=== PATIENT | male | born 1965 | race Caucasian/White ===

== ENCOUNTER 2020-06-30 12:16 | Inpatient (IN) | payer OTHER ==
[~2020-06-30] VITALS: Ht 175.3 cm; Wt 194.8 kg
[~2020-06-30 12:16] MED LIST: ALBU2.5V8 NEB; ALPR0.25 PO; ASPI-886 PO; ATOR10TA60 PO; BUSP10TA PO; CIPR200V4 IV; DICL100G54 TP; FLUC100T7 PO; FURO-68 PO; GABA-585 PO; GLIM4TAB8 PO; HYDR10TA2 PO; INSU100V31 SQ; INSU200I4 SQ; LISI10TA2 PO; LORA0.5T PO; LORA0.5T96 PO; MECL12.574 PO; METF500T16 PO; METO50TA29 PO; METO50TA4 PO; OXYC10TA46 PO; OXYC1TAB22 PO; PARO10TA57 PO; PHEN37.599 PO; PIOG30TA41 PO; PROC25SU21 RC; SENN8.6T4 PO; SIMV5TAB PO; TOPI25TA52 PO; WARF1TAB69 PO; ZOLP5TAB PO
[2020-06-30 13:06] LABS: BASO # 0.1 x10^3/uL (0.0-0.2); BASO % 1 % (0-3); EOS # 0.2 x10^3/uL (0.0-0.7); EOS % 2 % (0-3); HEMATOCRIT 38.5 % (39.0-53.0); HEMOGLOBIN 12.8 g/dL (13.0-17.5); LYMPH # 1.7 x10^3/uL (1.0-4.8); LYMPH % 16 % (24-48); MEAN CORPUSCULAR HEMOGLOBIN 30 pg (25-35); MEAN CORPUSCULAR HGB CONC 33 g/dL (31-37); MEAN CORPUSCULAR VOLUME 88 fL (79-100); MONO # 0.9 x10^3/uL (0.0-1.1); MONO % 9 % (0-9); NEUT # 7.9 x10^3/uL (1.8-7.7); NEUT % 73 % (31-73); PLATELET COUNT 229 x10^3/uL (140-400); RED BLOOD COUNT 4.35 x10^6/uL (4.30-5.70); RED CELL DISTRIBUTION WIDTH 14.8 % (11.5-14.5); WHITE BLOOD COUNT 10.7 x10^3/uL (4.0-11.0)
[2020-06-30 13:18] LABS: CALCIUM 8.9 mg/dL (8.5-10.1); CREATININE 0.7 mg/dL (0.7-1.3); POTASSIUM 3.8 mmol/L (3.5-5.1)
[2020-06-30 13:24] LABS: ALBUMIN/GLOBULIN RATIO 0.8 (1.0-1.7); MAGNESIUM 2.1 mg/dL (1.8-2.4); TOTAL BILIRUBIN 0.3 mg/dL (0.2-1.0); TOTAL PROTEIN 6.7 g/dL (6.4-8.2)
--- NOTE | 2020-06-30 13:57 | RAD ---
EXAM: CHEST 1 VIEW History: Shortness of breath COMPARISON: 06/19/2019 TECHNIQUE: Single portable radiograph of the chest FINDINGS: Mild cardiomegaly. Mild bibasilar lung airspace opacities likely atelectasis or infiltrate s slightly increased The costophrenic sulci are clear and well demarcated. IMPRESSION: Mild bibasilar airspace opacities likely atelectasis or infiltrates improved since prior exam.. Electronically signed by: Kevin Saenz MD (06/30/2020 1:54 PM) [id number]
[2020-06-30] MEDS ORDERED: FUROSEMIDE 40 MG/4 ML VIAL. IVP ONE (14:15)
--- NOTE | 2020-06-30 14:19 | PHYS DOC ---
Past Medical History Past Medical History: CHF, Diabetes-Type II, Hypertension Additional Past Medical Histor: Chronic back pain Past Surgical History: Tonsillectomy Smoking Status: Former Smoker Alcohol Use: None Drug Use: None General Adult EDM: Chief Complaint: SHORTNESS OF BREATH HPI: HPI: Patient is a 54 year old male who presented to ER for evaluation of trouble breathing with exertion that progressively get worse over 1 month. Patient also said he retained a lot of fluid, gaining more weight. Patient has history of CHF, he is on 40 of Lasix daily at home. Patient also has history of COPD, he is on 1.5 L oxygen at home all the time. Patient denies any cough or fever. Patient denies any chest pain. Patient was diagnosed with COVID-19 infection 4 months ago. Patient was admitted here years ago due to CHF and COPD, he had an echocardiogram done at that time that showed : "Left ventricle systolic function is mildly diminished. The Ejection Fraction is 45%. There is normal LV segmental wall motion. Trace mitral regurgitation. Mild tricuspid regurgitation. The PA pressure was estimated at 33 mmHg. There is no evidence of significant pericardial effusion. Signed by : Kristopher Farah, Electronically Approved : 06/21/2019 18:07:07" Review of Systems: Review of Systems: Constitutional: Denies fever or chills. [] Eyes: Denies change in visual acuity. [] HENT: Denies nasal congestion or sore throat. [] Respiratory: Denies cough, POSITIVE FOR shortness of breath. [] Cardiovascular: Denies chest pain, POSITIVE FOR edema. [] GI: Denies abdominal pain, nausea, vomiting, bloody stools or diarrhea. [] : Denies dysuria. [] Musculoskeletal: Denies back pain or joint pain. [] Integument: Denies rash. [] Neurologic: Denies headache, focal weakness or sensory changes. [] Endocrine: Denies polyuria or polydipsia. [] Lymphatic: Denies swollen glands. [] Psychiatric: Denies depression or anxiety. [] Heart Score: Risk Factors: Risk Factors: DM, Current or recent (<one month) smoker, HTN, HLP, family history of CAD, obesity. Risk Scores: Score 0 - 3: 2.5% MACE over next 6 weeks - Discharge Home Score 4 - 6: 20.3% MACE over next 6 weeks - Admit for Clinical Observation Score 7 - 10: 72.7% MACE over next 6 weeks - Early Invasive Strategies Current Medications: Current Medications Medications (Trade) Dose Ordered Sig/Jeremy Start Time Stop Time Status Last Admin Dose Admin Furosemide (Lasix) 60 mg 1X ONCE 06/30/20 14:15 06/30/20 14:16 Allergies: Allergies: Allergies Coded Allergies Type Severity Reaction Last Updated Verified Penicillins Allergy Intermediate Rash 06/20/19 Yes guaifenesin Allergy Intermediate 06/20/19 Yes theophylline Allergy Intermediate 06/20/19 Yes Physical Exam: PE: Constitutional: Well developed, well nourished, no acute distress, non-toxic appearance. [] HENT: Normocephalic, atraumatic, bilateral external ears normal, oropharynx moist, no oral exudates, nose normal. [] Eyes: PERRLA, EOMI, conjunctiva normal, no discharge. [] Neck: Normal range of motion, no tenderness, supple, no stridor. [] Cardiovascular: TACHYCARDIA, IRREGULAR rate regular rhythm, no murmur [] Lungs & Thorax: Bilateral breath sounds clear to auscultation [] Abdomen: Bowel sounds normal, soft, no tenderness, no masses, no pulsatile masses. ABDOMINAL WALL EDEMA Skin: Warm, dry, no erythema, no rash. [] Back: No tenderness, no CVA tenderness. [] Extremities: No tenderness, no cyanosis, no clubbing, ROM intact, BILATERAL LOWER EXTREMITIES KAYY Neurologic: Alert and oriented X 3, normal motor function, normal sensory function, no focal deficits noted. [] Psychologic: Affect normal, judgement normal, mood normal. [] Current Patient Data: Labs: Laboratory Tests Test 06/30/20 12:52 White Blood Count 10.7 x10^3/uL (4.0-11.0) Red Blood Count 4.35 x10^6/uL (4.30-5.70) Hemoglobin 12.8 g/dL (13.0-17.5) L Hematocrit 38.5 % (39.0-53.0) L Mean Corpuscular Volume 88 fL (79-100) Mean Corpuscular Hemoglobin 30 pg (25-35) Mean Corpuscular Hemoglobin Concent 33 g/dL (31-37) Red Cell Distribution Width 14.8 % (11.5-14.5) H Platelet Count 229 x10^3/uL (140-400) Neutrophils (%) (Auto) 73 % (31-73) Lymphocytes (%) (Auto) 16 % (24-48) L Monocytes (%) (Auto) 9 % (0-9) Eosinophils (%) (Auto) 2 % (0-3) Basophils (%) (Auto) 1 % (0-3) Neutrophils # (Auto) 7.9 x10^3/uL (1.8-7.7) H Lymphocytes # (Auto) 1.7 x10^3/uL (1.0-4.8) Monocytes # (Auto) 0.9 x10^3/uL (0.0-1.1) Eosinophils # (Auto) 0.2 x10^3/uL (0.0-0.7) Basophils # (Auto) 0.1 x10^3/uL (0.0-0.2) Sodium Level 141 mmol/L (136-145) Potassium Level 3.8 mmol/L (3.5-5.1) Chloride Level 103 mmol/L (98-107) Carbon Dioxide Level 36 mmol/L (21-32) H Anion Gap 2 (6-14) L Blood Urea Nitrogen 14 mg/dL (8-26) Creatinine 0.7 mg/dL (0.7-1.3) Estimated GFR (Cockcroft-Gault) 118.0 BUN/Creatinine Ratio 20 (6-20) Glucose Level 123 mg/dL (70-99) H Calcium Level 8.9 mg/dL (8.5-10.1) Magnesium Level 2.1 mg/dL (1.8-2.4) Total Bilirubin 0.3 mg/dL (0.2-1.0) Aspartate Amino Transferase (AST) 15 U/L (15-37) Alanine Aminotransferase (ALT) 32 U/L (16-63) Alkaline Phosphatase 73 U/L (46-116) Troponin I Quantitative < 0.017 ng/mL (0.000-0.055) ST-Gbm-V-Type Natriuretic Peptide 699 pg/mL (0-124) H Total Protein 6.7 g/dL (6.4-8.2) Albumin 3.0 g/dL (3.4-5.0) L Albumin/Globulin Ratio 0.8 (1.0-1.7) L Lipase 52 U/L (73-393) L Laboratory Tests 06/30/20 12:52 Laboratory Tests 06/30/20 12:52 Vital Signs: Vital Signs Date Time Temp Pulse Resp B/P (MAP) Pulse Ox O2 Delivery O2 Flow Rate FiO2 06/30/20 12:35 98.6 104 26 144/100 (115) Room Air 98.6 EKG: EKG: EKG was done at 1241, heart rate of 103 bpm, atrial fibrillation no STEMI. Radiology/Procedures: Radiology/Procedures: [id number] [place] [address] IMAGING REPORT Signed PATIENT: LORENZO PAT ACCOUNT: [id number] : 1965 LOCATION: ER AGE: 54 SEX: M EXAM STATUS: REG ER ORD. PHYSICIAN: NASIR REDDING DO REASON: soa PROCEDURE: CHEST AP ONLY EXAM: CHEST 1 VIEW History: Shortness of breath COMPARISON: 06/19/2019 TECHNIQUE: Single portable radiograph of the chest FINDINGS: Mild cardiomegaly. Mild bibasilar lung airspace opacities likely atelectasis or infiltrates slightly increased The costophrenic sulci are clear and well demarcated. IMPRESSION: Mild bibasilar airspace opacities likely atelectasis or infiltrates improved since prior exam.. Electronically signed by: Kevin Saenz MD (06/30/2020 1:54 PM) [id number] DICTATED and SIGNED BY: KEVIN SAENZ MD DATE: 06/30/20 [id number] Course & Med Decision Making: Course & Med Decision Making Pertinent Labs and Imaging studies reviewed. (See chart for details) 54-year-old man who was evaluated in ER due to trouble breathing with exertion getting worse over 1 month. Patient had COVID-19 infection 4 months ago, patient said he has been gaining weight and retaining fluid. Patient has been taking Lasix at home but not helping much. Patient was found to be in atrial fibrillation with RVR, his heart rate has been fluctuating between 100-1 40 in the ER. Patient will be given Cardizem, IV Lasix, will get him admitted to hospital for further evaluation and treatment. Dragon Disclaimer: Dragon Disclaimer: This electronic medical record was generated, in whole or in part, using a voice recognition dictation system. Departure Departure Impression: Primary Impression: CHF (congestive heart failure) Additional Impression: Atrial fibrillation with RVR Disposition: ADMITTED INPT THIS HOSP Admitting Physician: Mina Hernandez Condition: IMPROVED Referrals: MINA HERNANDEZ MD (PCP) NASIR REDDING DO Jun 30, 2020 14:19
[2020-06-30] MEDS ORDERED: dilTIAZem IV PUSH 25 MG/5 ML VIAL IVP ONE (15:15)
[2020-06-30 16:43] LABS: BILIRUBIN,URINE NEGATIVE (NEG); CLARITY,URINE CLEAR; COLOR,URINE YELLOW; NITRITE,URINE NEGATIVE (NEG); PH,URINE 5.5 (<5.0-8.0); PROTEIN,URINE NEGATIVE (NEG-TRACE); UROBILINOGEN,URINE 0.2 mg/dL (0.2 mg/dL)
[2020-06-30 16:57] LABS: BACTERIA,URINE FEW /HPF (0-FEW); RBC,URINE 0 /HPF (0-2); WBC,URINE OCC /HPF (0-4)
[2020-06-30 20:09] VITALS: BP 182/86
[2020-06-30 21:09] VITALS: BP 141/68
[2020-06-30] MEDS ORDERED: ASPI325T8 PO (21:19)
[2020-06-30 22:09] VITALS: BP 142/67
[2020-06-30] MEDS ORDERED: ALBUTEROL SULFATE 2.5 MG/3 ML NEBU. NEB PRN (22:15)
[2020-06-30] MEDS ORDERED: DEXTROSE 50% 25 GM / 50ML DISP.SYRIN. IV PRN (22:15)
[2020-06-30 22:54] VITALS: BP 149/74
[2020-06-30] MEDS: ATORVASTATIN CALCIUM 10 MG TABLET. PO SCH (22:58)
[2020-06-30] MEDS: INSULIN GLARGINE SYRINGE. SQ SCH (22:59)
[2020-06-30 23:07] VITALS: BP 149/74
[2020-06-30 23:09] VITALS: BP 146/80
[2020-07-01] VITALS (16 sets, daily range): BP systolic 125–223; BP diastolic 58–100
[2020-07-01] MEDS ORDERED: ASPIRIN ENTERIC COATED 81 MG TABLET.DR. PO SCH (08:00)
[2020-07-01] MEDS: INSULIN LISPRO 300 UNITS/3 ML VIAL. SQ SCH ×3 (08:00→17:23)
[2020-07-01] MEDS ORDERED: METOPROLOL SUCC 24HR ER 50 MG TAB.ER.24H. PO SCH (09:00)
[2020-07-01] MEDS ORDERED: FUROSEMIDE 40 MG TABLET. PO SCH (09:00)
--- NOTE | 2020-07-01 09:01 | HP ---
ADMIT DATE: 06/30/2020 CHIEF COMPLAINT AND HISTORY OF PRESENT ILLNESS: This 54-year-old white male is well known to me from followup in the office. The patient presented to the Emergency Room after a month or more progressive shortness of breath and increasing generalized body edema. He admits to orthopnea. He has gotten more short of breath with trying to transfer or move around his house. The patient also complains of lower back and hip and leg discomfort, which he has had for some time, which has gotten much worse. His remedy to that has been trying of changing positions, but is miserable pretty much all the time. He was admitted for what was felt to be an exacerbation of COPD versus congestive heart failure and atrial fibrillation with a rapid ventricular response that he had at the time of admission, which is new. PAST MEDICAL HISTORY: Remarkable for hypertension, diabetes, chronic back pain, congestive heart failure, COPD. He has been felt to have Pickwickian-type syndrome in the past. MEDICATIONS: Brought with the patient, listed on the computer and have been addressed. ALLERGIES: HE IS ALLERGIC TO GUAIFENESIN, PENICILLIN, THEOPHYLLINE. SOCIAL HISTORY: He is a former smoker. Does not drink alcohol or use drugs. Lives at home with his . FAMILY HISTORY: Noncontributory. REVIEW OF SYSTEMS: As mentioned above. PHYSICAL EXAMINATION: GENERAL: He is well-developed, well-nourished, obese white male sitting up, eating breakfast, in no acute respiratory distress. VITAL SIGNS: Stable. He is afebrile. O2 is good at 2 liters per nasal cannula. HEAD, EYES, EARS, NOSE AND THROAT: Remarkable for oxygen per nasal cannula. NECK: Supple without adenopathy or thyromegaly. CHEST: Reveals distant breath sounds. HEART: Irregularly irregular. ABDOMEN: Obese without hepatosplenomegaly, masses, tenderness. EXTREMITIES: Reveal diffuse anasarca. LABORATORY DATA: Shows hemoglobin 12.8. White count and platelets are within normal limits. BNP is elevated at 699. CO2 was high at 36 suggestive of CO2 retention. Troponin x 2 has been negative. Albumin is low at 3. Urinalysis is unremarkable. Chest x-ray done on admission shows mild bibasilar airspace opacities, likely atelectasis or infiltrates, improved since prior exam. IMPRESSION: 1. Congestive heart failure. 2. Atrial fibrillation with rapid ventricular response. 3. Chronic obstructive pulmonary disease. 4. Diabetes. PLAN: I am going to ask Cardiology as well as Pulmonary to see the patient in consultation. We will continue to try diuresis for which at least the initial round here has not been very successful in producing any and the patient will be monitored, managed and treated appropriately. MINA SIMEON MD DR: RACHEL/best JOB#: [id number] / [id number]
[2020-07-01] MEDS: LISINOPRIL 10 MG TABLET PO SCH (09:22)
--- NOTE | 2020-07-01 10:15 | PDOC2 ---
ADEOLA JJ HAT IRONER 07/01/20 1015: CARDIAC CONSULT DATE OF CONSULT Date of Consult DATE: 07/01/20 TIME: 10:13 REASON FOR CONSULT Reason for Consult: AFIB RVR, CHF SOURCE Source: Chart review, Patient HISTORY OF PRESENT ILLNESS HISTORY OF PRESENT ILLNESS This is a pleasnt 54 yo male admitted for complains of shortness of breath. Reports that he uses 1-3 LPM of O2 at home. He has been having SOA in the last month and worse in the last 2 weeks. No chest pain and no palpitations but positive for significant increase in leg swelling. Denies fever or productive cough. NO fever or chills. He did have Covid-19 about 4 months ago. He does ta ke lasix but reported did not call his Dr. and did not take any extra dose of lasix. He does not follow his DM diet and his BG at home is averaging about 180s when he checks it. He does not check his BP at home. Upon admission he was noted with AFIB RVR which is new for him. PAST MEDICAL HISTORY Cardiovascular: CHF, HTN, Hyperlipidemia, Other (cardiiomyopathy) Pulmonary: COPD, Pneumonia, Other (LAURA; covid-19) CENTRAL NERVOUS SYSTEM: Other (tremors) GI: GERD Musculoskeletal: low back pain, Osteoarthritis Endocrine: Diabetes (2) PAST SURGICAL HISTORY Past Surgical History: Tonsillectomy FAMILY HISTORY Family History noncontributory SOCIAL HISTORY Smoke: Quit ALCOHOL: none Drugs: None Lives: Alone CURRENT MEDICATIONS CURRENT MEDICATIONS Current Medications Medications (Trade) Dose Ordered Sig/Jeremy Route PRN Reason Start Time Stop Time Status Last Admin Dose Admin Furosemide (Lasix) 60 mg 1X ONCE IVP 06/30/20 14:15 06/30/20 14:16 DC 06/30/20 15:14 Diltiazem HCl (Cardizem Iv Push) 40 mg 1X ONCE IVP 06/30/20 15:15 06/30/20 15:20 DC 06/30/20 15:54 Diltiazem HCl 125 mg/Sodium Chloride 125 ml @ 5 mls/hr CONT PRN IV SEE I/O RECORD 06/30/20 16:00 07/01/20 09:20 Atorvastatin Calcium (Lipitor) 10 mg QHS PO 06/30/20 23:00 06/30/20 22:58 Furosemide (Lasix) 40 mg DAILY PO 07/01/20 09:00 07/01/20 09:21 Lisinopril (Prinivil) 10 mg DAILY PO 07/01/20 09:00 07/01/20 09:22 Metoprolol Succinate (Toprol Xl) 50 mg DAILY PO 07/01/20 09:00 07/01/20 09:22 Insulin Glargine (Lantus Syringe) 160 unit QHS SQ 06/30/20 23:00 06/30/20 22:59 Aspirin (Ecotrin) 81 mg DAILYWBKFT PO 07/01/20 08:00 07/01/20 09:22 ALLERGIES ALLERGIES: Coded Allergies: Penicillins (Verified Allergy, Intermediate, Rash, 06/20/19) guaifenesin (Verified Allergy, Intermediate, 06/20/19) theophylline (Verified Allergy, Intermediate, 06/20/19) ROS Review of System 14 point ROS evaluated with pertinent positives noted per HPI PHYSICAL EXAM General: Alert, Oriented X3, Cooperative, No acute distress HEENT: Atraumatic, Mucous membr. moist/pink Lungs: Other (diminished) Heart: Regular rate (SR), Other (distant heart sounds) Abdomen: Other (Obese) Extremities: No cyanosis, Other (big edematous legs) Skin: Other (LE venous dermatitis) Neuro: Normal speech, Sensation intact Psych/Mental Status: Mental status NL, Mood NL MUSCULOSKELETAL: Osteoarthritic changes both hands VITALS/I&O VITALS/I&O: Vital Signs Date Time Temp Pulse Resp B/P (MAP) Pulse Ox O2 Delivery O2 Flow Rate FiO2 07/01/20 09:22 75 190/85 07/01/20 08:58 95 Nasal Cannula 2.5 07/01/20 07:00 98.3 22 98.3 I & O 06/30/20 06/30/20 07/01/20 15:00 23:00 07:00 Intake Total 1040 ml Output Total 350 ml 200 ml Balance -350 ml 840 ml LABS Lab: Laboratory Tests Test 06/30/20 12:52 06/30/20 16:10 06/30/20 17:24 White Blood Count 10.7 x10^3/uL (4.0-11.0) Red Blood Count 4.35 x10^6/uL (4.30-5.70) Hemoglobin 12.8 g/dL (13.0-17.5) L Hematocrit 38.5 % (39.0-53.0) L Mean Corpuscular Volume 88 fL (79-100) Mean Corpuscular Hemoglobin 30 pg (25-35) Mean Corpuscular Hemoglobin Concent 33 g/dL (31-37) Red Cell Distribution Width 14.8 % (11.5-14.5) H Platelet Count 229 x10^3/uL (140-400) Neutrophils (%) (Auto) 73 % (31-73) Lymphocytes (%) (Auto) 16 % (24-48) L Monocytes (%) (Auto) 9 % (0-9) Eosinophils (%) (Auto) 2 % (0-3) Basophils (%) (Auto) 1 % (0-3) Neutrophils # (Auto) 7.9 x10^3/uL (1.8-7.7) H Lymphocytes # (Auto) 1.7 x10^3/uL (1.0-4.8) Monocytes # (Auto) 0.9 x10^3/uL (0.0-1.1) Eosinophils # (Auto) 0.2 x10^3/uL (0.0-0.7) Basophils # (Auto) 0.1 x10^3/uL (0.0-0.2) Sodium Level 141 mmol/L (136-145) Potassium Level 3.8 mmol/L (3.5-5.1) Chloride Level 103 mmol/L (98-107) Carbon Dioxide Level 36 mmol/L (21-32) H Anion Gap 2 (6-14) L Blood Urea Nitrogen 14 mg/dL (8-26) Creatinine 0.7 mg/dL (0.7-1.3) Estimated GFR (Cockcroft-Gault) 118.0 BUN/Creatinine Ratio 20 (6-20) Glucose Level 123 mg/dL (70-99) H Calcium Level 8.9 mg/dL (8.5-10.1) Magnesium Level 2.1 mg/dL (1.8-2.4) Total Bilirubin 0.3 mg/dL (0.2-1.0) Aspartate Amino Transferase (AST) 15 U/L (15-37) Alanine Aminotransferase (ALT) 32 U/L (16-63) Alkaline Phosphatase 73 U/L (46-116) Troponin I Quantitative < 0.017 ng/mL (0.000-0.055) < 0.017 ng/mL (0.000-0.055) NN-Huq-W-Type Natriuretic Peptide 699 pg/mL (0-124) H Total Protein 6.7 g/dL (6.4-8.2) Albumin 3.0 g/dL (3.4-5.0) L Albumin/Globulin Ratio 0.8 (1.0-1.7) L Lipase 52 U/L (73-393) L Thyroid Stimulating Hormone (TSH) 2.399 uIU/mL (0.358-3.74) Urine Collection Type Unknown Urine Color Yellow Urine Clarity Clear Urine pH 5.5 (<5.0-8.0) Urine Specific [place] <=1.005 (1.000-1.030) Urine Protein Negative mg/dL (NEG-TRACE) Urine Glucose (UA) Negative mg/dL (NEG) Urine Ketones (Stick) Negative mg/dL (NEG) Urine Blood Negative (NEG) Urine Nitrite Negative (NEG) Urine Bilirubin Negative (NEG) Urine Urobilinogen Dipstick 0.2 mg/dL (0.2 mg/dL) Urine Leukocyte Esterase Negative (NEG) Urine RBC 0 /HPF (0-2) Urine WBC Occ /HPF (0-4) Urine Squamous Epithelial Cells Occ /LPF Urine Bacteria Few /HPF (0-FEW) Laboratory Tests 06/30/20 12:52 Laboratory Tests 06/30/20 12:52 ECHOCARDIOGRAM ECHOCARDIOGRAM <Conclusion> Technically difficult study. Left ventricle systolic function is mildly diminished. The Ejection Fraction is 45%. There is normal LV segmental wall motion. Trace mitral regurgitation. Mild tricuspid regurgitation. The PA pressure was estimated at 33 mmHg. There is no evidence of significant pericardial effusion. DATE: 06/21/19 1234 ASSESSMENT/PLAN ASSESSMENT/PLAN 1. AFIB RVR: new finding. No SR 2. HTN urgency: does not check BP at home 3. Acute on chronic diastolic CHF 4. Morbid obesity with likely LAURA 5. DM2 6. HLP 7. Acute on chronic hypercapnic respiratory failure with likely LAURA and CHF Recommendations 1. Lasix therapy K replacement 2. ECASA. MCOT and note burden and guid any need for antiarrhythmic therapy and anticoagulation 3. Toprol XL 100 mg daily. 4. Follow up in office 5. Bipap PRN especially at hs 6. TTE TINY CHURCH MD 07/01/20 9865: CARDIAC CONSULT ASSESSMENT/PLAN ASSESSMENT/PLAN Patient seen and examined. Agree with VENDOR MANAGEMENT SPECIALIST's assessment and plan. AF with RVR, newly diagnosed, presently back in SR Acute on chr diastolic HF better compensated Agree with BB for AF and BP control Check 2D echo to assess LVF Plan ischemic evaluation and event monitor as outpatient Thank you for your consultation ADEOLA JJ APRN Jul 01, 2020 10:15 TINY CHURCH MD Jul 01, 2020 16:48
[2020-07-01] MEDS ORDERED: METOPROLOL SUCC 24HR ER 50 MG TAB.ER.24H. PO ONE (11:00)
[2020-07-01] MEDS ORDERED: METOPROLOL TART IMMED RELEASE 50 MG TABLET. PO ONE (11:30)
[2020-07-01] MEDS ORDERED: FUROSEMIDE 40 MG/4 ML VIAL. IVP ONE (11:30)
[2020-07-01] MEDS ORDERED: POTASSIUM CHLORIDE 20 MEQ TABLET.ER. PO ONE (11:30)
[2020-07-01] MEDS ORDERED: PERFLUTREN PROTEIN-A MICROSPHR 0.22 MG/ML 3 ML VIAL. IV ONE ×2 (13:00)
--- NOTE | 2020-07-01 14:47 | NUR ---
SS following for discharge planning. SS reviewed pt chart and discussed with pt RN. Pt is from home with spouse and is currently requiring oxygen via nasal canula. Pt has home oxygen. Cardiology following. SS will continue to follow for discharge planning.
[2020-07-01] MEDS: FUROSEMIDE 40 MG/4 ML VIAL. IVP SCH (17:22)
--- NOTE | 2020-07-01 19:08 | CONS ---
DATE OF CONSULTATION: 07/01/2020 ATTENDING PHYSICIAN: Ubaldo Hernandez MD REASON FOR CONSULTATION: The patient seen in pulmonary consultation at the request of Dr. Hernandez for abnormal x-ray and increasing shortness of air. HISTORY OF PRESENT ILLNESS: The patient is a 54-year-old that is known to me from previous hospitalization. In fact, he was here not too long ago with acute on chronic hypoxemic hypercapnic respiratory failure, acute on chronic diastolic heart failure and clinical symptoms compatible with obstructive sleep apnea. At that time, I recommended that the patient undergo polysomnogram. He declined as a result of having to $800 out of pocket. He now presents for increasing shortness of breath. He also had some fluid retention. He was having difficulty lying down flat. He normally wears 1 liter of oxygen at rest and 3 liters with exertion. He had an x-ray, which revealed basilar infiltrates. I was asked to see him in consultation. Since admission, he has been on oxygen supplementation around 2-3 liters. He has been diuresed. He denies fever or chills. No COVID-19 exposures. PAST MEDICAL HISTORY: Remarkable for diabetes, chronic back problems, morbid obesity, hypertension. He did have asthma as a child. He also smoked and possibly has a combination of COPD with an asthma component, he quit 5 years ago. He has a clinical presentation compatible with obstructive sleep apnea. As indicated above, the patient declined a polysomnogram as a result of out of pocket copay. PAST SURGICAL HISTORY: No recent major surgeries. ALLERGIES: PENICILLIN, GUAIFENESIN, AND THEOPHYLLINE. REVIEW OF SYSTEMS: As indicated above, otherwise a 10-point system was reviewed and negative. CONSTITUTIONAL: No fever or chills. EYES: No changes in visual acuity. HENT: No nasal congestion or sore throat. PULMONARY: As indicated above. CARDIOVASCULAR: No chest pain. No pressure. GASTROINTESTINAL: No nausea, vomiting, or diarrhea. GENITOURINARY: No dysuria or frequency. MUSCULOSKELETAL: No localized muscle aches or joint pains. SKIN: No new skin rashes. MEDICATIONS: List was reviewed. At one point, he was on Cardizem drip. He is receiving albuterol nebulizer. He is currently on diltiazem. He is on Lasix, metoprolol. PHYSICAL EXAMINATION: GENERAL: Morbid obese individual, in no respiratory distress. BMI was 64. He weighed 196 kilos. HEENT: Eyes, the sclerae were nonicteric. NECK: Jugular venous distention could not be assessed secondary to body habitus. CHEST: Full expansion. LUNGS: Poor flow. No wheezes. CARDIOVASCULAR: Regular rate and rhythm with S1, S2. No S3. ABDOMEN: Soft, nontender, nondistended. Obese. EXTREMITIES: 1+ edema. NEUROLOGIC: The patient was awake, alert. No focal deficits. LABORATORY DATA: White count was normal. Hemoglobin and hematocrit were noted. Electrolytes were noted. IMPRESSION: 1. Acute on chronic systolic heart failure. 2. Atrial fibrillation. 3. Hypertensive urgency. 4. Paroxysmal atrial fibrillation. 5. Morbid obesity. 6. Obstructive sleep apnea. 7. Chronic obstructive pulmonary disease with an asthma component. 8. COVID-19 infection 4 months ago. PLAN: 1. Recommend to continue diuresis. 2. Control heart rate. 3. Follow Cardiology input. 4. I reviewed the risks, benefits and alternatives to obtaining a polysomnogram. I will do my best to try to find a DME that will perform an outpatient polysomnogram at home with minimal out of pocket expense. The patient is to call my office if he gets discharged over the weekend to try to set that up. For now, continue oxygen supplementation, no need for antibiotics. RAMANDEEP VO MD DR: MELANIE/best JOB#: [id number] / [id number]
[2020-07-01] MEDS: INSULIN GLARGINE SYRINGE. SQ SCH (21:00)
[2020-07-01] MEDS: ATORVASTATIN CALCIUM 10 MG TABLET. PO SCH (21:00)
[2020-07-02 03:15] VITALS: BP 110/54
--- NOTE | 2020-07-02 05:31 | PDOC ---
PULMONARY PROGRESS NOTES DATE: 07/02/20 TIME: 05:29 Subjective on 02 1.5 lpm, sob better, denies cough, is on home 02, never had psg Vitals Vital Signs Date Time Temp Pulse Resp B/P (MAP) Pulse Ox O2 Delivery O2 Flow Rate FiO2 07/02/20 03:15 98.4 70 18 110/54 (72) 97 Nasal Cannula 2.5 98.4 ROS: No Nausea, No Chest Pain General: Alert, Oriented X4 HEENT: Other (nc at perrl ) Lungs: Clear Cardiovascular: S1, S2 Abdomen: Soft, Non-tender, Other Neuro Exam: Alert Extremities: Other (edema) Skin: Warm Labs Laboratory Tests Test 06/30/20 12:52 06/30/20 16:10 06/30/20 17:24 White Blood Count 10.7 x10^3/uL (4.0-11.0) Red Blood Count 4.35 x10^6/uL (4.30-5.70) Hemoglobin 12.8 g/dL (13.0-17.5) Hematocrit 38.5 % (39.0-53.0) Mean Corpuscular Volume 88 fL (79-100) Mean Corpuscular Hemoglobin 30 pg (25-35) Mean Corpuscular Hemoglobin Concent 33 g/dL (31-37) Red Cell Distribution Width 14.8 % (11.5-14.5) Platelet Count 229 x10^3/uL (140-400) Neutrophils (%) (Auto) 73 % (31-73) Lymphocytes (%) (Auto) 16 % (24-48) Monocytes (%) (Auto) 9 % (0-9) Eosinophils (%) (Auto) 2 % (0-3) Basophils (%) (Auto) 1 % (0-3) Neutrophils # (Auto) 7.9 x10^3/uL (1.8-7.7) Lymphocytes # (Auto) 1.7 x10^3/uL (1.0-4.8) Monocytes # (Auto) 0.9 x10^3/uL (0.0-1.1) Eosinophils # (Auto) 0.2 x10^3/uL (0.0-0.7) Basophils # (Auto) 0.1 x10^3/uL (0.0-0.2) Sodium Level 141 mmol/L (136-145) Potassium Level 3.8 mmol/L (3.5-5.1) Chloride Level 103 mmol/L (98-107) Carbon Dioxide Level 36 mmol/L (21-32) Anion Gap 2 (6-14) Blood Urea Nitrogen 14 mg/dL (8-26) Creatinine 0.7 mg/dL (0.7-1.3) Estimated GFR (Cockcroft-Gault) 118.0 BUN/Creatinine Ratio 20 (6-20) Glucose Level 123 mg/dL (70-99) Calcium Level 8.9 mg/dL (8.5-10.1) Magnesium Level 2.1 mg/dL (1.8-2.4) Total Bilirubin 0.3 mg/dL (0.2-1.0) Aspartate Amino Transf (AST/SGOT) 15 U/L (15-37) Alanine Aminotransferase (ALT/SGPT) 32 U/L (16-63) Alkaline Phosphatase 73 U/L (46-116) Troponin I Quantitative < 0.017 ng/mL (0.000-0.055) < 0.017 ng/mL (0.000-0.055) NU-Mim-P-Type Natriuretic Peptide 699 pg/mL (0-124) Total Protein 6.7 g/dL (6.4-8.2) Albumin 3.0 g/dL (3.4-5.0) Albumin/Globulin Ratio 0.8 (1.0-1.7) Lipase 52 U/L (73-393) Thyroid Stimulating Hormone (TSH) 2.399 uIU/mL (0.358-3.74) Urine Collection Type Unknown Urine Color Yellow Urine Clarity Clear Urine pH 5.5 (<5.0-8.0) Urine Specific [place] <=1.005 (1.000-1.030) Urine Protein Negative mg/dL (NEG-TRACE) Urine Glucose (UA) Negative mg/dL (NEG) Urine Ketones (Stick) Negative mg/dL (NEG) Urine Blood Negative (NEG) Urine Nitrite Negative (NEG) Urine Bilirubin Negative (NEG) Urine Urobilinogen Dipstick 0.2 mg/dL (0.2 mg/dL) Urine Leukocyte Esterase Negative (NEG) Urine RBC 0 /HPF (0-2) Urine WBC Occ /HPF (0-4) Urine Squamous Epithelial Cells Occ /LPF Urine Bacteria Few /HPF (0-FEW) Medications Active Scripts Medications Dose Route/Sig Max Daily Dose Days Date Category Aspirin 325 Mg Tablet 325 Mg PO DAILY 06/30/20 Reported Lasix (Furosemide) 40 Mg Tablet 1 Tab PO DAILY 30 06/24/19 Rx Topamax (Topiramate) 25 Mg Tablet 25 Mg PO BID 30 06/24/19 Rx Aspirin Ec (Aspirin) 81 Mg Tablet.dr 81 Mg PO DAILYWBKFT 30 06/24/19 Rx Lisinopril 10 Mg Tablet 10 Mg PO DAILY 30 06/24/19 Rx Toprol XL (Metoprolol Succinate) 50 Mg Tab.er.24h 50 Mg PO DAILY 30 06/24/19 Rx Atorvastatin Calcium 10 Mg Tablet 10 Mg PO QHS 30 06/24/19 Rx Proair Hfa (Albuterol Sulfate) 8.5 Gm Hfa.aer.ad 2.5 Mg NEB PRN Q4HRS PRN 30 06/24/19 Rx Novolog (Insulin Aspart) 100 Unit/1 Ml Vial 50 Unit SQ TIDWMEALHC 06/19/19 Reported Tresiba Flextouch U-200 (Insulin Degludec) 200 Unit/1 Ml Insuln.pen 160 Unit SQ DAILY 06/19/19 Reported Impression . IMPRESSION: 1. Acute on chronic systolic heart failure. 2. COVID-19 infection 4 months ago. 3. Hypertensive urgency. 4. Paroxysmal atrial fibrillation. 5. Morbid obesity. 6. Obstructive sleep apnea. 7. Chronic obstructive pulmonary disease with an asthma component. Plan . PLAN: 1. Recommend to continue diuresis. monitor k, cr 2. Control heart rate. 3. Follow Cardiology input. 4. krystle the importance of diagnosis tx discussed 5. BD 6. lose wt dr crowder will do his best to try to find a DME that will perform an outpatient polysomnogram at home with minimal out of pocket expense. discussed w pt MERCY Fallon MD Jul 02, 2020 05:31
[2020-07-02 07:00] VITALS: BP 131/71
[2020-07-02] MEDS: INSULIN LISPRO 300 UNITS/3 ML VIAL. SQ SCH ×3 (08:00→17:00)
[2020-07-02 08:12] LABS: CREATININE 0.9 mg/dL (0.7-1.3); GFR 88.3; MAGNESIUM 2.4 mg/dL (1.8-2.4); POTASSIUM 3.8 mmol/L (3.5-5.1)
[2020-07-02] MEDS: FUROSEMIDE 40 MG/4 ML VIAL. IVP SCH ×2 (08:26→16:09)
[2020-07-02] MEDS: METOPROLOL SUCC 24HR ER 100 MG TAB.ER.24H. PO SCH (08:27)
[2020-07-02] MEDS: POTASSIUM CHLORIDE 20 MEQ TABLET.ER. PO SCH (08:27)
[2020-07-02] MEDS: LISINOPRIL 10 MG TABLET PO SCH (08:27)
[2020-07-02] MEDS: ASPIRIN ENTERIC COATED 325 MG TABLET.DR. PO SCH (08:27)
--- NOTE | 2020-07-02 09:26 | PN ---
DATE: 07/02/2020 LOCATION: Room 209. SUBJECTIVE: This 54-year-old white male remains hospitalized for anasarca and congestive heart failure as well as atrial fibrillation with rapid ventricular response on admission. He feels like his breathing is definitely better, but not back to his baseline and swelling is definitely much worse. He complains a lot about his lower back and hips, allowing him not to lay in bed along with the orthopnea and get virtually no sleep and is requesting something for pain. I discussed with him with his breathing issues that should be minimal and he understands and would like to try some minimal medicine, which would make sense here with him being hospitalized. OBJECTIVE: VITAL SIGNS: Stable. He is afebrile. CHEST: Reveals distant breath sounds, but clear. HEART: Regular rate and rhythm. ABDOMEN: Benign. EXTREMITIES: With lots of edema. IMPRESSION: Congestive heart failure, clinically with some improvement; anasarca; atrial fibrillation with rapid ventricular response, controlled. PLAN: Continue diuresis, outpatient sleep study, follow kidney function and electrolytes. MINA SIMEON MD DR: RACHEL/best JOB#: [id number] / [id number]
--- NOTE | 2020-07-02 09:31 | CARD ---
MR#: [id number] Date of Study: 07/01/2020 Ordering Physician: ADEOLA JJ, Referring Physician: ADEOLA JJ Tech: Sruthi Leroy YRN APPROVED REPORT EXAM: Two-dimensional and M-mode echocardiogram with Doppler and color Doppler. Other Information Quality : Technically LimitedHR: 75bpm Rhythm : NSRTachycardiaNSRTechnically limited study due to body habitus. INDICATION Congestive Heart Failure Echo Enhancing Agent Indication: Endocardial border delineation Agent/Amount Used: Optison 6mL RISK FACTORS Hypertension Obesity Aortic Valve AoV Peak Matty.181.3cm/sAoV VTI43.1cm AO Peak GR.13.1mmHgAO Mean GR.7mmHg Mitral Valve MV E Rzkugxac645.3cm/sMV DECEL EFSL080ai MV A Kcxhvhuz04.7cm/sE/A Ratio1.4 Tricuspid Valve TR P. Ilvgzuji063go/sTR Peak Gr.37mmHg LEFT VENTRICLE The left ventricle appears normal size. The left ventricular systolic function appears normal. Estima delfino ejection fraction 60-65%. There is normal LV segmental wall motion. AORTIC VALVE Doppler revealed no significant aortic regurgitation. MITRAL VALVE Mild mitral regurgitation. TRICUSPID VALVE Doppler revealed at least mild tricuspid regurgitation. Estimated PAP 47 mmHg. GREAT VESSELS na PERICARDIAL EFFUSION There appears to be no evidence of significant pericardial effusion. Critical Notification Critical Value: No <Conclusion> Technically difficult study. Optison echo contrast used. The left ventricular systolic function appears normal. Estimated ejection fraction 60-65%. There is normal LV segmental wall motion. Mild mitral regurgitation. Mild tricuspid regurgitation. Estimated PAP 47 mmHg. There appears to be no evidence of significant pericardial effusion. Signed by : Kristopher Farah, Electronically Approved : 07/02/2020 09:30:38
[2020-07-02 10:51] VITALS: BP 114/37
[2020-07-02] MEDS: HYDROcodone/APAP 7.5/325MG 1 TAB TABLET PO PRN ×2 (13:17→23:13)
[2020-07-02 14:50] VITALS: BP 107/49
--- NOTE | 2020-07-02 16:16 | PDOC ---
PROGRESS NOTES Date of Service: DATE: 07/02/20 TIME: 16:16 Subjective Subjective Feeling better with improvement in dyspnea Objective Objective Vital Signs Date Time Temp Pulse Resp B/P (MAP) Pulse Ox O2 Delivery O2 Flow Rate FiO2 07/02/20 14:50 98.7 75 18 107/49 (68) 96 Nasal Cannula 2.5 98.7 Intake and Output 07/02/20 07:00 Intake Total 1200 ml Output Total 2525 ml Balance -1325 ml Intake Oral 1200 ml Output Urine Total 2525 ml Physical Exam Abdomen: Other (Obese) Heart: Regular rate (SR), Other (distant heart sounds) Extremities: No cyanosis, Other (big edematous legs) General: Alert, Oriented X3, Cooperative, No acute distress HEENT: Atraumatic, Mucous membr. moist/pink Lungs: Other (diminished) Neuro: Normal speech, Sensation intact Psych/Mental Status: Mental status NL, Mood NL Skin: Other (LE venous dermatitis) Assessment Assessment 1. AFIB RVR: newly diagnosed, presently back in sinus rhythm. Continue ASA. Plan event monitor as outpatient to guide antiarrhythmic and anticoagulation therapy 2. HTN urgency: does not check BP at home 3. Acute on chronic diastolic CHF, better compensated with diuresis. 2D echo showed LVEF 60-65%. Plan ischemic eval as outpatient 4. Morbid obesity with likely LAURA 5. DM2: Per IM 6. HLP: statins Plan Plan of Care Problems Medical Problems: (1) Atrial fibrillation with RVR Status: Acute (2) CHF (congestive heart failure) Status: Acute Comment Review of Relevant I have reviewed the following items uma (where applicable) has been applied. Labs Laboratory Tests Test 07/02/20 06:55 Sodium Level 139 mmol/L (136-145) Potassium Level 3.8 mmol/L (3.5-5.1) Chloride Level 99 mmol/L (98-107) Carbon Dioxide Level 36 mmol/L (21-32) Anion Gap 4 (6-14) Blood Urea Nitrogen 18 mg/dL (8-26) Creatinine 0.9 mg/dL (0.7-1.3) Estimated GFR (Cockcroft-Gault) 88.3 Glucose Level 110 mg/dL (70-99) Calcium Level 9.0 mg/dL (8.5-10.1) Magnesium Level 2.4 mg/dL (1.8-2.4) Medications Current Medications Acetaminophen/ Hydrocodone Bitart (Lortab 7.5/325) 1 tab PRN Q6HRS PRN PO PAIN Last administered on 07/02/20at 13:17; Start 07/02/20 at 13:00 Aspirin (Ecotrin) 325 mg DAILYWBKFT PO Last administered on 07/02/20at 08:27; Start 07/02/20 at 08:00 Metoprolol Succinate (Toprol Xl) 100 mg DAILY PO Last administered on 07/02/20at 08:27; Start 07/02/20 at 09:00 Potassium Chloride (Klor-Con) 20 meq DAILYWBKFT PO Last administered on at 08:27; Start 07/02/20 at 08:00 Vitals/I & O Vital Sign - Last 24 Hours 07/01/20 07/01/20 07/01/20 07/02/20 19:05 20:00 23:05 03:15 Temp 98.7 98.2 98.4 98.7 98.2 98.4 Pulse 74 74 70 Resp 20 18 18 B/P (MAP) 135/65 (88) 125/58 (80) 110/54 (72) Pulse Ox 96 99 97 O2 Delivery Nasal Cannula Nasal Cannula Nasal Cannula Nasal Cannula O2 Flow Rate 1.5 1.5 2.5 2.5 07/02/20 07/02/20 07/02/20 07/02/20 07:00 07:37 07:40 08:27 Temp 98.4 98.4 Pulse 74 74 Resp 18 B/P (MAP) 131/71 (91) 131/71 Pulse Ox 95 100 O2 Delivery Nasal Cannula Nasal Cannula Nasal Cannula O2 Flow Rate 2.5 2.5 2.5 07/02/20 07/02/20 07/02/20 07/02/20 08:27 10:51 13:17 14:17 Temp 98.9 98.9 Pulse 74 78 Resp 18 B/P (MAP) 131/71 114/37 (62) Pulse Ox 95 95 96 O2 Delivery Nasal Cannula Nasal Cannula Nasal Cannula O2 Flow Rate 2.5 2.5 2.5 07/02/20 14:50 Temp 98.7 98.7 Pulse 75 Resp 18 B/P (MAP) 107/49 (68) Pulse Ox 96 O2 Delivery Nasal Cannula O2 Flow Rate 2.5 Intake and Output 07/01/20 07/01/20 07/02/20 15:00 23:00 07:00 Intake Total 1000 ml 200 ml Output Total 1600 ml 925 ml Balance -600 ml -725 ml TINY CHURCH MD Jul 02, 2020 16:16
[2020-07-02 19:00] VITALS: BP 109/58
[2020-07-02] MEDS: ATORVASTATIN CALCIUM 10 MG TABLET. PO SCH (23:13)
[2020-07-02] MEDS: CYCLOBENZAPRINE 10 MG TABLET. PO PRN (23:13)
[2020-07-02 23:22] VITALS: BP 125/59
[2020-07-02] MEDS: INSULIN GLARGINE SYRINGE. SQ SCH (23:36)
[2020-07-03 03:05] VITALS: BP 126/57
--- NOTE | 2020-07-03 05:27 | PDOC ---
PULMONARY PROGRESS NOTES DATE: 07/03/20 TIME: 05:24 Subjective on 02 1.5 lpm, is tired, sob better, denies cough, is on home 02, never had psg Vitals Vital Signs Date Time Temp Pulse Resp B/P (MAP) Pulse Ox O2 Delivery O2 Flow Rate FiO2 07/03/20 03:05 98.1 70 16 126/57 (80) 100 Nasal Cannula 2.5 98.1 ROS: No Nausea, No Chest Pain General: Alert, Oriented X4 HEENT: Other (nc at perrl ) Lungs: Other (b lat diminished ) Cardiovascular: S1, S2 Abdomen: Soft, Non-tender, Other Neuro Exam: Alert Extremities: Other (edema chronic changes) Skin: Warm Labs Laboratory Tests Test 07/02/20 06:55 Sodium Level 139 mmol/L (136-145) Potassium Level 3.8 mmol/L (3.5-5.1) Chloride Level 99 mmol/L (98-107) Carbon Dioxide Level 36 mmol/L (21-32) Anion Gap 4 (6-14) Blood Urea Nitrogen 18 mg/dL (8-26) Creatinine 0.9 mg/dL (0.7-1.3) Estimated GFR (Cockcroft-Gault) 88.3 Glucose Level 110 mg/dL (70-99) Calcium Level 9.0 mg/dL (8.5-10.1) Magnesium Level 2.4 mg/dL (1.8-2.4) Laboratory Tests Test 07/02/20 06:55 Sodium Level 139 mmol/L (136-145) Potassium Level 3.8 mmol/L (3.5-5.1) Chloride Level 99 mmol/L (98-107) Carbon Dioxide Level 36 mmol/L (21-32) Anion Gap 4 (6-14) Blood Urea Nitrogen 18 mg/dL (8-26) Creatinine 0.9 mg/dL (0.7-1.3) Estimated GFR (Cockcroft-Gault) 88.3 Glucose Level 110 mg/dL (70-99) Calcium Level 9.0 mg/dL (8.5-10.1) Magnesium Level 2.4 mg/dL (1.8-2.4) Medications Active Scripts Medications Dose Route/Sig Max Daily Dose Days Date Category Aspirin 325 Mg Tablet 325 Mg PO DAILY 06/30/20 Reported Lasix (Furosemide) 40 Mg Tablet 1 Tab PO DAILY 30 06/24/19 Rx Topamax (Topiramate) 25 Mg Tablet 25 Mg PO BID 30 06/24/19 Rx Aspirin Ec (Aspirin) 81 Mg Tablet. 81 Mg PO DAILYWBKFT 30 06/24/19 Rx Lisinopril 10 Mg Tablet 10 Mg PO DAILY 30 06/24/19 Rx Toprol XL (Metoprolol Succinate) 50 Mg Tab.er.24h 50 Mg PO DAILY 30 06/24/19 Rx Atorvastatin Calcium 10 Mg Tablet 10 Mg PO QHS 30 06/24/19 Rx Proair Hfa (Albuterol Sulfate) 8.5 Gm Hfa.aer.ad 2.5 Mg NEB PRN Q4HRS PRN 30 06/24/19 Rx Novolog (Insulin Aspart) 100 Unit/1 Ml Vial 50 Unit SQ TIDWMEALHC 06/19/19 Reported Tresiba Flextouch U-200 (Insulin Degludec) 200 Unit/1 Ml Insuln.pen 160 Unit SQ DAILY 06/19/19 Reported Impression . IMPRESSION: 1. Acute on chronic systolic heart failure. 2. COVID-19 infection 4 months ago. 3. Hypertensive urgency. 4. Paroxysmal atrial fibrillation. 5. Morbid obesity. 6. Obstructive sleep apnea. 7. Chronic obstructive pulmonary disease with an asthma component. Plan . PLAN: 1. Recommend to continue diuresis. monitor k, cr 2. Control heart rate. 3. Follow Cardiology input. 4. krystle the importance of diagnosis tx discussed 5. BD 6. lose wt dr crowder will do his best to try to find a DME that will perform an outpatient polysomnogram at home with minimal out of pocket expense. discussed w pt MERCY Fallon MD Jul 03, 2020 05:27
[2020-07-03 07:24] VITALS: BP 119/68
[2020-07-03] MEDS: INSULIN LISPRO 300 UNITS/3 ML VIAL. SQ SCH ×3 (08:00→17:00)
[2020-07-03] MEDS: POTASSIUM CHLORIDE 20 MEQ TABLET.ER. PO SCH (08:31)
[2020-07-03] MEDS: LISINOPRIL 10 MG TABLET PO SCH (08:31)
[2020-07-03] MEDS: ASPIRIN ENTERIC COATED 325 MG TABLET.DR. PO SCH (08:31)
[2020-07-03] MEDS: FUROSEMIDE 40 MG/4 ML VIAL. IVP SCH ×2 (08:31→16:05)
[2020-07-03] MEDS: METOPROLOL SUCC 24HR ER 100 MG TAB.ER.24H. PO SCH (08:31)
[2020-07-03 08:33] LABS: CALCIUM 8.4 mg/dL (8.5-10.1); GFR 78.2; POTASSIUM 3.7 mmol/L (3.5-5.1)
[2020-07-03 10:48] VITALS: BP 109/77
--- NOTE | 2020-07-03 14:03 | PN ---
DATE: 07/03/2020 DAILY PROGRESS NOTE LOCATION: He is in room 209. SUBJECTIVE: This 54-year-old white male remains hospitalized for anasarca and congestive heart failure as well as atrial fibrillation with rapid ventricular response on admission. He feels like his breathing is approaching his baseline, which is not good, but is much better than when he came in. He is still not able to lay down due to a combination of orthopnea as well as back pain, which is a chronic issue in of itself. OBJECTIVE: VITAL SIGNS: Stable. He is afebrile. CHEST: Distant breath sounds, but clear. HEART: Regular rate and rhythm. ABDOMEN: Benign. EXTREMITIES: Still reveal at least 2-3+ edema. IMPRESSION: 1. Congestive heart failure, clinically improved anasarca with mild improvement. 2. Atrial fibrillation with rapid ventricular response, converted to normal sinus rhythm spontaneously. PLAN: We will continue diuresis for at least another day. Output has been greater than intake and he continues to improve clinically. He will need a sleep study done as an outpatient and Pulmonary is trying to figure out a way to get that arranged. MINA SIMEON MD DR: RACHEL/best JOB#: [id number] / [id number]
[2020-07-03 14:28] VITALS: BP 117/50
--- NOTE | 2020-07-03 14:53 | PDOC ---
PROGRESS NOTES Date of Service: DATE: 07/03/20 TIME: 14:52 Subjective Subjective No new complaints. Objective Objective Vital Signs Date Time Temp Pulse Resp B/P (MAP) Pulse Ox O2 Delivery O2 Flow Rate FiO2 07/03/20 14:28 98.6 73 16 117/50 (72) 96 Nasal Cannula 2.5 98.6 Intake and Output 07/03/20 07:00 Intake Total 1900 ml Output Total 1575 ml Balance 325 ml Intake Oral 1900 ml Output Urine Total 1575 ml Physical Exam Abdomen: Other (Obese) Heart: Regular rate (SR), Other (distant heart sounds) Extremities: No cyanosis, Other (big edematous legs) General: Alert, Oriented X3, Cooperative, No acute distress HEENT: Atraumatic, Mucous membr. moist/pink Lungs: Other (diminished) Neuro: Normal speech, Sensation intact Psych/Mental Status: Mental status NL, Mood NL Skin: Other (LE venous dermatitis) Assessment Assessment 1. AFIB RVR: newly diagnosed, presently back in sinus rhythm. Continue ASA. Plan event monitor as outpatient to guide antiarrhythmic and anticoagulation therapy 2. HTN urgency: Much better controlled since admission. Continue current medical regimen. 3. Acute on chronic diastolic CHF, better compensated with diuresis. 2D echo showed LVEF 60-65%. Plan ischemic eval as outpatient 4. Morbid obesity with likely LAURA 5. DM2: Per IM 6. HLP: statins Plan Plan of Care Problems Medical Problems: (1) Atrial fibrillation with RVR Status: Acute (2) CHF (congestive heart failure) Status: Acute Comment Review of Relevant I have reviewed the following items uma (where applicable) has been applied. Labs Laboratory Tests Test 07/03/20 06:30 Sodium Level 138 mmol/L (136-145) Potassium Level 3.7 mmol/L (3.5-5.1) Chloride Level 97 mmol/L (98-107) Carbon Dioxide Level 36 mmol/L (21-32) Anion Gap 5 (6-14) Blood Urea Nitrogen 21 mg/dL (8-26) Creatinine 1.0 mg/dL (0.7-1.3) Estimated GFR (Cockcroft-Gault) 78.2 Glucose Level 144 mg/dL (70-99) Calcium Level 8.4 mg/dL (8.5-10.1) Medications Current Medications Cyclobenzaprine HCl (Flexeril) 10 mg PRN Q6HRS PRN PO MUSCLE SPASMS Last administered on 07/02/20at 23:13; Start 07/02/20 at 18:45 Vitals/I & O Vital Sign - Last 24 Hours 07/02/20 07/02/20 07/02/20 07/02/20 19:00 20:00 23:13 23:22 Temp 98.3 97.9 98.3 97.9 Pulse 75 81 Resp 18 20 18 B/P (MAP) 109/58 (75) 125/59 (81) Pulse Ox 100 100 99 O2 Delivery Nasal Cannula Nasal Cannula Nasal Cannula Nasal Cannula O2 Flow Rate 2.5 2.5 2.5 2.5 07/03/20 07/03/20 07/03/20 07/03/20 00:13 03:05 07:24 07:35 Temp 98.1 97.9 98.1 97.9 Pulse 70 71 Resp 20 16 16 B/P (MAP) 126/57 (80) 119/68 (85) Pulse Ox 99 100 98 O2 Delivery Nasal Cannula Nasal Cannula Nasal Cannula Nasal Cannula O2 Flow Rate 2.5 2.5 2.5 1.5 07/03/20 07/03/20 07/03/20 07/03/20 08:31 08:31 10:48 14:28 Temp 98.0 98.6 98.0 98.6 Pulse 71 71 67 73 Resp 16 16 B/P (MAP) 119/68 119/68 109/77 (88) 117/50 (72) Pulse Ox 97 96 O2 Delivery Nasal Cannula Nasal Cannula O2 Flow Rate 2.5 2.5 Intake and Output 07/02/20 07/02/20 07/03/20 15:00 23:00 07:00 Intake Total 1900 ml 0 ml Output Total 1575 ml Balance 325 ml 0 ml TINY CHURCH MD Jul 03, 2020 14:53
[2020-07-03 19:00] VITALS: BP 127/59
[2020-07-03] MEDS: CYCLOBENZAPRINE 10 MG TABLET. PO PRN (21:09)
[2020-07-03] MEDS: HYDROcodone/APAP 7.5/325MG 1 TAB TABLET PO PRN (21:10)
[2020-07-03] MEDS: ATORVASTATIN CALCIUM 10 MG TABLET. PO SCH (21:10)
[2020-07-03] MEDS: INSULIN GLARGINE SYRINGE. SQ SCH (21:14)
[2020-07-03 22:55] VITALS: BP 110/52
[2020-07-04 02:59] VITALS: BP 130/57
[2020-07-04 07:00] VITALS: BP_SYST 125; BP_SYST 147; BP_DIAS 65; BP_DIAS 78
[2020-07-04] MEDS: INSULIN LISPRO 300 UNITS/3 ML VIAL. SQ SCH (08:00)
[2020-07-04] MEDS: POTASSIUM CHLORIDE 20 MEQ TABLET.ER. PO SCH (08:33)
[2020-07-04] MEDS: FUROSEMIDE 40 MG/4 ML VIAL. IVP SCH (08:33)
[2020-07-04] MEDS: ASPIRIN ENTERIC COATED 325 MG TABLET.DR. PO SCH (08:33)
[2020-07-04] MEDS: METOPROLOL SUCC 24HR ER 100 MG TAB.ER.24H. PO SCH (08:34)
[2020-07-04] MEDS: LISINOPRIL 10 MG TABLET PO SCH (08:34)
--- NOTE | 2020-07-04 09:58 | PDOC ---
HARVEY WONG ZURI 07/04/20 0958: CARDIO Progress Notes Date and Time Date of Service 07/04/20 Time of Evaluation 1000 Subjective Subjective: No Chest Pain, No shortness of breath, No Palpitations Vitals Vitals Vital Signs Date Time Temp Pulse Resp B/P (MAP) Pulse Ox O2 Delivery O2 Flow Rate FiO2 07/04/20 08:34 93 147/78 07/04/20 07:34 Nasal Cannula 2.5 07/04/20 07:00 97.5 16 98 97.5 Weight Weight [ ] Input and Output Intake and Output Intake and Output 07/04/20 07:00 Intake Total 3140 ml Output Total 2350 ml Balance 790 ml Intake Oral 3140 ml Output Urine Total 2350 ml Physical Exam HEENT: Neck Supple W Full Motion Chest: Symmetric LUNGS: Other (diminshed bases) Heart: RRR Abdomen: Soft N/T, Other (obese ) Extremities: Other (1+ bilateral LE edema ) Neurology: alert, oriented, follow commands Assessment Assessment 1. AFIB RVR: newly diagnosed, presently back in sinus rhythm. Continue ASA. 2. HTN urgency: Much better controlled since admission. Continue current medical regimen. 3. Acute on chronic diastolic CHF, clinically compensated following diuresis. 2D echo showed LVEF 60-65%. 4. Morbid obesity with likely LAURA 5. DM2: Per IM 6. HLP: statins Recommendations Continue metoprolol for rate control ASA for stroke prophylaxis for now Outpatient event monitor arranged to guide antiarrhythmic and anticoagulation therapy. Outpatient ischemic evaluation as arranged Follow up in our office with Dr. Farah as scheduled Justicifation of Admission Dx: Justifications for Admission: Justification of Admission Dx: Yes Comments: AFIB with RVR Acute on chronic diastolic CHF TINY FARAH MD 07/04/20 1602: CARDIO Progress Notes Assessment Assessment Patient seen and examined. Agree with TONSORIAL ARTIST assessment and plan. PAF, presently maintaining sinus rhythm. Acute on chronic diastolic heart failure better compensated. 2D echo showed LVEF 60 to 65%. Blood pressure better controlled since admission. Plan event monitor and ischemic evaluation as an outpatient. HARVEY WONG APRN Jul 04, 2020 09:58 TINY FARAH MD Jul 04, 2020 16:02
[2020-07-04 11:00] VITALS: BP 142/55
--- NOTE | 2020-07-04 11:32 | NUR ---
SS following up with discharge planning. SS reviewed pt chart and discussed with pt RN. Pt is currently requiring oxygen. Pt has home oxygen at home. Discharge order for home with self care on the chart. SS was asked to run benefits for outpatient sleep study. SS contacted [facility] and was notified that for in network providers pt is covered at 80% for sleep study with $25 co-pay and no pre-certification needed. [facility] faxed SS copy of pt's benefits. provided copy to pt. Pt reported that he would call customer services and get a list of in network providers and would schedule an appointment for sleep study. Pt's RN notified.
--- NOTE | 2020-07-04 11:55 | NUR ---
Discharge Note: YVAN PAT [employer]APER Discharge instructions and discharge home medications reviewed with Patient and a copy given. All questions have been answered and understanding verbalized. All belongings taken with patient upon discharge. Patient given information on outpatient sleep study and follow up appointments. The following instructions and handouts were given: Heart failure, Fluid restriction, Atrial Fibrillation Discontinued lines and drains: Peripheral IV intact. Patient discharged to Home or Self Care with Self via Wheelchair
--- NOTE | 2020-07-04 12:13 | PDOC ---
PULMONARY PROGRESS NOTES DATE: 07/04/20 TIME: 12:12 Subjective Patient is planning to discharge today, remains on nasal cannula oxygen Denies any increased shortness of breath or cough Vitals Vital Signs Date Time Temp Pulse Resp B/P (MAP) Pulse Ox O2 Delivery O2 Flow Rate FiO2 07/04/20 11:00 98.2 68 16 142/55 (84) 90 Room Air 98.2 07/04/20 07:34 2.5 ROS: No Nausea, No Chest Pain, No Abdominal Pain, No Increase Cough General: Alert, Oriented X4 HEENT: Other (nc at perrl ) Lungs: Clear Cardiovascular: S1, S2 Abdomen: Soft, Non-tender, Other (obese) Neuro Exam: Alert Extremities: Other (edema chronic changes) Skin: Warm Labs Laboratory Tests Test 07/03/20 06:30 Sodium Level 138 mmol/L (136-145) Potassium Level 3.7 mmol/L (3.5-5.1) Chloride Level 97 mmol/L (98-107) Carbon Dioxide Level 36 mmol/L (21-32) Anion Gap 5 (6-14) Blood Urea Nitrogen 21 mg/dL (8-26) Creatinine 1.0 mg/dL (0.7-1.3) Estimated GFR (Cockcroft-Gault) 78.2 Glucose Level 144 mg/dL (70-99) Calcium Level 8.4 mg/dL (8.5-10.1) Medications Active Scripts Medications Dose Route/Sig Max Daily Dose Days Date Category Aspirin 325 Mg Tablet 325 Mg PO DAILY 06/30/20 Reported Lasix (Furosemide) 40 Mg Tablet 1 Tab PO DAILY 06/24/19 Rx Topamax (Topiramate) 25 Mg Tablet 25 Mg PO BID 30 06/24/19 Rx Aspirin Ec (Aspirin) 81 Mg Tablet.dr 81 Mg PO DAILYWBKFT 06/24/19 Rx Lisinopril 10 Mg Tablet 10 Mg PO DAILY 30 06/24/19 Rx Toprol XL (Metoprolol Succinate) 50 Mg Tab.er.24h 50 Mg PO DAILY 30 06/24/19 Rx Atorvastatin Calcium 10 Mg Tablet 10 Mg PO QHS 30 06/24/19 Rx Proair Hfa (Albuterol Sulfate) 8.5 Gm Hfa.aer.ad 2.5 Mg NEB PRN Q4HRS PRN 30 06/24/19 Rx Novolog (Insulin Aspart) 100 Unit/1 Ml Vial 50 Unit SQ TIDWMEALHC 06/19/19 Reported Tresiba Flextouch U-200 (Insulin Degludec) 200 Unit/1 Ml Insuln.pen 160 Unit SQ DAILY 06/19/19 Reported Impression . IMPRESSION: 1. Acute on chronic systolic heart failure. 2. COVID-19 infection 4 months ago. 3. Hypertensive urgency. 4. Paroxysmal atrial fibrillation. 5. Morbid obesity. 6. Obstructive sleep apnea. 7. Chronic obstructive pulmonary disease with an asthma component. Plan . PLAN: Continue supplemental oxygen as needed Follow cardiology recommendations, continue diuresis and monitor electrolytes Planned for outpatient polysomnogram DVT/GI prophylaxis okay to discharge home from our standpoint today Discussed with RAMANDEEP CHANEY MD Jul 04, 2020 12:13
--- NOTE | 2020-07-04 20:19 | DS ---
DATE OF DISCHARGE: 07/04/2020 PRIMARY DIAGNOSIS: Acute congestive heart failure. ADDITIONAL DIAGNOSES: 1. Atrial fibrillation with a rapid ventricular response. 2. Shortness of breath. 3. Likely obstructive sleep apnea with outpatient workup to ensue after discharge. 4. Morbid obesity. 5. Diabetes. CHIEF COMPLAINT AND HISTORY OF PRESENT ILLNESS: This 54-year-old white male was admitted through the Emergency Room with shortness of breath, AFib with an RVR and findings of heart failure. SUMMARY OF STAY: The patient was admitted, rate was controlled and he spontaneously converted back to normal sinus rhythm. He diuresed well throughout the stay with decreased edema, but still had edema present and his shortness of breath was back to his baseline and it was felt that he could be dismissed with close outpatient followup and sleep study to ensue after discharge. DISPOSITION: The patient is discharged to home. DIET: Low sodium diet. ACTIVITY: As tolerated. FOLLOWUP: Office in 1-2 weeks. DISCHARGE MEDICATIONS: Listed on the med rec and have been addressed. MINA SIMEON MD DR: RACHEL/best JOB#: [id number] / [id number]
== END 2020-07-04 12:00 | disposition home or self-care (01) | DRG 291 ==
LOC: ER 12:16 → ED HOLD 17:34 → 2 NORTH 20:28
PROVIDERS: ADMIT Family Medicine; ATTEND Family Medicine
DX: I11.0 Hypertensive heart disease with heart failure (principal); J96.22 Acute and chronic respiratory failure with hypercapnia; Z68.44 Body mass index [BMI] 60.0-69.9, adult; I50.43 Acute on chronic combined systolic (congestive) and diastolic (congestive) heart failure; E11.9 Type 2 diabetes mellitus without complications; E66.01 Morbid (severe) obesity due to excess calories; E78.5 Hyperlipidemia, unspecified; I16.0 Hypertensive urgency; I48.0 Paroxysmal atrial fibrillation; J44.9 Chronic obstructive pulmonary disease, unspecified; G89.29 Other chronic pain; K21.9 Gastro-esophageal reflux disease without esophagitis; G47.33 Obstructive sleep apnea (adult) (pediatric); M19.90 Unspecified osteoarthritis, unspecified site; Z87.09 Personal history of other diseases of the respiratory system; Z87.891 Personal history of nicotine dependence; Z88.0 Allergy status to penicillin; Z88.8 Allergy status to other drugs, medicaments and biological substances; Z86.16 Personal history of COVID-19
CPT/HCPCS: 36415; 71045; 80048; 80053; 81001; 83690; 83735; 83880; 84443; 84484; 85025; 93005; 93306; 94760; 96374; 96375; J1815; J1940; J3490; Q9956; 99285-25; G0378

== ENCOUNTER 2020-12-10 15:36 | Inpatient (IN) | payer OTHER ==
[~2020-12-10] VITALS: Ht 175.3 cm; Wt 195.3 kg
[~2020-12-10 15:36] MED LIST changes: +ASPI325T8 PO; +LISI10TA16 PO; -LISI10TA2 PO; -MECL12.574 PO; +MECL12.582 PO
--- NOTE | 2020-12-10 17:32 | PHYS DOC ---
Past Medical History Past Medical History: CHF, Diabetes-Type II, Hypertension Additional Past Medical Histor: Chronic back pain (NASIR REDDING DO) Past Surgical History: Tonsillectomy (NASIR REDDING DO) Smoking Status: Former Smoker Alcohol Use: Rarely Drug Use: None (NASIR REDDING DO) General Adult EDM: Chief Complaint: LOWER EXTREMITY SWELLING HPI: HPI: Patient is a 55 year old male who present to ER for evaluation left knee pain started 2 days ago when he was walking. Patient fell like he blew out of his left knee. Patient then saw him in pain and swelling on the back of his left leg area., He complains of pain whenever he walks. Patient also said he has been retaining fluid, both his legs and the belly has been getting more swollen. Patient has history of CHF, he is on 1-1/2 L oxygen at home. Patient is also on Lasix at home. Patient is a former smoker. Patient denies any chest pain. He is only having trouble breathing when he have to walk for long distance. Patient denies any cough or fever. Patient says yesterday he had a bowel movement and it was hard, no recent trace of blood in his stool. Patient denied rectal bleeding at this time. Patient denied taking any blood thinner. (NASIR REDDING DO) Review of Systems: Review of Systems: Constitutional: Denies fever or chills. [] Eyes: Denies change in visual acuity. [] HENT: Denies nasal congestion or sore throat. [] Respiratory: Denies cough or shortness of breath. [] Cardiovascular: Denies chest pain or edema. [] GI: Denies abdominal pain, nausea, vomiting, bloody stools or diarrhea. Positive abdominal wall swelling. Positive for trace of blood in stool. : Denies dysuria. [] Musculoskeletal: Positive for left knee pain, left leg pain. Integument: Denies rash. [] Neurologic: Denies headache, focal weakness or sensory changes. [] Endocrine: Denies polyuria or polydipsia. [] Lymphatic: Denies swollen glands. [] Psychiatric: Denies depression or anxiety. [] (NASIR REDDING DO) Heart Score: C/O Chest Pain: N/A Risk Factors: Risk Factors: DM, Current or recent (<one month) smoker, HTN, HLP, family history of CAD, obesity. Risk Scores: Score 0 - 3: 2.5% MACE over next 6 weeks - Discharge Home Score 4 - 6: 20.3% MACE over next 6 weeks - Admit for Clinical Observation Score 7 - 10: 72.7% MACE over next 6 weeks - Early Invasive Strategies (NASIR REDDING DO) Allergies: Allergies: Allergies Coded Allergies Type Severity Reaction Last Updated Verified Penicillins Allergy Intermediate Rash 06/20/19 Yes guaifenesin Allergy Intermediate 06/20/19 Yes theophylline Allergy Intermediate 06/20/19 Yes (NASIR REDDING DO) Physical Exam: PE: Constitutional: Well developed, well nourished, no acute distress, non-toxic appearance. Morbidly obese. HENT: Normocephalic, atraumatic, bilateral external ears normal, oropharynx moist, no oral exudates, nose normal. [] Eyes: PERRLA, EOMI, conjunctiva normal, no discharge. [] Neck: Normal range of motion, no tenderness, supple, no stridor. [] Cardiovascular:Heart rate regular rhythm, no murmur [] Lungs & Thorax: Bilateral breath sounds clear to auscultation [] Abdomen: Bowel sounds normal, soft, no tenderness, no masses, no pulsatile masses. [] Skin: Warm, dry, no erythema, no rash. [] Back: No tenderness, no CVA tenderness. [] Extremities: left knee is tender to palpation with mild swelling, knee joint is stable, bilateral legs are swollen with skin appeared dark and thicken, no oozing drainage. Neurologic: Alert and oriented X 3, normal motor function, normal sensory function, no focal deficits noted. [] Psychologic: Affect normal, judgement normal, mood normal. [] (NASIR REDDING DO) Current Patient Data: Labs: Laboratory Tests Test 12/10/20 17:25 White Blood Count 10.9 x10^3/uL Red Blood Count 4.06 x10^6/uL Hemoglobin 11.1 g/dL Hematocrit 34.9 % Mean Corpuscular Volume 86 fL Mean Corpuscular Hemoglobin 27 pg Mean Corpuscular Hemoglobin Concent 32 g/dL Red Cell Distribution Width 15.5 % Platelet Count 271 x10^3/uL Neutrophils (%) (Auto) 80 % Lymphocytes (%) (Auto) 11 % Monocytes (%) (Auto) 9 % Eosinophils (%) (Auto) 1 % Basophils (%) (Auto) 1 % Neutrophils # (Auto) 8.6 x10^3/uL Lymphocytes # (Auto) 1.2 x10^3/uL Monocytes # (Auto) 0.9 x10^3/uL Eosinophils # (Auto) 0.1 x10^3/uL Basophils # (Auto) 0.1 x10^3/uL Current Medications Medications (Trade) Dose Ordered Sig/Jeremy Route PRN Reason Start Time Stop Time Status Last Admin Dose Admin Furosemide (Lasix) 60 mg 1X ONCE IVP 12/10/20 17:45 12/10/20 17:46 Vital Signs: Vital Signs Date Time Temp Pulse Resp B/P (MAP) Pulse Ox O2 Delivery O2 Flow Rate FiO2 12/10/20 15:40 98.9 104 18 152/54 (86) 96 Nasal Cannula 3.0 98.9 (NASIR REDDING DO) EKG: EKG: [] (NASIR REDDING DO) Radiology/Procedures: Radiology/Procedures: [] (NASIR REDDING DO) Radiology/Procedures: [facility] [address] [place] [address] IMAGING REPORT Signed PATIENT: LORENZO PAT ACCOUNT: [id number] : 1965 LOCATION: ER AGE: 55 SEX: M EXAM STATUS: REG ER ORD. PHYSICIAN: NASIR REDDING DO REASON: left leg pain and swelliing PROCEDURE: VENOUS LOWER EXTREMITY LEFT Left Leg Venous Doppler Ultrasound, 12/10/2020 7:03 PM Indication: Left leg pain and swelling Comparison: None available Procedure: Real-time grayscale, color flow color duplex Doppler and spectral analysis are obtained with and without compression in the area of the common femoral vein, superficial femoral vein - femoral vein junction, main femoral vein (superficial femoral vein) and popliteal vein. Veins of the proximal calf are also imaged. Findings: There is normal duplex flow, color flow and compressibility of all visualized vein segments. No evidence of deep venous thrombus is present. Impression: Negative venous Doppler of left lower extremity Electronically signed by: Janice Alexandre MD (12/10/2020 7:57 PM) [facility] DICTATED and SIGNED BY: JANICE ALEXANDRE MD DATE: 12/10/20 [id number] (YVROSE HUNT MD) Course & Med Decision Making: Course & Med Decision Making Pertinent Labs and Imaging studies reviewed. (See chart for details) Patient is a 55-year-old male who present to ER due to left knee pain, left calf pain. Patient also complained of retaining fluid over the last month. Patient has history of CHF, he is on Lasix daily. Patient also is morbidly obese. He suspects that he sprained his left knee few days ago and having pain with ambulation since. Patient care was endorsed to the incoming physician at shift change Dr. YVROSE HUNT at 6 PM PENDING LABS, XRAY OF LEFT KNEE, VENOUS DOPPLER OF LLE. (NASIR REDDING DO) Course & Med Decision Making Accepted care at shift change, work-up of knee unremarkable, discussed patient likely soft tissue injury. Patient also complaining of difficulty breathing and sitting in his car he had a steering well secondary to his abdominal swelling. Patient has very edematous anasarca abdomen. He states he has been doubling his Lasix for the past 2 days not improvement. Discussed with patient's primary care provider Dr. Hernandez, that patient can be admitted for IV Lasix and I/O. (YVROSE HUNT MD) Dragon Disclaimer: Dragon Disclaimer: This electronic medical record was generated, in whole or in part, using a voice recognition dictation system. (NASIR REDDING DO) Departure Departure Impression: Primary Impression: Left knee sprain Additional Impression: Peripheral edema Condition: STABLE Referrals: MINA HERNANDEZ MD (PCP) NASIR REDDING DO Dec 10, 2020 17:32 YVROSE HUNT MD Dec 10, 2020 20:04
[2020-12-10 17:33] LABS: BASO # 0.1 x10^3/uL (0.0-0.2); BASO % 1 % (0-3); EOS # 0.1 x10^3/uL (0.0-0.7); EOS % 1 % (0-3); HEMATOCRIT 34.9 % (39.0-53.0); HEMOGLOBIN 11.1 g/dL (13.0-17.5); LYMPH # 1.2 x10^3/uL (1.0-4.8); LYMPH % 11 % (24-48); MEAN CORPUSCULAR HEMOGLOBIN 27 pg (25-35); MEAN CORPUSCULAR HGB CONC 32 g/dL (31-37); MEAN CORPUSCULAR VOLUME 86 fL (79-100); MONO # 0.9 x10^3/uL (0.0-1.1); MONO % 9 % (0-9); NEUT # 8.6 x10^3/uL (1.8-7.7); NEUT % 80 % (31-73); PLATELET COUNT 271 x10^3/uL (140-400); RED BLOOD COUNT 4.06 x10^6/uL (4.30-5.70); RED CELL DISTRIBUTION WIDTH 15.5 % (11.5-14.5); WHITE BLOOD COUNT 10.9 x10^3/uL (4.0-11.0)
[2020-12-10 17:44] LABS: CALCIUM 7.9 mg/dL (8.5-10.1); GFR 77.9; POTASSIUM 4.3 mmol/L (3.5-5.1)
[2020-12-10] MEDS ORDERED: FUROSEMIDE 40 MG/4 ML VIAL. IVP ONE (17:45)
[2020-12-10 17:50] LABS: ALBUMIN 3.4 g/dL (3.4-5.0); TOTAL BILIRUBIN 0.5 mg/dL (0.2-1.0); TOTAL PROTEIN 6.7 g/dL (6.4-8.2)
--- NOTE | 2020-12-10 18:22 | RAD ---
XR KNEE _3 VIEWS_LT dated 12/10/2020 6:00 PM. History: Reason: left knee injured / Spl. Instructions: / History: Comparison: None. Findings: There is no fracture or dislocation. The bone density is normal. No abnormal periosteal reaction is s een. Joint spaces are maintained. There is some soft tissue swelling. Impression: 1. No acute bony abnormality evident. Electronically signed by: Elgin Gillis Jr., MD (12/10/2020 6:20 PM) [facility]AL[facility]
--- NOTE | 2020-12-10 18:23 | RAD ---
INDICATION: Reason: soa / Spl. Instructions: / History: COMPARISON: 07/31/2020 FINDINGS: Single view of chest obtained. Enlarged cardiac mediastinal silhouette. Interstitial and groundglass opacities bilaterally. IMPRESSION: * Mild interstitial and groundglass opacities bilaterally which could be from mild edema or intersti tial infiltrate. Electronically signed by: Dhruv Trevizo MD (12/10/2020 6:21 PM) [id number]
--- NOTE | 2020-12-10 19:59 | RAD ---
Left Leg Venous Doppler Ultrasound, 12/10/2020 7:03 PM Indication: Left leg pain and swelling Comparison: None available Procedure: Real-time grayscale, color flow color duplex Doppler and spectral analysis are obtained w ith and without compression in the area of the common femoral vein, superficial femoral vein - femora l vein junction, main femoral vein (superficial femoral vein) and popliteal vein. Veins of the proxim al calf are also imaged. Findings: There is normal duplex flow, color flow and compressibility of all visualized vein segment s. No evidence of deep venous thrombus is present. Impression: Negative venous Doppler of left lower extremity Electronically signed by: Janice Alexandre MD (12/10/2020 7:57 PM) [facility]
[2020-12-10] MEDS ORDERED: ACETAMINOPHEN 325 MG TABLET. PO PRN (20:30)
[2020-12-10] MEDS ORDERED: ONDANSETRON PF 4 MG/2 ML VIAL. IV PRN (20:30)
[2020-12-10] MEDS ORDERED: fentaNYL PF VIAL 100 MCG/2 ML VIAL IV PRN (20:30)
[2020-12-10 22:36] VITALS: BP 127/82
[2020-12-11] MEDS ORDERED: INSULIN GLARGINE SYRINGE. SQ SCH (00:15)
[2020-12-11 03:50] VITALS: BP 165/95
[2020-12-11 05:08] LABS: BASO % 0 % (0-3); EOS # 0.1 x10^3/uL (0.0-0.7); EOS % 1 % (0-3); HEMATOCRIT 33.5 % (39.0-53.0); HEMOGLOBIN 10.9 g/dL (13.0-17.5); LYMPH # 1.6 x10^3/uL (1.0-4.8); LYMPH % 15 % (24-48); MEAN CORPUSCULAR HEMOGLOBIN 28 pg (25-35); MEAN CORPUSCULAR HGB CONC 33 g/dL (31-37); MEAN CORPUSCULAR VOLUME 86 fL (79-100); MONO # 1.1 x10^3/uL (0.0-1.1); MONO % 11 % (0-9); NEUT % 74 % (31-73); PLATELET COUNT 259 x10^3/uL (140-400); RED BLOOD COUNT 3.89 x10^6/uL (4.30-5.70); RED CELL DISTRIBUTION WIDTH 15.4 % (11.5-14.5); WHITE BLOOD COUNT 10.9 x10^3/uL (4.0-11.0)
[2020-12-11 05:20] LABS: ALBUMIN 3.4 g/dL (3.4-5.0); ALBUMIN/GLOBULIN RATIO 1.1 (1.0-1.7); CALCIUM 7.7 mg/dL (8.5-10.1); GFR 77.9; POTASSIUM 4.1 mmol/L (3.5-5.1); TOTAL BILIRUBIN 0.6 mg/dL (0.2-1.0); TOTAL PROTEIN 6.6 g/dL (6.4-8.2)
[2020-12-11 07:00] VITALS: BP 131/77
[2020-12-11] MEDS ORDERED: INSULIN LISPRO 300 UNITS/3 ML VIAL. SQ SCH (08:00)
[2020-12-11] MEDS: ASPIRIN 325 MG TABLET PO SCH (08:11)
[2020-12-11] MEDS: LISINOPRIL 10 MG TABLET PO SCH (08:14)
[2020-12-11] MEDS: METOPROLOL SUCC 24HR ER 50 MG TAB.ER.24H. PO SCH (08:14)
--- NOTE | 2020-12-11 08:22 | NUR ---
PT BLOOD SUGAR 132 THIS MORNING. PT STATES HE WOULD ONLY TAKE 30 UNITS FOR THAT BLOOD SUGAR WITH WHAT WAS ON THE BREAKFAST TRAY. 30 UNITS ADMINISTERED.
[2020-12-11] MEDS ORDERED: FUROSEMIDE 40 MG TABLET. PO SCH (09:00)
--- NOTE | 2020-12-11 09:19 | PDOC ---
Provider Note Date of Service: DATE: 12/11/20 TIME: 09:18 Provider Note dictated Justifications for Admission Other Justification PEYTON JUAREZ MD Dec 11, 2020 09:19
[2020-12-11] MEDS: ALBUTEROL SULFATE 2.5 MG/3 ML NEBU. NEB PRN (09:41)
[2020-12-11] MEDS ORDERED: ACETAMINOPHEN 500 MG TABLET PO PRN (09:45)
[2020-12-11] MEDS ORDERED: IBUPROFEN 400 MG TABLET. PO PRN (09:45)
[2020-12-11 11:18] VITALS: BP 129/75
[2020-12-11] MEDS: INSULIN LISPRO 300 UNITS/3 ML VIAL. SQ SCH ×2 (12:00→17:00)
[2020-12-11] MEDS: HYDROcodone/APAP 7.5/325MG 1 TAB TABLET PO PRN ×2 (12:35→17:44)
--- NOTE | 2020-12-11 12:55 | HP ---
ADMIT DATE: 12/10/2020 CHIEF COMPLAINT: Shortness of breath and left knee pain. HISTORY OF PRESENT ILLNESS: A ____-mg[place]-me[place] white male with history of insulin-dependent diabetes and morbid obesity. At least he has suspected sleep apnea, but he never has not been able to afford a sleep study. He came in with increasing shortness of breath, left knee pain for a few days without injury or known cause and increased swelling in his legs and lower abdomen. He had chest x-ray and left knee x-ray, both of which were normal and I give him IV Lasix x 1 dose and he had some diuresis and here for further evaluation. He is not sure when the last A1c was and does not see Dr. Hernandez regularly given his limited financial resources. MEDICATIONS: Takes high-dose Tresiba and Humalog, but no other notable p.o. meds. ALLERGIES: No known drug allergies. SOCIAL HISTORY: He is single, nonsmoker, nondrinker, unemployed to my knowledge. FAMILY HISTORY: Positive for obesity and sleep apnea. REVIEW OF SYSTEMS: No other complaints. OBJECTIVE: ENT: Edentulous, otherwise generally unremarkable. NECK: Revealed no carotid bruits, nodes or thyroid enlargement. LUNGS: Decreased breath sounds. No tachypnea or wheezes. CARDIOVASCULAR: Regular rate. Heart tones are distant. Rate is about 100. ABDOMEN: Morbidly obese with edema of the abdominal wall noted. EXTREMITIES: The left knee is tender diffusely, appears to be somewhat swollen and warmer compared to the right. He has 2+ pretibial edema of both lower legs. Pulses seem to be reasonably good. NEUROLOGIC: Physiologic. ASSESSMENT: Anasarca, likely secondary to undiagnosed and untreated sleep apnea. Could have undiagnosed thyroid disease as well. He also has diabetes, high-dose insulin, unknown ____ control. Left hip pain without any injury, possibly could be related to gout. PLAN: A1c, TSH, uric acid, IV Lasix for now. THERESA/JHONY/ANGEL DR: THERESA/best TID: [id number]
[2020-12-11] MEDS: FUROSEMIDE 40 MG/4 ML VIAL. IVP SCH ×2 (13:18→17:45)
[2020-12-11 15:22] VITALS: BP 142/67
[2020-12-11] MEDS: POTASSIUM CHLORIDE 10 MEQ TABLET.ER. PO SCH (17:44)
[2020-12-11] MEDS: ATORVASTATIN CALCIUM 10 MG TABLET. PO SCH (20:15)
[2020-12-11] MEDS: INSULIN GLARGINE SYRINGE. SQ SCH (20:16)
[2020-12-11 20:20] VITALS: BP 118/68
[2020-12-11 23:20] VITALS: BP 133/75
[2020-12-12 02:11] LABS: HEMOGLOBIN A1C 9.8 % (4.8-5.6)
[2020-12-12 03:25] VITALS: BP 135/71
[2020-12-12 07:00] VITALS: BP 127/73
[2020-12-12] MEDS: INSULIN LISPRO 300 UNITS/3 ML VIAL. SQ SCH ×3 (08:00→17:49)
[2020-12-12] MEDS: LISINOPRIL 10 MG TABLET PO SCH (09:12)
[2020-12-12] MEDS: POTASSIUM CHLORIDE 10 MEQ TABLET.ER. PO SCH ×2 (09:12→17:44)
[2020-12-12] MEDS: ASPIRIN 325 MG TABLET PO SCH (09:13)
[2020-12-12] MEDS: METOPROLOL SUCC 24HR ER 50 MG TAB.ER.24H. PO SCH (09:13)
[2020-12-12] MEDS: FUROSEMIDE 40 MG/4 ML VIAL. IVP SCH ×2 (09:14→14:17)
--- NOTE | 2020-12-12 10:55 | PDOC ---
PULMONARY PROGRESS NOTES DATE: 12/12/20 TIME: 10:55 Vitals Vital Signs Date Time Temp Pulse Resp B/P (MAP) Pulse Ox O2 Delivery O2 Flow Rate FiO2 12/12/20 09:13 102 127/73 12/12/20 08:00 Nasal Cannula 2.0 12/12/20 07:00 98.4 22 96 98.4 General: Alert, Oriented X4 HEENT: Other Lungs: Clear Cardiovascular: S1, S2 Abdomen: Soft, Non-tender, Other Extremities: Other Labs Laboratory Tests Test 12/10/20 17:25 12/10/20 23:18 12/11/20 04:30 12/11/20 05:15 White Blood Count 10.9 x10^3/uL (4.0-11.0) 10.9 x10^3/uL (4.0-11.0) Red Blood Count 4.06 x10^6/uL (4.30-5.70) 3.89 x10^6/uL (4.30-5.70) Hemoglobin 11.1 g/dL (13.0-17.5) 10.9 g/dL (13.0-17.5) Hematocrit 34.9 % (39.0-53.0) 33.5 % (39.0-53.0) Mean Corpuscular Volume 86 fL (79-100) 86 fL (79-100) Mean Corpuscular Hemoglobin 27 pg (25-35) 28 pg (25-35) Mean Corpuscular Hemoglobin Concent 32 g/dL (31-37) 33 g/dL (31-37) Red Cell Distribution Width 15.5 % (11.5-14.5) 15.4 % (11.5-14.5) Platelet Count 271 x10^3/uL (140-400) 259 x10^3/uL (140-400) Neutrophils (%) (Auto) 80 % (31-73) 74 % (31-73) Lymphocytes (%) (Auto) 11 % (24-48) 15 % (24-48) Monocytes (%) (Auto) 9 % (0-9) 11 % (0-9) Eosinophils (%) (Auto) 1 % (0-3) 1 % (0-3) Basophils (%) (Auto) 1 % (0-3) 0 % (0-3) Neutrophils # (Auto) 8.6 x10^3/uL (1.8-7.7) 8.0 x10^3/uL (1.8-7.7) Lymphocytes # (Auto) 1.2 x10^3/uL (1.0-4.8) 1.6 x10^3/uL (1.0-4.8) Monocytes # (Auto) 0.9 x10^3/uL (0.0-1.1) 1.1 x10^3/uL (0.0-1.1) Eosinophils # (Auto) 0.1 x10^3/uL (0.0-0.7) 0.1 x10^3/uL (0.0-0.7) Basophils # (Auto) 0.1 x10^3/uL (0.0-0.2) 0.0 x10^3/uL (0.0-0.2) Sodium Level 138 mmol/L (136-145) 139 mmol/L (136-145) Potassium Level 4.3 mmol/L (3.5-5.1) 4.1 mmol/L (3.5-5.1) Chloride Level 100 mmol/L (98-107) 97 mmol/L (98-107) Carbon Dioxide Level 36 mmol/L (21-32) 39 mmol/L (21-32) Anion Gap 2 (6-14) 3 (6-14) Blood Urea Nitrogen 17 mg/dL (8-26) 19 mg/dL (8-26) Creatinine 1.0 mg/dL (0.7-1.3) 1.0 mg/dL (0.7-1.3) Estimated GFR (Cockcroft-Gault) 77.9 77.9 BUN/Creatinine Ratio 17 (6-20) 19 (6-20) Glucose Level 300 mg/dL (70-99) 256 mg/dL (70-99) Calcium Level 7.9 mg/dL (8.5-10.1) 7.7 mg/dL (8.5-10.1) Total Bilirubin 0.5 mg/dL (0.2-1.0) 0.6 mg/dL (0.2-1.0) Aspartate Amino Transf (AST/SGOT) 17 U/L (15-37) 14 U/L (15-37) Alanine Aminotransferase (ALT/SGPT) 23 U/L (16-63) 26 U/L (16-63) Alkaline Phosphatase 97 U/L (46-116) 93 U/L (46-116) Troponin I Quantitative < 0.017 ng/mL (0.000-0.055) < 0.017 ng/mL (0.000-0.055) KN-Dly-O-Type Natriuretic Peptide 1102 pg/mL (0-124) Total Protein 6.7 g/dL (6.4-8.2) 6.6 g/dL (6.4-8.2) Albumin 3.4 g/dL (3.4-5.0) 3.4 g/dL (3.4-5.0) Albumin/Globulin Ratio 1.0 (1.0-1.7) 1.1 (1.0-1.7) Glucose (Fingerstick) 376 mg/dL (70-99) 223 mg/dL (70-99) Uric Acid 6.0 mg/dL (3.5-7.2) Thyroid Stimulating Hormone (TSH) 2.681 uIU/mL (0.358-3.74) Test 12/11/20 08:18 12/11/20 08:20 12/11/20 12:14 12/11/20 12:52 Glucose (Fingerstick) 132 mg/dL (70-99) 70 mg/dL (70-99) 63 mg/dL (70-99) Hemoglobin A1c 9.8 % (4.8-5.6) Test 12/11/20 17:12 12/11/20 19:50 12/12/20 08:15 Glucose (Fingerstick) 78 mg/dL (70-99) 175 mg/dL (70-99) 105 mg/dL (70-99) Laboratory Tests Test 12/11/20 12:14 12/11/20 12:52 12/11/20 17:12 12/11/20 19:50 Glucose (Fingerstick) 70 mg/dL (70-99) 63 mg/dL (70-99) 78 mg/dL (70-99) 175 mg/dL (70-99) Test 12/12/20 08:15 Glucose (Fingerstick) 105 mg/dL (70-99) Medications Active Scripts Medications Dose Route/Sig Max Daily Dose Days Date Category Aspirin 325 Mg Tablet 325 Mg PO DAILY 06/30/20 Reported Lasix (Furosemide) 40 Mg Tablet 1 Tab PO DAILY 30 06/24/19 Rx Lisinopril 10 Mg Tablet 10 Mg PO DAILY 30 06/24/19 Rx Toprol XL (Metoprolol Succinate) 50 Mg Tab.er.24h 50 Mg PO DAILY 30 06/24/19 Rx Atorvastatin Calcium 10 Mg Tablet 10 Mg PO QHS 30 06/24/19 Rx Proair Hfa (Albuterol Sulfate) 8.5 Gm Hfa.aer.ad 2.5 Mg NEB PRN Q4HRS PRN 30 06/24/19 Rx Novolog (Insulin Aspart) 100 Unit/1 Ml Vial 50 Unit SQ TIDWMEALHC 06/19/19 Reported Tresiba Flextouch U-200 (Insulin Degludec) 200 Unit/1 Ml Insuln.pen 160 Unit SQ DAILY 06/19/19 Reported Impression . Full note dictated Acute on chronic cor pulmonale Obstructive sleep apnea Morbid obesity Patient unable to afford polysomnogram Continue to diurese Continue oxygen supplementation RAMANDEEP VO MD Dec 12, 2020 10:55
[2020-12-12 11:00] VITALS: BP 112/55
--- NOTE | 2020-12-12 12:20 | NUR ---
SS following for discharge planning. SS reviewed pt chart and discussed with pt RN. Pt is from home with spouse and is currently requiring oxygen at two liters nasal canula. Pt on IV Lasix. Pulmonology and Cardiology consulted. SS will continue to follow for discharge planning.
--- NOTE | 2020-12-12 13:05 | PN ---
DATE: 12/12/2020 LOCATION: He is in room 261. SUBJECTIVE: This 55-year-old white male remains hospitalized with anasarca. Best guess this point in time is a Pickwickian type syndrome with severe sleep apnea and pulmonary hypertension. I am going to ask Cardiology and Pulmonary for opinions prior to considering discharge. He states that his brother does have a CPAP machine. He is not using and has told him he can have it and I feel like this is probably better than nothing as he cannot afford to do what we want to do a sleep study and machine-stokes as an outpatient. OBJECTIVE: VITAL SIGNS: Stable. He is afebrile. GENERAL: He is awake and alert. CHEST: Reveals distant breath sounds, but clear. HEART: Regular. ABDOMEN: Obese, benign. There is anasarca, lower abdomen as well as throughout both lower extremities. NEUROLOGIC: He is intact. IMPRESSION: Anasarca, likely is that mentioned above. Thyroid testing as well as renal function is normal. PLAN: Cardiology and Pulmonary for completeness sake. Continue diuresis. We will have him try his brother's CPAP at discharge as noted above. RACHEL/SONYA/PITER DR: RACHEL/best TID: [id number]
--- NOTE | 2020-12-12 13:57 | PDOC2 ---
HARVEY WONG [employer] HATCH[employer] MAN 12/12/20 1357: CARDIAC CONSULT DATE OF CONSULT Date of Consult DATE: 12/12/20 TIME: 13:50 REASON FOR CONSULT Reason for Consult: lizzeth REFERRING PHYSICIAN Referring Physician: Dr. Hernandez SOURCE Source: Chart review, Patient HISTORY OF PRESENT ILLNESS HISTORY OF PRESENT ILLNESS This is a 55 yo male who presented secondary to left knee pain and worsening lower extremity edema. Patient reports having lower extremity edema, left > right for the last months. Also noted some fluid retention in his abdomen. Over the last couple of days, developed pain in his left calf. Pain radiated up his left leg. Yesterday, had significant pain in his left knee so he came to the ED for further evaluation and treatment. No chest pain, palpitations, dizziness, diaphoresis, or nausea/vomiting. PAST MEDICAL HISTORY Past Medical History Cardiovascular: CHF, HTN, Hyperlipidemia, Other (cardiiomyopathy), AFIB Pulmonary: COPD, Pneumonia, Other (LAURA; covid-19) CENTRAL NERVOUS SYSTEM: Other (tremors) GI: GERD Musculoskeletal: low back pain, Osteoarthritis Endocrine: Diabetes (2) PAST SURGICAL HISTORY Past Surgical History: Tonsillectomy FAMILY HISTORY Family History: Other (noncontributory ) SOCIAL HISTORY Social History Smoke: Quit ALCOHOL: none Drugs: None Lives: Alone CURRENT MEDICATIONS CURRENT MEDICATIONS Current Medications Medications (Trade) Dose Ordered Sig/Jeremy Route PRN Reason Start Time Stop Time Status Last Admin Dose Admin Atorvastatin Calcium (Lipitor) 10 mg QHS PO 12/11/20 21:00 12/11/20 20:15 Potassium Chloride (Klor-Con) 10 meq BIDAFTMEAL PO 12/11/20 18:00 12/12/20 09:12 Insulin Glargine (Lantus Syringe) 160 unit QHS SQ 12/11/20 21:00 12/11/20 20:16 ALLERGIES ALLERGIES: Coded Allergies: Penicillins (Verified Allergy, Intermediate, Rash, 06/20/19) guaifenesin (Verified Allergy, Intermediate, 06/20/19) theophylline (Verified Allergy, Intermediate, 06/20/19) ROS Review of System 14 point ROS conducted with pertinent positives noted above in hPI PHYSICAL EXAM PHYSICAL EXAM General: Alert, Oriented X3, Cooperative, No acute distress HEENT: Atraumatic, Mucous membr. moist/pink Lungs: Other (diminished) Heart: IRRR; tele AFIB. rate controlled), Other (distant heart sounds) Abdomen: Other (Obese) Extremities: No cyanosis, Other (LE edema, chronic venous stasis changes of bilateral LE ) Skin: warm, dry Neuro: Normal speech, Sensation intact Psych/Mental Status: Mental status NL, Mood NL MUSCULOSKELETAL: Osteoarthritic changes both hands VITALS/I&O VITALS/I&O: Vital Signs Date Time Temp Pulse Resp B/P (MAP) Pulse Ox O2 Delivery O2 Flow Rate FiO2 12/12/20 11:00 98.4 93 22 112/55 (74) 96 Nasal Cannula 2.0 98.4 I & O 12/11/20 12/11/20 12/12/20 15:00 23:00 07:00 Intake Total 725 ml 260 ml 200 ml Output Total 650 ml Balance 725 ml 260 ml -450 ml LABS Lab: Laboratory Tests Test 12/11/20 17:12 12/11/20 19:50 12/12/20 08:15 12/12/20 12:19 Glucose (Fingerstick) 78 mg/dL (70-99) 175 mg/dL (70-99) H 105 mg/dL (70-99) H 151 mg/dL (70-99) H ECHOCARDIOGRAM ECHOCARDIOGRAM <Conclusion> Technically difficult study. Left ventricle systolic function is mildly diminished. The Ejection Fraction is 45%. There is normal LV segmental wall motion. Trace mitral regurgitation. Mild tricuspid regurgitation. The PA pressure was estimated at 33 mmHg. There is no evidence of significant pericardial effusion. DATE: 06/21/19 1234 <Conclusion> Technically difficult study. Optison echo contrast used. The left ventricular systolic function appears normal. Estimated ejection fraction 60-65%. There is normal LV segmental wall motion. Mild mitral regurgitation. Mild tricuspid regurgitation. Estimated PAP 47 mmHg. There appears to be no evidence of significant pericardial effusion. DATE: 07/01/20 [id number] 0 ASSESSMENT/PLAN ASSESSMENT/PLAN 1. Acute on chronic diastolic CHF; Echo 07/07 with LVEF 60-65%. 2. PAFIB; presently AFIB. rate mostly controlled. Outpatient event arranged and mailed out earlier this year, but patient cannot recall wearing. No monitor results noted in clinic records. 3. LLE pain; US negative for DVT 4. Hypertension; controlled 5. Morbid obesity with likely LAURA 6. Diabetes, II. A1C 9 7. Hyperlipidemia; statin Recommendations Diuresis with monitoring or renal function Metoprolol for rate control ASA, statin therapy [id number] 3 correlating with a 3.2% risk of stroke per year. Consider addition of OAC. Outpatient ischemic evaluation Supportive care TINY CHURCH MD 12/12/20 2226: CARDIAC CONSULT ASSESSMENT/PLAN ASSESSMENT/PLAN Patient seen and examined. Agree with CAPTAIN OF GUARDS's assessment and plan. Continue diuresis for ac on chr diastolic HF AF rate controlled. Start xarelto for stroke prophylaxis Plan outpatient ischemic evaluation Thank you for your consultation HARVEY WONG APRN Dec 12, 2020 13:57 TINY CHURCH MD Dec 12, 2020 22:26
[2020-12-12] MEDS: ALBUTEROL SULFATE 2.5 MG/3 ML NEBU. NEB PRN (14:09)
[2020-12-12 15:00] VITALS: BP 123/65
[2020-12-12] MEDS ORDERED: METOPROLOL SUCC 24HR ER 25 MG TAB.ER.24H. PO ONE (17:15)
[2020-12-12 19:37] VITALS: BP 140/75
[2020-12-12] MEDS: ATORVASTATIN CALCIUM 10 MG TABLET. PO SCH (20:24)
[2020-12-12] MEDS: INSULIN GLARGINE SYRINGE. SQ SCH (20:26)
--- NOTE | 2020-12-12 20:59 | NUR ---
Pt had large bowel movement. Pt states he strained and it was hard. Red blood in stool. Will continue to monitor.
[2020-12-12 22:04] VITALS: BP 121/59
[2020-12-12] MEDS ORDERED: IBUPROFEN 400 MG TABLET. PO PRN (22:45)
[2020-12-12] MEDS: HYDROcodone/APAP 7.5/325MG 1 TAB TABLET PO PRN (23:17)
--- NOTE | 2020-12-13 01:55 | CONS ---
DATE OF CONSULTATION: 12/12/2020 ATTENDING PHYSICIAN: Victor Hugo Trevizo MD REASON FOR CONSULTATION: The patient is seen in pulmonary consultation at the request of Dr. Hernandez for shortness of air. HISTORY OF PRESENT ILLNESS: The patient is a 55-year-old that was concerned about his left lower extremity had some pain and swelling. He underwent venous Dopplers of the lower extremity, which revealed no evidence of DVT. The patient has been more short of breath, increasing lower extremity edema, increase in abdominal girth. I was asked to see him in consultation. He currently wears oxygen at 2 liters. He does have clinical symptoms and signs of obstructive sleep apnea, the patient states that he is unable to afford the copay for his sleep study. In fact, I have seen him in the past and recommended a sleep study. He has been vaccinated for COVID-19. He used to smoke, quit approximately 6-7 years ago. PAST MEDICAL HISTORY: Otherwise remarkable for morbid obesity, type 2 diabetes, obstructive sleep apnea, undiagnosed hypertension, hyperlipidemia, cardiomyopathy, AFib, gastroesophageal reflux, lower back pain. PAST SURGICAL HISTORY: Tonsillectomy. FAMILY HISTORY: Noncontributory. SOCIAL HISTORY: He quit tobacco six to seven years ago. REVIEW OF SYSTEMS: CONSTITUTIONAL: No fever or chills. EYES: No change in visual acuity. :HENT No nasal congestion or sore throat. PULMONARY: As indicated above. CARDIOVASCULAR: No chest pain, no pressure. GASTROINTESTINAL: No nausea, vomiting, diarrhea. GENITOURINARY: No dysuria or frequency. MUSCULOSKELETAL: No localized muscle aches or joint pains. SKIN: No new skin rashes. NEUROLOGIC: No headaches, diplopia or blurred vision. ALLERGIES: PENICILLIN, GUAIFENESIN AND THEOPHYLLINE. CURRENT MEDICATIONS: List was reviewed. PHYSICAL EXAMINATION: GENERAL: Morbid obese individual in no respiratory distress, currently on 2 liters. VITAL SIGNS: He has been afebrile since he has been here. HEENT: Eyes reveal sclerae, which are nonicteric. NECK: Jugular venous distention was not elevated. No lymphadenopathy. CHEST: Full expansion. LUNGS: Poor air flow with no wheezes. CARDIOVASCULAR: Regular rate and rhythm with S1, S2, no S3. ABDOMEN: Marked obesity. EXTREMITIES: Marked obesity with some edema. NEUROLOGIC: The patient was awake, alert, following commands. A detailed neuro exam was not performed. LABORATORY DATA: Reviewed. White count was noted. Hemoglobin and hematocrit were noted. Electrolytes were noted. Chest x-ray reviewed, no acute infiltrate, some ground glass opacities compatible with pulmonary edema. IMPRESSION: 1. Acute on chronic hypoxemic respiratory failure. 2. Acute on chronic cor pulmonale 3. Obstructive sleep apnea, patient is unable to afford the copay for polysomnogram. 4. Acute on chronic diastolic heart failure. 5. Paroxysmal AFib. 6. Hypertension. 7. Morbid obesity. 8. Type 2 Diabetes. 9. Hyperlipidemia. PLAN: 1. We will continue to diurese, repeat chest x-ray. 2. Cardiology input. 3. We will defer anticoagulation to PCP and cardiology. 4. Once the patient obtains insurance, we will proceed with polysomnogram 5. Continue oxygen supplementation for now. MELANIE/CURT/MARY DR: Leigh TID: [id number]
[2020-12-13 02:28] VITALS: BP 144/86
[2020-12-13 07:00] VITALS: BP 119/73
[2020-12-13] MEDS: INSULIN LISPRO 300 UNITS/3 ML VIAL. SQ SCH ×3 (08:00→17:00)
[2020-12-13 08:17] LABS: CALCIUM 7.7 mg/dL (8.5-10.1); CREATININE 1.2 mg/dL (0.7-1.3); GFR 63.1; POTASSIUM 3.7 mmol/L (3.5-5.1)
[2020-12-13] MEDS: ASPIRIN 325 MG TABLET PO SCH (09:11)
[2020-12-13] MEDS: POTASSIUM CHLORIDE 10 MEQ TABLET.ER. PO SCH ×2 (09:11→18:05)
[2020-12-13] MEDS: LISINOPRIL 10 MG TABLET PO SCH (09:12)
[2020-12-13] MEDS: METOPROLOL SUCC 24HR ER 25 MG TAB.ER.24H. PO SCH (09:12)
[2020-12-13] MEDS: metOLazone 2.5 MG TABLET PO SCH (09:12)
[2020-12-13] MEDS: FUROSEMIDE 40 MG/4 ML VIAL. IVP SCH ×2 (09:12→15:13)
--- NOTE | 2020-12-13 09:41 | PDOC ---
PULMONARY PROGRESS NOTES DATE: 12/13/20 TIME: 09:41 Subjective Pt. is on NC oxygen ongoing SOA no overnight events Vitals Vital Signs Date Time Temp Pulse Resp B/P (MAP) Pulse Ox O2 Delivery O2 Flow Rate FiO2 12/13/20 09:12 88 119/73 12/13/20 07:00 97.6 22 96 Nasal Cannula 2.0 97.6 ROS: No Nausea, No Chest Pain, No Abdominal Pain General: Alert, Oriented X4 HEENT: Other Lungs: Clear Cardiovascular: S1, S2 Abdomen: Soft, Non-tender, Other Extremities: Other Labs Laboratory Tests Test 12/11/20 12:14 12/11/20 12:52 12/11/20 17:12 12/11/20 19:50 Glucose (Fingerstick) 70 mg/dL (70-99) 63 mg/dL (70-99) 78 mg/dL (70-99) 175 mg/dL (70-99) Test 12/12/20 08:15 12/12/20 12:19 12/12/20 17:02 12/12/20 20:23 Glucose (Fingerstick) 105 mg/dL (70-99) 151 mg/dL (70-99) 185 mg/dL (70-99) 147 mg/dL (70-99) Test 12/12/20 23:52 12/13/20 00:36 12/13/20 02:42 12/13/20 03:07 Glucose (Fingerstick) 69 mg/dL (70-99) 111 mg/dL (70-99) 59 mg/dL (70-99) 98 mg/dL (70-99) Test 12/13/20 07:00 12/13/20 08:24 Sodium Level 141 mmol/L (136-145) Potassium Level 3.7 mmol/L (3.5-5.1) Chloride Level 98 mmol/L (98-107) Carbon Dioxide Level 37 mmol/L (21-32) Anion Gap 6 (6-14) Blood Urea Nitrogen 26 mg/dL (8-26) Creatinine 1.2 mg/dL (0.7-1.3) Estimated GFR (Cockcroft-Gault) 63.1 Glucose Level 57 mg/dL (70-99) Calcium Level 7.7 mg/dL (8.5-10.1) Glucose (Fingerstick) 96 mg/dL (70-99) Laboratory Tests Test 12/12/20 12:19 12/12/20 17:02 12/12/20 20:23 12/12/20 23:52 Glucose (Fingerstick) 151 mg/dL (70-99) 185 mg/dL (70-99) 147 mg/dL (70-99) 69 mg/dL (70-99) Test 12/13/20 00:36 12/13/20 02:42 12/13/20 03:07 12/13/20 07:00 Glucose (Fingerstick) 111 mg/dL (70-99) 59 mg/dL (70-99) 98 mg/dL (70-99) Sodium Level 141 mmol/L (136-145) Potassium Level 3.7 mmol/L (3.5-5.1) Chloride Level 98 mmol/L (98-107) Carbon Dioxide Level 37 mmol/L (21-32) Anion Gap 6 (6-14) Blood Urea Nitrogen 26 mg/dL (8-26) Creatinine 1.2 mg/dL (0.7-1.3) Estimated GFR (Cockcroft-Gault) 63.1 Glucose Level 57 mg/dL (70-99) Calcium Level 7.7 mg/dL (8.5-10.1) Test 12/13/20 08:24 Glucose (Fingerstick) 96 mg/dL (70-99) Medications Active Scripts Medications Dose Route/Sig Max Daily Dose Days Date Category Aspirin 325 Mg Tablet 325 Mg PO DAILY 06/30/20 Reported Lasix (Furosemide) 40 Mg Tablet 1 Tab PO DAILY 30 06/24/19 Rx Lisinopril 10 Mg Tablet 10 Mg PO DAILY 30 06/24/19 Rx Toprol XL (Metoprolol Succinate) 50 Mg Tab.er.24h 50 Mg PO DAILY 30 06/24/19 Rx Atorvastatin Calcium 10 Mg Tablet 10 Mg PO QHS 30 06/24/19 Rx Proair Hfa (Albuterol Sulfate) 8.5 Gm Hfa.aer.ad 2.5 Mg NEB PRN Q4HRS PRN 30 06/24/19 Rx Novolog (Insulin Aspart) 100 Unit/1 Ml Vial 50 Unit SQ TIDWMEALHC 06/19/19 Reported Tresiba Flextouch U-200 (Insulin Degludec) 200 Unit/1 Ml Insuln.pen 160 Unit SQ DAILY 06/19/19 Reported Impression . IMPRESSION: 1. Acute on chronic hypoxemic respiratory failure. 2. Acute on chronic cor pulmonale 3. Obstructive sleep apnea, patient is unable to afford the copay for polysomnogram. 4. Acute on chronic diastolic heart failure. 5. Paroxysmal AFib. 6. Hypertension. 7. Morbid obesity. 8. Type 2 Diabetes. 9. Hyperlipidemia. Plan . Updated 12/13 Continue supplemental oxygen NEBS Follow cardiology recs -- rohan, Echo 07/07 with LVEF 60-65%. Monitor renal function pt. will need outpatient polysomnogram DVT/GI PPX: Nicolas D/W RN 12/12 1. We will continue to rohan, repeat chest x-ray. 2. Cardiology input. 3. We will defer anticoagulation to PCP and cardiology. 4. Once the patient obtains insurance, we will proceed with polysomnogram 5. Continue oxygen supplementation for now. RAMANDEEP VO MD Dec 13, 2020 09:41
[2020-12-13 11:00] VITALS: BP 108/80
--- NOTE | 2020-12-13 11:13 | NUR ---
SS following up with discharge planning. SS reviewed pt chart and discussed with pt RN. Pt is currently requiring oxygen at two liters nasal canula. Pt has home oxygen. Pt on IV Lasix. Discharge plan is to home when medically ready. SS will continue to follow for discharge planning.
--- NOTE | 2020-12-13 12:26 | PDOC ---
ADEOLA [place] [facility] 12/13/20 1226: CARDIO Progress Notes Date and Time Date of Service 12/13/2020 Time of Evaluation 1200 Subjective Subjective: No Chest Pain, No shortness of breath, No Palpitations Vitals Vitals Vital Signs Date Time Temp Pulse Resp B/P (MAP) Pulse Ox O2 Delivery O2 Flow Rate FiO2 12/13/20 11:00 98.6 76 20 108/80 (89) 97 Nasal Cannula 2.0 98.6 Weight Weight [ ] Input and Output Intake and Output Intake and Output 12/13/20 07:00 Intake Total 1500 ml Output Total 1000 ml Balance 500 ml Intake Oral 1500 ml Output Urine Total 1000 ml # Bowel Movements 1 Laboratory Labs Laboratory Tests Test 12/12/20 12:19 12/12/20 17:02 12/12/20 20:23 12/12/20 23:52 Glucose (Fingerstick) 151 mg/dL (70-99) 185 mg/dL (70-99) 147 mg/dL (70-99) 69 mg/dL (70-99) Test 12/13/20 00:36 12/13/20 02:42 12/13/20 03:07 12/13/20 07:00 Glucose (Fingerstick) 111 mg/dL (70-99) 59 mg/dL (70-99) 98 mg/dL (70-99) Sodium Level 141 mmol/L (136-145) Potassium Level 3.7 mmol/L (3.5-5.1) Chloride Level 98 mmol/L (98-107) Carbon Dioxide Level 37 mmol/L (21-32) Anion Gap 6 (6-14) Blood Urea Nitrogen 26 mg/dL (8-26) Creatinine 1.2 mg/dL (0.7-1.3) Estimated GFR (Cockcroft-Gault) 63.1 Glucose Level 57 mg/dL (70-99) Calcium Level 7.7 mg/dL (8.5-10.1) Test 12/13/20 08:24 12/13/20 12:06 Glucose (Fingerstick) 96 mg/dL (70-99) 74 mg/dL (70-99) Physical Exam HEENT: Neck Supple W Full Motion Chest: Symmetric LUNGS: Other (diminished) Heart: irregularly irregular (AFIB) Abdomen: Soft N/T, Other (obese) Extremities: Other (3+ bilateral LE pitting edema) Neurology: alert, oriented, follow commands Assessment Assessment 1. Acute on chronic diastolic CHF: still fluid overloaded 2. PAFIB; presently AFIB. rate mostly controlled. Outpatient event arranged and mailed out earlier this year, but patient cannot recall wearing. No monitor results noted in clinic records. 3. LLE pain; US negative for DVT 4. Hypertension; controlled 5. Morbid obesity with likely LAURA/OHS 6. Diabetes, II. A1C 9 7. Hyperlipidemia; statin Recommendations 1. Lasix therapy. Zaroxylyn has been added. Standing wt. 2. Metoprolol for rate control 3. ASA, statin therapy 4. Currently on xarelto. Would recommend coumadin for stroke prophylaxis given his very high BMI 5. Outpatient ischemic evaluation. Will consider for outpt CVN if he does not convert to SR. 6. Supportive care. Consider for bariatric surgery referral 7. Using O2 at home, will need outpt LAURA workup. Justicifation of Admission Dx: Justifications for Admission: Justification of Admission Dx: Yes TINY CHURCH MD 12/13/202022: CARDIO Progress Notes Assessment Assessment Patient seen and examined. Agree with CHIEF SOLUTION ARCHITECT's assessment and plan. Continue diuresis for ac on chr diastolic HF AF rate controlled. Continue xarelto for stroke prophylaxis Plan outpatient ischemic evaluation ADEOLA JJ APRN Dec 13, 2020 12:26 TINY CHURCH MD Dec 13, 2020 20:23
[2020-12-13 15:00] VITALS: BP 101/56
[2020-12-13] MEDS ORDERED: RIVAROXABAN 10 MG TABLET. PO SCH (17:00)
[2020-12-13 19:59] VITALS: BP 133/64
[2020-12-13] MEDS: ALBUTEROL SULFATE 2.5 MG/3 ML NEBU. NEB PRN (20:21)
[2020-12-13] MEDS: HYDROcodone/APAP 7.5/325MG 1 TAB TABLET PO PRN (21:16)
[2020-12-13] MEDS: ATORVASTATIN CALCIUM 10 MG TABLET. PO SCH (21:16)
[2020-12-13] MEDS: INSULIN GLARGINE SYRINGE. SQ SCH (21:24)
[2020-12-13 22:27] VITALS: BP 106/72
[2020-12-14 02:18] VITALS: BP 143/85
--- NOTE | 2020-12-14 05:56 | PN ---
DATE: 12/13/2020 LOCATION: He is in room #261. SUBJECTIVE: This 55-year-old white male remains hospitalized with anasarca. He is sound asleep this morning and does not awaken to voice, but appears to be breathing comfortably. OBJECTIVE: VITAL SIGNS: Stable. He is afebrile. CHEST: Reveals distant breath sounds. HEART: Irregularly irregular. ABDOMEN: Benign. Anasarca persists. IMPRESSION: Anasarca, likely secondary to Pickwickian-type physiology. PLAN: Add Zaroxolyn for a day or two and observe. Help of Pulmonary and Cardiology appreciated. RACHEL/GUSTAVO/AMI DR: Juliet TID: [id number]
--- NOTE | 2020-12-14 06:06 | NUR ---
Patient complaining of blurry vision and that blood sugar running low and BS 67. Gave patient orange juice and a sherbert.
[2020-12-14 07:00] VITALS: BP 120/80
[2020-12-14 07:07] LABS: BLOOD UREA NITROGEN 26 mg/dL (8-26); CALCIUM 8.2 mg/dL (8.5-10.1); CARBON DIOXIDE 42 mmol/L (21-32); CHLORIDE 98 mmol/L (98-107); CREATININE 1.2 mg/dL (0.7-1.3); GFR 63.1; GLUCOSE 59 mg/dL (70-99); POTASSIUM 3.7 mmol/L (3.5-5.1); SODIUM 140 mmol/L (136-145)
[2020-12-14] MEDS ORDERED: POTA10TA12 PO (07:56)
[2020-12-14] MEDS ORDERED: RIVA10TA PO (07:56)
[2020-12-14] MEDS: INSULIN LISPRO 300 UNITS/3 ML VIAL. SQ SCH (08:00)
[2020-12-14] MEDS: LISINOPRIL 10 MG TABLET PO SCH (08:44)
[2020-12-14] MEDS: POTASSIUM CHLORIDE 10 MEQ TABLET.ER. PO SCH (08:44)
--- NOTE | 2020-12-14 08:44 | DS ---
DATE OF DISCHARGE: 12/14/2020 PRIMARY DIAGNOSIS: Anasarca. ADDITIONAL DIAGNOSES: Suspected sleep apnea, Pickwickian physiology, diabetes, insulin requiring, left knee and hip pain, chronic, atrial fibrillation. CHIEF COMPLAINT AND HISTORY OF PRESENT ILLNESS: This 55-year-old white male was admitted through the Emergency Room with shortness of breath, left knee pain, was found to be diffusely anasarcic, given IV Lasix and admitted for the same. SUMMARY OF STAY: The patient was admitted, diuresed with a 9-pound weight loss during the stay. Breathing was better by the time of discharge. He continued, however, to be edematous and one dose of metolazone was given during the stay with improvement. I am going to start him on this on a p.r.n. basis when things get worse and his breathing is affected. He was felt by Cardiology, Pulmonary need outpatient sleep evaluation, but he cannot get his insurance company to pay for the same. He was in atrial fibrillation and was started on metoprolol and Xarelto by Cardiology during the stay. He was felt stable with outpatient followup to follow. DISPOSITION: The patient is discharged home. Low sodium diet. Activity as tolerated. Office in 1-2 weeks. DISCHARGE MEDICATIONS: Listed on the med rec and have been addressed. NAOMI DR: Juliet TID: [id number]
[2020-12-14 08:45] VITALS: BP 120/80
[2020-12-14] MEDS: METOPROLOL SUCC 24HR ER 25 MG TAB.ER.24H. PO SCH (08:45)
[2020-12-14] MEDS: ASPIRIN 325 MG TABLET PO SCH (08:45)
[2020-12-14] MEDS: metOLazone 2.5 MG TABLET PO SCH (08:45)
[2020-12-14] MEDS: FUROSEMIDE 40 MG/4 ML VIAL. IVP SCH (08:46)
--- NOTE | 2020-12-14 09:52 | PDOC ---
PULMONARY PROGRESS NOTES DATE: 12/14/20 TIME: 09:52 Subjective Pt. is on [place] oxygen ongoing SOA no overnight events Vitals Vital Signs Date Time Temp Pulse Resp B/P (MAP) Pulse Ox O2 Delivery O2 Flow Rate FiO2 12/14/20 08:45 81 120/80 12/14/20 08:00 Nasal Cannula 2.0 12/14/20 07:00 97.6 16 97 97.6 ROS: No Nausea, No Chest Pain, No Abdominal Pain General: Alert, Oriented X4 HEENT: Other Lungs: Clear Cardiovascular: S1, S2 Abdomen: Soft, Non-tender, Other Extremities: Other Labs Laboratory Tests Test 12/12/20 12:19 12/12/20 17:02 12/12/20 20:23 12/12/20 23:52 Glucose (Fingerstick) 151 mg/dL (70-99) 185 mg/dL (70-99) 147 mg/dL (70-99) 69 mg/dL (70-99) Test 12/13/20 00:36 12/13/20 02:42 12/13/20 03:07 12/13/20 07:00 Glucose (Fingerstick) 111 mg/dL (70-99) 59 mg/dL (70-99) 98 mg/dL (70-99) Sodium Level 141 mmol/L (136-145) Potassium Level 3.7 mmol/L (3.5-5.1) Chloride Level 98 mmol/L (98-107) Carbon Dioxide Level 37 mmol/L (21-32) Anion Gap 6 (6-14) Blood Urea Nitrogen 26 mg/dL (8-26) Creatinine 1.2 mg/dL (0.7-1.3) Estimated GFR (Cockcroft-Gault) 63.1 Glucose Level 57 mg/dL (70-99) Calcium Level 7.7 mg/dL (8.5-10.1) Test 12/13/20 08:24 12/13/20 12:06 12/13/20 17:16 12/13/20 20:41 Glucose (Fingerstick) 96 mg/dL (70-99) 74 mg/dL (70-99) 114 mg/dL (70-99) 199 mg/dL (70-99) Test 12/14/20 05:45 12/14/20 06:01 12/14/20 08:03 Sodium Level 140 mmol/L (136-145) Potassium Level 3.7 mmol/L (3.5-5.1) Chloride Level 98 mmol/L (98-107) Carbon Dioxide Level 42 mmol/L (21-32) Anion Gap (6-14) Blood Urea Nitrogen 26 mg/dL (8-26) Creatinine 1.2 mg/dL (0.7-1.3) Estimated GFR (Cockcroft-Gault) 63.1 Glucose Level 59 mg/dL (70-99) Calcium Level 8.2 mg/dL (8.5-10.1) Glucose (Fingerstick) 67 mg/dL (70-99) 83 mg/dL (70-99) Laboratory Tests Test 12/13/20 12:06 12/13/20 17:16 12/13/20 20:41 12/14/20 05:45 Glucose (Fingerstick) 74 mg/dL (70-99) 114 mg/dL (70-99) 199 mg/dL (70-99) Sodium Level 140 mmol/L (136-145) Potassium Level 3.7 mmol/L (3.5-5.1) Chloride Level 98 mmol/L (98-107) Carbon Dioxide Level 42 mmol/L (21-32) Anion Gap (6-14) Blood Urea Nitrogen 26 mg/dL (8-26) Creatinine 1.2 mg/dL (0.7-1.3) Estimated GFR (Cockcroft-Gault) 63.1 Glucose Level 59 mg/dL (70-99) Calcium Level 8.2 mg/dL (8.5-10.1) Test 12/14/20 06:01 12/14/20 08:03 Glucose (Fingerstick) 67 mg/dL (70-99) 83 mg/dL (70-99) Medications Active Scripts Medications Dose Route/Sig Max Daily Dose Days Date Category Aspirin 325 Mg Tablet 325 Mg PO DAILY 06/30/20 Reported Lasix (Furosemide) 40 Mg Tablet 1 Tab PO DAILY 06/24/19 Rx Lisinopril 10 Mg Tablet 10 Mg PO DAILY 06/24/19 Rx Toprol XL (Metoprolol Succinate) 50 Mg Tab.er.24h 50 Mg PO DAILY 06/24/19 Rx Atorvastatin Calcium 10 Mg Tablet 10 Mg PO QHS 06/24/19 Rx Proair Hfa (Albuterol Sulfate) 8.5 Gm Hfa.aer.ad 2.5 Mg NEB PRN Q4HRS PRN 30 06/24/19 Rx Novolog (Insulin Aspart) 100 Unit/1 Ml Vial 50 Unit SQ TIDWMEALHC 06/19/19 Reported Tresiba Flextouch U-200 (Insulin Degludec) 200 Unit/1 Ml Insuln.pen 160 Unit SQ DAILY 06/19/19 Reported Impression . IMPRESSION: 1. Acute on chronic hypoxemic respiratory failure. 2. Acute on chronic cor pulmonale 3. Obstructive sleep apnea, patient is unable to afford the copay for polysomnogram. 4. Acute on chronic diastolic heart failure. 5. Paroxysmal AFib. 6. Hypertension. 7. Morbid obesity. 8. Type 2 Diabetes. 9. Hyperlipidemia. Plan . Updated 12/13 Continue supplemental oxygen NEBS Follow cardiology recs -- rohan, Echo 07/07 with LVEF 60-65%. Monitor renal function pt. will need outpatient polysomnogram DVT/GI PPX: Nicolas Hernandez/W RN 12/12 1. We will continue to rohan, repeat chest x-ray. 2. Cardiology input. 3. We will defer anticoagulation to PCP and cardiology. 4. Once the patient obtains insurance, we will proceed with polysomnogram 5. Continue oxygen supplementation for now. RAMANDEEP VO MD Dec 14, 2020 09:52
--- NOTE | 2020-12-14 10:20 | NUR ---
SS following up with discharge planning. SS reviewed pt chart and discussed with pt RN. Pt is currently requiring oxygen at two liters nasal canula. Pt has home oxygen. Discharge order on the chart for home with self care.
--- NOTE | 2020-12-14 10:40 | NUR ---
Discharge Note: [facility] Discharge instructions and discharge home medications reviewed with Patient and a copy given. All questions have been answered and understanding verbalized. Patient instructed to follow up with Dr. Hernandez and Cardiology. All belongings taken at discharge. The following instructions and handouts were given: Heart failure, Low sodium diet, Fluid restriction, Peripheral Edema, Xarelto, and Potassium supplement. Discontinued lines and drains: Peripheral IV intact. Patient discharged to Home or Self Care with Self via Wheelchair
== END 2020-12-14 10:45 | disposition home or self-care (01) | DRG 291 ==
LOC: ER 15:36 → 2 SOUTH 20:52 → OBSVTOIN 12-12 11:41
PROVIDERS: ADMIT Family Medicine; ATTEND Family Medicine
DX: I11.0 Hypertensive heart disease with heart failure (principal); J96.21 Acute and chronic respiratory failure with hypoxia; E66.2 Morbid (severe) obesity with alveolar hypoventilation; Z68.44 Body mass index [BMI] 60.0-69.9, adult; I50.33 Acute on chronic diastolic (congestive) heart failure; I42.9 Cardiomyopathy, unspecified; E11.9 Type 2 diabetes mellitus without complications; E78.5 Hyperlipidemia, unspecified; I27.20 Pulmonary hypertension, unspecified; M19.90 Unspecified osteoarthritis, unspecified site; I48.0 Paroxysmal atrial fibrillation; J44.9 Chronic obstructive pulmonary disease, unspecified; Z79.4 Long term (current) use of insulin; Z87.891 Personal history of nicotine dependence; G89.29 Other chronic pain; K21.9 Gastro-esophageal reflux disease without esophagitis; I27.81 Cor pulmonale (chronic); Z88.0 Allergy status to penicillin; Z88.8 Allergy status to other drugs, medicaments and biological substances; Z87.01 Personal history of pneumonia (recurrent)
CPT/HCPCS: 36415; 71045; 73562; 80048; 80053; 82962; 83036; 83880; 84443; 84484; 84550; 85025; 93971; 94640; 94760; 96374; G0378; G0379; J1815; J1940; J2405; J3010; 99285-25; J7613

== ENCOUNTER 2021-04-24 08:53 | Inpatient (IN) | payer BC, OTHER ==
[~2021-04-24] VITALS: Ht 177.8 cm; Wt 189.2 kg
[~2021-04-24 08:53] MED LIST changes: +POTA10TA12 PO; +RIVA10TA PO
--- NOTE | 2021-04-24 09:09 | PHYS DOC ---
Past Medical History Past Medical History: CHF, Diabetes-Type II, Hypertension Additional Past Medical Histor: Chronic back pain Past Surgical History: Tonsillectomy Smoking Status: Former Smoker Alcohol Use: Rarely Drug Use: None General Adult EDM: Chief Complaint: SHORTNESS OF BREATH HPI: HPI: 55-year-old male past medical history of COPD, HFpEF, atrial fibrillation, morbid obesity and obstructive sleep apnea, presents the ED with complaints of progressive/worsening swollen legs and stomach stating " I need the water off," for the past 1-2 weeks. Reports inability to sleep due to worsening shortness of breath. Has to sleep upright, cannot lie flat due to dyspnea. Takes Lasix 40 mg daily. Has been vaccinated for Covid. Was positive for Covid in June of this year. Is on 1 L of oxygen at rest and 3 L with activity. Review of Systems: Review of Systems: Constitutional: Denies fever or chills. [] Eyes: Denies change in visual acuity. [] HENT: Denies nasal congestion or sore throat. [] Respiratory: Denies cough or hemoptysis Cardiovascular: Denies chest pain or edema. [] GI: Denies abdominal pain, or bloody stools : Denies dysuria or hematuria Musculoskeletal: Denies back pain or joint pain. [] Integument: Denies diaphoresis or blistering lesions Neurologic: Denies headache, focal weakness or sensory changes. [] Endocrine: Denies polyuria or polydipsia. [] Lymphatic: Denies swollen glands. [] Psychiatric: Denies depression or anxiety. [] Heart Score: C/O Chest Pain: No Risk Factors: Risk Factors: DM, Current or recent (<one month) smoker, HTN, HLP, family history of CAD, obesity. Risk Scores: Score 0 - 3: 2.5% MACE over next 6 weeks - Discharge Home Score 4 - 6: 20.3% MACE over next 6 weeks - Admit for Clinical Observation Score 7 - 10: 72.7% MACE over next 6 weeks - Early Invasive Strategies Allergies: Allergies: Allergies Coded Allergies Type Severity Reaction Last Updated Verified Penicillins Allergy Intermediate Rash 06/20/19 Yes guaifenesin Allergy Intermediate 06/20/19 Yes theophylline Allergy Intermediate 06/20/19 Yes Physical Exam: PE: Constitutional: Well developed, well nourished, no acute distress, non-toxic appearance. HENT: Normocephalic, atraumatic, Eyes: EOMI, conjunctiva normal, no discharge. Neck: Normal range of motion, supple, Cardiovascular: S1/2 present, regular rhythm Lungs & Thorax: Speaking in full sentences, bilateral equal chest rise, + tachypnea with no sternal/subcostal retractions, no wheezing/rales/crackles, on 2 L nc Abdomen: soft, no tenderness, obese swollen pannus Skin: Warm, dry, Back: No tenderness, no CVA tenderness. [] Extremities: no cyanosis, lateral pitting lower extremity edema with venous stasis and hemosiderin deposition Neurologic: Alert and oriented X 3, normal motor function, normal sensory function, no focal deficits noted. [] Psychologic: Affect normal, judgement normal, mood normal. [] EKG: EKG: Atrial fibrillation 85 bpm, no axis deviation, normal intervals, no T wave inversion, no ST elevation or ST depression, low voltage EKG-could be from body habitus Radiology/Procedures: Radiology/Procedures: []IMAGING REPORT Signed PATIENT: LORENZO PAT ACCOUNT: [id number] : 1965 LOCATION: ER AGE: 55 SEX: M EXAM STATUS: PRE ER ORD. PHYSICIAN: LC BLACK DO REASON: soa PROCEDURE: PORTABLE CHEST 1V INDICATION: Reason: soa / Spl. Instructions: / History: COMPARISON: December 10, 2020 FINDINGS: Single view of chest obtained. Cardiomediastinal silhouette is enlarged. Prominence of the bilateral pulmonary hilum. Left lung base is obscured by cardiac silhouette. There is some limitation secondary to overlap of soft tissue structures as well as portable technique but definite consolidation is not seen. IMPRESSION: * Enlarged cardiomediastinal silhouette with enlarged pulmonary hilum again seen bilaterally which could be from prominent pulmonary arteries with lymphadenopathy not excluded. No definite focal airspace consolidation. Electronically signed by: Angel Juarez MD (04/24/2021 9:30 AM) [id number] DICTATED and SIGNED BY: ANGEL JUAREZ MD DATE: 04/24/21 [id number] 0 Course & Med Decision Making: Course & Med Decision Making Pertinent Labs and Imaging studies reviewed. (See chart for details) Concern for worsening shortness of breath requiring nasal cannula. Patient was treated with IV Lasix-has voided 3 times, still complains of shortness of breath. Unable to perform CT of the chest to inability to lie flat/shortness of breath. Will admit for further medical management. I have spoken with the patient and/or caregivers. I have explained the patient's condition, diagnosis and treatment plan based on the information available to me at this time. I have answered the patient's and/or caregivers questions and answered any concerns. The patient and/or caregivers have as good an understanding of the patient's diagnosis, condition and treatment plan as can be expected at this point. The patient has been stabilized within the capability of the emergency department. The patient will be transported for further care and management or will be moved to an observation or inpatient service. I have communicated with the staff or medical practitioner taking over this patient's care. Dragon Disclaimer: Dragon Disclaimer: This electronic medical record was generated, in whole or in part, using a voice recognition dictation system. Departure Departure Impression: Primary Impression: Dyspnea Additional Impressions: CHF (congestive heart failure) Uncontrolled diabetes mellitus Disposition: ADMITTED INPATIENT Admitting Physician: Mina Hernandez Condition: STABLE Referrals: MINA HERNANDEZ MD (PCP) LC BLACK DO Apr 24, 2021 09:09
--- NOTE | 2021-04-24 09:33 | RAD ---
INDICATION: Reason: soa / Spl. Instructions: / History: COMPARISON: December 10, 2020 FINDINGS: Single view of chest obtained. Cardiomediastinal silhouette is enlarged. Prominence of the bilateral pulmonary hilum. Left lung base is obscured by cardiac silhouette. There is some limitation secondary to overlap of soft tissue structures as well as portable technique but definite consolidation is not seen. IMPRESSION: * Enlarged cardiomediastinal silhouette with enlarged pulmonary hilum again seen bilaterally which c ould be from prominent pulmonary arteries with lymphadenopathy not excluded. No definite focal airspa ce consolidation. Electronically signed by: Dhruv Trevizo MD (04/24/2021 9:30 AM) [id number]
[2021-04-24 09:53] LABS: BASO % 0 % (0-3); EOS # 0.1 x10^3/uL (0.0-0.7); EOS % 1 % (0-3); HEMATOCRIT 35.4 % (39.0-53.0); HEMOGLOBIN 11.3 g/dL (13.0-17.5); LYMPH # 1.1 x10^3/uL (1.0-4.8); LYMPH % 13 % (24-48); MEAN CORPUSCULAR HEMOGLOBIN 30 pg (25-35); MEAN CORPUSCULAR HGB CONC 32 g/dL (31-37); MEAN CORPUSCULAR VOLUME 92 fL (79-100); MONO # 0.8 x10^3/uL (0.0-1.1); MONO % 9 % (0-9); NEUT # 6.9 x10^3/uL (1.8-7.7); NEUT % 77 % (31-73); PLATELET COUNT 183 x10^3/uL (140-400); RED BLOOD COUNT 3.83 x10^6/uL (4.30-5.70); WHITE BLOOD COUNT 8.9 x10^3/uL (4.0-11.0)
[2021-04-24 09:56] LABS: CALCIUM 8.1 mg/dL (8.5-10.1); CREATININE 1.2 mg/dL (0.7-1.3); GFR 63.1; POTASSIUM 5.1 mmol/L (3.5-5.1)
[2021-04-24] MEDS ORDERED: FUROSEMIDE 100 MG/10 ML VIAL. IVP ONE (10:00)
[2021-04-24 10:02] LABS: TOTAL PROTEIN 6.8 g/dL (6.4-8.2)
[2021-04-24 10:03] LABS: ALBUMIN/GLOBULIN RATIO 0.8 (1.0-1.7); TOTAL BILIRUBIN 0.6 mg/dL (0.2-1.0)
[2021-04-24 10:49] LABS: INFLUENZA A PATIENT NEGATIVE (NEGATIVE); INFLUENZA B PATIENT NEGATIVE (NEGATIVE)
[2021-04-24] MEDS ORDERED: CONTRAST GIVEN. MC PRN (11:30)
[2021-04-24] MEDS ORDERED: IOHEXOL 350 MG/ML 100 ML VIAL. IV ONE (11:30)
[2021-04-24 15:00] VITALS: BP 110/55
--- NOTE | 2021-04-24 15:00 | EKG ---
[facility] [address] [place] [address] Test Date: 2021-04-24 Test Time: 10:08:39 Pat Name: LORENZO PAT Department: Room: 524 1 Gender: M Economist Research Assistant: : 1965 Requested By: LC BLACK Order Number: [id number] Reading MD: Reynaldo Spear MD Measurements Intervals [place] Rate: 85 P: [place]: QRS: 61 QRSD: 84 T: 64 QT: 358 QTc: 426 Interpretive Statements ATRIAL FIBRILLATION NON-SPECIFIC ST/T CHANGES CONSIDER SEPTAL INFARCT PATTEN Electronically Signed On 04-25-2021 9:43:00 SET UP / OPERATOR by Reynaldo Spear MD
[2021-04-24 19:00] VITALS: BP 119/58
[2021-04-24] MEDS ORDERED: FLU VACC QUAD 21-22 (6MOS+) PF 0.5 ML SYRINGE. VAX IM ONE (19:30)
[2021-04-24] MEDS: ALBUTEROL SULFATE 2.5 MG/3 ML NEBU. NEB PRN (20:57)
[2021-04-24] MEDS ORDERED: DEXTROSE 50% 25 GM / 50ML DISP.SYRIN. IV PRN (21:00)
[2021-04-24] MEDS ORDERED: INSULIN LISPRO 300 UNITS/3 ML VIAL. SQ ONE (21:00)
[2021-04-24] MEDS: BENZONATATE 100 MG CAPSULE. PO PRN (21:48)
[2021-04-24] MEDS: ATORVASTATIN CALCIUM 10 MG TABLET. PO SCH (21:48)
[2021-04-24] MEDS: RIVAROXABAN 10 MG TABLET. PO SCH (21:48)
[2021-04-24] MEDS: ACETAMINOPHEN 325 MG TABLET. PO PRN (21:48)
[2021-04-24] MEDS: INSULIN LISPRO 300 UNITS/3 ML VIAL. SQ SCH (21:51)
[2021-04-24] MEDS: INSULIN GLARGINE SYRINGE. SQ SCH (22:20)
[2021-04-24 23:00] VITALS: BP 117/51
[2021-04-25 03:00] VITALS: BP 119/62
--- NOTE | 2021-04-25 05:30 | EKG ---
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
[2021-04-25 07:00] VITALS: BP 103/27
--- NOTE | 2021-04-25 08:49 | PDOC2 ---
HARVEY WONG CIGARETTE VENDOR 04/25/21 0849: CARDIAC CONSULT DATE OF CONSULT Date of Consult DATE: 04/25/21 TIME: 08:29 REASON FOR CONSULT Reason for Consult: SOA REFERRING PHYSICIAN Referring Physician: Dr. Hernandez SOURCE Source: Chart review, Patient HISTORY OF PRESENT ILLNESS HISTORY OF PRESENT ILLNESS This is 55 yo male who presented secondary to shortness of breath and lower extremity edema. Patient reports he has been short of breath for the last week or so. Associated with LE edema. Reports he ran out of diabetes testing supplies and has not been taking his blood sugar. Thinks it has been uncontrolled has he had been extremely thirsty and cannot get enough water. In turn, has developed LE edema and shortness of breath. Reports that he dropped Lasix bottle in the toilet accidentally, so he ran out of his supply last Saturday. He denies any chest pain, palpitations, dizziness, diaphoresis. No recent fevers or illness. PAST MEDICAL HISTORY Past Medical History Cardiovascular: CHF, HTN, Hyperlipidemia, Other (cardiiomyopathy), AFIB Pulmonary: COPD, Pneumonia, Other (LAURA) CENTRAL NERVOUS SYSTEM: Other (tremors) GI: GERD Musculoskeletal: low back pain, Osteoarthritis Endocrine: Diabetes (2) PAST SURGICAL HISTORY Past Surgical History: Tonsillectomy FAMILY HISTORY Family History: Hypertension SOCIAL HISTORY Social History Smoke: Quit ALCOHOL: none Drugs: None Lives: Alone CURRENT MEDICATIONS CURRENT MEDICATIONS Current Medications Medications (Trade) Dose Ordered Sig/Jeremy Route PRN Reason Start Time Stop Time Status Last Admin Dose Admin Furosemide (Lasix) 80 mg 1X ONCE IVP 04/24/21 10:00 04/24/21 10:01 DC 04/24/21 10:10 Atorvastatin Calcium (Lipitor) 10 mg QHS PO 04/24/21 21:00 04/24/21 21:48 Rivaroxaban (Xarelto) 20 mg DAILYWSUP PO 04/24/21 21:00 04/24/21 21:48 Insulin Human Lispro (HumaLOG) 20 units 1X ONCE SQ 04/24/21 21:00 04/24/21 21:01 DC 04/24/21 22:18 Albuterol Sulfate (Ventolin Neb Soln) 2.5 mg PRN Q4HRS PRN NEB SHORTNESS OF BREATH 04/24/21 20:45 04/24/21 20:57 Acetaminophen (Tylenol) 650 mg PRN Q6HRS PRN PO MILD PAIN / TEMP > 100.3'F 04/24/21 20:45 04/24/21 21:48 Benzonatate (Tessalon Perle) 100 mg PRN TID PRN PO COUGH 04/24/21 20:45 04/24/21 21:48 Insulin Glargine (Lantus Syringe) 160 unit HS SQ 04/24/21 21:00 04/24/21 22:20 ALLERGIES ALLERGIES: Coded Allergies: Penicillins (Verified Allergy, Intermediate, Rash, 06/20/19) guaifenesin (Verified Allergy, Intermediate, 06/20/19) theophylline (Verified Allergy, Intermediate, 06/20/19) ROS Review of System 14 point ROS conducted with pertinent positives noted above in hPI PHYSICAL EXAM PHYSICAL EXAM General: Alert, Oriented X3, Cooperative, No acute distress HEENT: Atraumatic, Mucous membr. moist/pink Lungs: Other (diminished) Heart: IRRR; tele AFIB, rate controlled), Other (distant heart sounds) Abdomen: Other (Obese) Extremities: No cyanosis, Other (2+ bilateral LE edema) Skin: Other (LE venous dermatitis, ) Neuro: Normal speech, Sensation intact Psych/Mental Status: Mental status NL, Mood NL MUSCULOSKELETAL: Osteoarthritic changes both hands VITALS/I&O VITALS/I&O: Vital Signs Date Time Temp Pulse Resp B/P (MAP) Pulse Ox O2 Delivery O2 Flow Rate FiO2 04/25/21 07:00 97.8 84 20 103/27 (52) 98 Nasal Cannula 2.0 97.8 I & O 04/24/21 04/24/21 04/25/21 15:00 23:00 07:00 Intake Total 400 ml 200 ml Balance 400 ml 200 ml LABS Lab: Laboratory Tests Test 04/24/21 09:30 04/24/21 10:09 04/24/21 10:56 04/24/21 20:14 White Blood Count 8.9 x10^3/uL (4.0-11.0) Red Blood Count 3.83 x10^6/uL (4.30-5.70) L Hemoglobin 11.3 g/dL (13.0-17.5) L Hematocrit 35.4 % (39.0-53.0) L Mean Corpuscular Volume 92 fL (79-100) Mean Corpuscular Hemoglobin 30 pg (25-35) Mean Corpuscular Hemoglobin Concent 32 g/dL (31-37) Red Cell Distribution Width 15.0 % (11.5-14.5) H Platelet Count 183 x10^3/uL (140-400) Neutrophils (%) (Auto) 77 % (31-73) H Lymphocytes (%) (Auto) 13 % (24-48) L Monocytes (%) (Auto) 9 % (0-9) Eosinophils (%) (Auto) 1 % (0-3) Basophils (%) (Auto) 0 % (0-3) Neutrophils # (Auto) 6.9 x10^3/uL (1.8-7.7) Lymphocytes # (Auto) 1.1 x10^3/uL (1.0-4.8) Monocytes # (Auto) 0.8 x10^3/uL (0.0-1.1) Eosinophils # (Auto) 0.1 x10^3/uL (0.0-0.7) Basophils # (Auto) 0.0 x10^3/uL (0.0-0.2) Sodium Level 133 mmol/L (136-145) L Potassium Level 5.1 mmol/L (3.5-5.1) Chloride Level 97 mmol/L (98-107) L Carbon Dioxide Level 28 mmol/L (21-32) Anion Gap 8 (6-14) Blood Urea Nitrogen 24 mg/dL (8-26) Creatinine 1.2 mg/dL (0.7-1.3) Estimated GFR (Cockcroft-Gault) 63.1 BUN/Creatinine Ratio 20 (6-20) Glucose Level 416 mg/dL (70-99) H Calcium Level 8.1 mg/dL (8.5-10.1) L Total Bilirubin 0.6 mg/dL (0.2-1.0) Aspartate Amino Transferase (AST) 80 U/L (15-37) H Alanine Aminotransferase (ALT) 98 U/L (16-63) H Alkaline Phosphatase 108 U/L (46-116) Creatine Kinase 57 U/L (39-308) Troponin I High Sensitivity 16 ng/L (4-75) VG-Xti-I-Type Natriuretic Peptide 949 pg/mL (0-124) H Total Protein 6.8 g/dL (6.4-8.2) Albumin 3.0 g/dL (3.4-5.0) L Albumin/Globulin Ratio 0.8 (1.0-1.7) L Influenza Type A Antigen Negative (NEGATIVE) Influenza Type B Antigen Negative (NEGATIVE) Glucose (Fingerstick) 367 mg/dL (70-99) H 371 mg/dL (70-99) H Test 04/25/21 07:44 Glucose (Fingerstick) 206 mg/dL (70-99) H Laboratory Tests 04/24/21 09:30 Laboratory Tests 04/24/21 09:30 ECHOCARDIOGRAM ECHOCARDIOGRAM <Conclusion> Technically difficult study. Left ventricle systolic function is mildly diminished. The Ejection Fraction is 45%. There is normal LV segmental wall motion. Trace mitral regurgitation. Mild tricuspid regurgitation. The PA pressure was estimated at 33 mmHg. There is no evidence of significant pericardial effusion. DATE: 06/21/19 1234 <Conclusion> Technically difficult study. Optison echo contrast used. The left ventricular systolic function appears normal. Estimated ejection fraction 60-65%. There is normal LV segmental wall motion. Mild mitral regurgitation. Mild tricuspid regurgitation. Estimated PAP 47 mmHg. There appears to be no evidence of significant pericardial effusion. DATE: 07/01/20 [id number] 0 ASSESSMENT/PLAN ASSESSMENT/PLAN 1. Acute respiratory failure, multifactorial with cor pulmonale, CHF, probable LAURA. Echo 07/07 with PAP 47 mmHg. 2. Acute on chronic diastolic CHF. Likely induced by ^ fluid intake secondary to uncontrolled DM. Echo 07/07 showed LVEF 60-65%. 3. PAFIB; presently AFIB, rate controlled. on Xarelto for stroke prophylaxis . 4. Hypertension; controlled 5. Morbid obesity with probable LAURA 6. Diabetes, II; uncontrolled. as per IM 7. HLP: statin 8. Elevated LFTs Recommendations Diuresis with monitoring of labs Continue metoprolol for rate control Xarelto for stroke prophylaxis Outpatient echo and ischemic evaluation Needs outpatient sleep study. Supportive care TINY CHURCH MD 04/25/21 0449: CARDIAC CONSULT ASSESSMENT/PLAN ASSESSMENT/PLAN Patient seen and examined. Agree with RADIOLOGY NURSE's assessment and plan. Continue diuresis for acute on chronic diastolic heart failure. Recent 2D echo showed normal LV systolic function with EF 60 to 65%. Atrial fibrillation rate controlled. Continue Xarelto for stroke prophylaxis. Plan ischemic evaluation as an outpatient. Thank you for your consultation. HARVEY WONG APRN Apr 25, 2021 08:49 TINY CHURCH MD Apr 25, 2021 14:56
--- NOTE | 2021-04-25 08:56 | HP ---
DATE OF SERVICE: 04/25/2021 ADMIT DATE: 04/24/2021 CHIEF COMPLAINT AND HISTORY OF PRESENT ILLNESS: This 55-year-old male admitted through the Emergency Room with worsening shortness of breath and diffuse edema. The patient admitted orthopnea on admission. He remains on home oxygen at 1 liter at rest, 3 liters with activity. He was felt to be in congestive heart failure and admitted for the same. PAST MEDICAL HISTORY: Remarkable for CHF, diabetes, hypertension, chronic back pain, former tonsillectomy. The patient has been uninsured and inability to do some work, but has suspected sleep apnea in addition. MEDICATIONS: Brought with the patient, listed on the computer have been addressed. ALLERGIES: HE IS ALLERGIC TO THEOPHYLLINE, GUAIFENESIN, PENICILLIN. SOCIAL HISTORY: He is a former smoker, rarely drinks any alcohol, does not use drugs. , lives at home with his . FAMILY HISTORY: Noncontributory. REVIEW OF SYSTEMS: As mentioned above. PHYSICAL EXAMINATION: GENERAL: He is a well-developed, well-nourished male in no acute distress at this time of my examination, he is sitting up in bed. HEAD, EYES, EARS, NOSE AND THROAT: Unremarkable. O2 is in place. NECK: Supple, without any thyromegaly. CHEST: Reveals distant breath sounds, but clear. HEART: Regular rate and rhythm. ABDOMEN: Obese without significant tenderness. EXTREMITIES: Reveal 3+ edema. NEUROLOGIC: He is intact. IMPRESSION: 1. Dyspnea, likely due to congestive heart failure. 2. Very high blood sugars with uncontrolled diabetes. PLAN: Strive for diabetic control. Pulmonary and Cardiology input to elucidate further workup going forward as the patient now is on Medicare and has a payer source to hopefully get to the bottom of some of these issues and make them better. SCHUYLER DR: Juliet TID: [id number]
[2021-04-25] MEDS ORDERED: INSULIN GLARGINE SYRINGE. SQ SCH (09:00)
[2021-04-25] MEDS ORDERED: FUROSEMIDE 40 MG TABLET. PO SCH (09:00)
[2021-04-25] MEDS: LISINOPRIL 10 MG TABLET PO SCH (09:00)
[2021-04-25] MEDS: FUROSEMIDE 40 MG/4 ML VIAL. IVP SCH ×2 (09:15→14:10)
[2021-04-25] MEDS: POTASSIUM CHLORIDE 10 MEQ TABLET.ER. PO SCH ×2 (09:16→17:03)
[2021-04-25] MEDS: ASPIRIN 325 MG TABLET PO SCH (09:16)
[2021-04-25] MEDS: METOPROLOL SUCC 24HR ER 50 MG TAB.ER.24H. PO SCH (09:16)
[2021-04-25] MEDS: INSULIN LISPRO 300 UNITS/3 ML VIAL. SQ SCH ×4 (09:19→21:30)
--- NOTE | 2021-04-25 10:57 | NUR ---
SW following. Discussed with RN, pt from home, uses 1-2L at home, ada diet. Flu negative. RN advised no SW needs at this time. New admission, awaiting plan of care. SW will continue to follow.
[2021-04-25 11:00] VITALS: BP 128/55
[2021-04-25] MEDS: ALBUTEROL SULFATE 2.5 MG/3 ML NEBU. NEB PRN ×2 (12:28→23:04)
--- NOTE | 2021-04-25 13:19 | CONS ---
DATE OF CONSULTATION: 04/25/2021 PULMONARY CONSULTATION ATTENDING PHYSICIAN: Dr. Hernandez. REASON FOR CONSULTATION: Dyspnea. HISTORY OF PRESENT ILLNESS: The patient is a 55-year-old male who has morbid obesity with a BMI of 59. He was brought into the hospital with increasing shortness of breath. He has overall weight gain and has increased lower extremity edema. No chest pain, no cough, no fever, no chills. No history of DVT or pulmonary embolism. The patient has history of cardiomyopathy, although no recent echo available. His chest x-ray was reviewed. The patient has evidence of mild cardiomegaly and an enlarged pulmonary artery with some mildly prominent vascular markings. No consolidation seen. The patient states he has a history of snoring. He feels tired and fatigued all the time. Previously, he did not have enough insurance to cover for sleep study. He says he now has Medicare. PAST MEDICAL HISTORY: Significant for CHF, hypertension, hyperlipidemia, cardiomyopathy, AFib, history of possible COPD and LAURA, GERD and osteoarthritis. PAST SURGICAL HISTORY: Tonsillectomy. FAMILY HISTORY: Hypertension. SOCIAL HISTORY: Smoked for about 16 years before quitting 20 years ago. REVIEW OF SYSTEMS: A 12-point system obtained. Pertinent positives discussed in my history of present illness, otherwise noncontributory. All systems that were negative were reviewed as well. MEDICATIONS: Reviewed as listed in the MRAD. PHYSICAL EXAMINATION: VITAL SIGNS: Reviewed. Pulse ox 98% on 2 liters, afebrile. NECK: Supple. LUNGS: With diminished breath sounds. CARDIOVASCULAR: With a regular rate. ABDOMEN: Soft, nontender, obese. EXTREMITIES: With bilateral pitting edema and venous stasis. LABORATORY DATA: Reviewed. Influenza screen negative. He is fully immunized with COVID. He also had COVID in the past. BUN 24, creatinine 1.2. IMPRESSION: 1. Acute hypoxic respiratory failure secondary to likely biventricular heart failure. He likely has a component of cor pulmonale and has acute on chronic cor pulmonale. He reportedly has cardiomyopathy and that would be another contributing factor for his dyspnea and hypoxia. 2. Obstructive sleep apnea/suspected obesity hypoventilation syndrome. The patient never had any sleep study as in the past his insurance would not cover that. 3. Underlying morbid obesity. 4. Abnormal chest x-ray suspicious for pulmonary hypertension related to chronic hypoxia from obstructive sleep apnea/obesity hypoventilation syndrome. RECOMMENDATIONS: 1. Discussed with the patient. At this time, I would recommend continue with diuresis. 2. Monitor renal function. 3. Consider sleep study as an outpatient. He has now adequate insurance coverage. 4. Weight loss is strongly advised. 5. Xarelto per cardiology. 6. Obtain echocardiogram and assess EF. 7. Follow cardiology recommendation. 8. Discussed with RN. We will follow along with you. ALVARADO DR: Betsey TID: [id number]
[2021-04-25] MEDS: PREGABALIN 75 MG CAPSULE PO SCH ×2 (14:10→21:34)
[2021-04-25 15:00] VITALS: BP 108/57
[2021-04-25] MEDS: RIVAROXABAN 10 MG TABLET. PO SCH (17:03)
[2021-04-25 19:00] VITALS: BP 92/53
[2021-04-25] MEDS: ATORVASTATIN CALCIUM 10 MG TABLET. PO SCH (21:34)
[2021-04-25] MEDS: INSULIN GLARGINE SYRINGE. SQ SCH (21:41)
[2021-04-25 23:00] VITALS: BP 113/66
[2021-04-26 03:00] VITALS: BP 113/59
[2021-04-26 07:00] VITALS: BP 105/77
--- NOTE | 2021-04-26 07:21 | PDOC ---
PULMONARY PROGRESS NOTES DATE: 04/26/21 TIME: 07:19 Subjective feels better Vitals Vital Signs Date Time Temp Pulse Resp B/P (MAP) Pulse Ox O2 Delivery O2 Flow Rate FiO2 04/26/21 03:00 97.9 83 113/59 (77) 98 Nasal Cannula 2.0 97.9 04/25/21 23:00 20 General: Alert, Oriented X4, No acute distress HEENT: Other Lungs: Clear Cardiovascular: S1, S2 Abdomen: Soft, Non-tender, Other (obese) Extremities: Other (2+edema) Labs Laboratory Tests Test 04/24/21 09:30 04/24/21 10:09 04/24/21 10:56 04/24/21 20:14 White Blood Count 8.9 x10^3/uL (4.0-11.0) Red Blood Count 3.83 x10^6/uL (4.30-5.70) Hemoglobin 11.3 g/dL (13.0-17.5) Hematocrit 35.4 % (39.0-53.0) Mean Corpuscular Volume 92 fL (79-100) Mean Corpuscular Hemoglobin 30 pg (25-35) Mean Corpuscular Hemoglobin Concent 32 g/dL (31-37) Red Cell Distribution Width 15.0 % (11.5-14.5) Platelet Count 183 x10^3/uL (140-400) Neutrophils (%) (Auto) 77 % (31-73) Lymphocytes (%) (Auto) 13 % (24-48) Monocytes (%) (Auto) 9 % (0-9) Eosinophils (%) (Auto) 1 % (0-3) Basophils (%) (Auto) 0 % (0-3) Neutrophils # (Auto) 6.9 x10^3/uL (1.8-7.7) Lymphocytes # (Auto) 1.1 x10^3/uL (1.0-4.8) Monocytes # (Auto) 0.8 x10^3/uL (0.0-1.1) Eosinophils # (Auto) 0.1 x10^3/uL (0.0-0.7) Basophils # (Auto) 0.0 x10^3/uL (0.0-0.2) Sodium Level 133 mmol/L (136-145) Potassium Level 5.1 mmol/L (3.5-5.1) Chloride Level 97 mmol/L (98-107) Carbon Dioxide Level 28 mmol/L (21-32) Anion Gap 8 (6-14) Blood Urea Nitrogen 24 mg/dL (8-26) Creatinine 1.2 mg/dL (0.7-1.3) Estimated GFR (Cockcroft-Gault) 63.1 BUN/Creatinine Ratio 20 (6-20) Glucose Level 416 mg/dL (70-99) Calcium Level 8.1 mg/dL (8.5-10.1) Total Bilirubin 0.6 mg/dL (0.2-1.0) Aspartate Amino Transf (AST/SGOT) 80 U/L (15-37) Alanine Aminotransferase (ALT/SGPT) 98 U/L (16-63) Alkaline Phosphatase 108 U/L (46-116) Creatine Kinase 57 U/L (39-308) Troponin I High Sensitivity 16 ng/L (4-75) RT-Jrq-S-Type Natriuretic Peptide 949 pg/mL (0-124) Total Protein 6.8 g/dL (6.4-8.2) Albumin 3.0 g/dL (3.4-5.0) Albumin/Globulin Ratio 0.8 (1.0-1.7) Influenza Type A Antigen Negative (NEGATIVE) Influenza Type B Antigen Negative (NEGATIVE) Glucose (Fingerstick) 367 mg/dL (70-99) 371 mg/dL (70-99) Test 04/25/21 07:44 04/25/21 12:09 04/25/21 16:30 04/25/21 20:48 Glucose (Fingerstick) 206 mg/dL (70-99) 186 mg/dL (70-99) 65 mg/dL (70-99) 199 mg/dL (70-99) Test 04/25/21 23:10 Glucose (Fingerstick) 246 mg/dL (70-99) Laboratory Tests Test 04/25/21 07:44 04/25/21 12:09 04/25/21 16:30 04/25/21 20:48 Glucose (Fingerstick) 206 mg/dL (70-99) 186 mg/dL (70-99) 65 mg/dL (70-99) 199 mg/dL (70-99) Test 04/25/21 23:10 Glucose (Fingerstick) 246 mg/dL (70-99) Medications Active Scripts Medications Dose Route/Sig Max Daily Dose Days Date Category Klor-Con 10 (Potassium Chloride) 10 Meq Tablet.er 10 Meq PO BIDAFTMEAL 30 12/14/20 Rx Xarelto (Rivaroxaban) 10 Mg Tablet 20 Mg PO DAILYWSUP 30 12/14/20 Rx Aspirin 325 Mg Tablet 325 Mg PO DAILY 06/30/20 Reported Lasix (Furosemide) 40 Mg Tablet 1 Tab PO DAILY 30 06/24/19 Rx Lisinopril 10 Mg Tablet 10 Mg PO DAILY 30 06/24/19 Rx Toprol XL (Metoprolol Succinate) 50 Mg Tab.er.24h 50 Mg PO DAILY 30 06/24/19 Rx Atorvastatin Calcium 10 Mg Tablet 10 Mg PO QHS 30 06/24/19 Rx Proair Hfa (Albuterol Sulfate) 8.5 Gm Hfa.aer.ad 2.5 Mg NEB PRN Q4HRS PRN 30 06/24/19 Rx Novolog (Insulin Aspart) 100 Unit/1 Ml Vial 50 Unit SQ TIDWMEALHC 06/19/19 Reported Tresiba Flextouch U-200 (Insulin Degludec) 200 Unit/1 Ml Insuln.pen 160 Unit SQ DAILY 06/19/19 Reported Impression . IMPRESSION: 1. Acute hypoxic respiratory failure secondary to likely biventricular heart failure. He likely has a component of cor pulmonale and has acute on chronic cor pulmonale. He reportedly has cardiomyopathy and that would be another contributing factor for his dyspnea and hypoxia. 2. Obstructive sleep apnea/suspected obesity hypoventilation syndrome. The patient never had any sleep study as in the past his insurance would not cover that. 3. Underlying morbid obesity. 4. Abnormal chest x-ray suspicious for pulmonary hypertension related to chronic hypoxia from obstructive sleep apnea/obesity hypoventilation syndrome. Plan . RECOMMENDATIONS: 1. Discussed with the patient. At this time, I would recommend continue with diuresis. 2. Monitor renal function. 3. Consider sleep study as an outpatient. He has now adequate insurance coverage. 4. Weight loss is strongly advised. 5. Xarelto per cardiology. 6. Obtain echocardiogram and assess EF. 7. Follow cardiology recommendation. 8. Discussed with RN. We will follow along with you. ELVIS DUMAS MD Apr 26, 2021 07:21
[2021-04-26 08:13] LABS: CALCIUM 8.1 mg/dL (8.5-10.1); CREATININE 0.8 mg/dL (0.7-1.3); GFR 100.7; POTASSIUM 5.3 mmol/L (3.5-5.1)
[2021-04-26] MEDS: ASPIRIN 325 MG TABLET PO SCH (08:17)
[2021-04-26] MEDS: METOPROLOL SUCC 24HR ER 50 MG TAB.ER.24H. PO SCH (08:17)
[2021-04-26] MEDS: PREGABALIN 75 MG CAPSULE PO SCH ×2 (08:18→21:31)
[2021-04-26] MEDS: FUROSEMIDE 40 MG/4 ML VIAL. IVP SCH ×2 (08:18→14:18)
[2021-04-26] MEDS: INSULIN LISPRO 300 UNITS/3 ML VIAL. SQ SCH ×4 (08:23→21:46)
[2021-04-26] MEDS: POTASSIUM CHLORIDE 10 MEQ TABLET.ER. PO SCH ×2 (08:23→17:45)
[2021-04-26] MEDS: LISINOPRIL 10 MG TABLET PO SCH (08:23)
--- NOTE | 2021-04-26 10:51 | PDOC ---
HARVEY WONG PUBLIC RELATIONS SUPERVISOR 04/26/21 1051: CARDIO Progress Notes Date and Time Date of Service 04/26/21 Time of Evaluation 1045 Subjective Subjective: No Chest Pain, No shortness of breath, Other Vitals Vitals Vital Signs Date Time Temp Pulse Resp B/P (MAP) Pulse Ox O2 Delivery O2 Flow Rate FiO2 04/26/21 08:23 88 105/77 04/26/21 08:00 Nasal Cannula 2.0 04/26/21 07:00 98.1 20 99 98.1 Weight Weight [ ] Input and Output Intake and Output Intake and Output 04/26/21 07:00 Intake Total 600 ml Balance 600 ml Intake Oral 600 ml # Voids 4 Laboratory Labs Laboratory Tests Test 04/25/21 12:09 04/25/21 16:30 04/25/21 20:48 04/25/21 23:10 Glucose (Fingerstick) 186 mg/dL (70-99) 65 mg/dL (70-99) 199 mg/dL (70-99) 246 mg/dL (70-99) Test 04/26/21 06:50 04/26/21 07:37 Sodium Level 135 mmol/L (136-145) Potassium Level 5.3 mmol/L (3.5-5.1) Chloride Level 99 mmol/L (98-107) Carbon Dioxide Level 30 mmol/L (21-32) Anion Gap 6 (6-14) Blood Urea Nitrogen 23 mg/dL (8-26) Creatinine 0.8 mg/dL (0.7-1.3) Estimated GFR (Cockcroft-Gault) 100.7 Glucose Level 180 mg/dL (70-99) Calcium Level 8.1 mg/dL (8.5-10.1) Glucose (Fingerstick) 184 mg/dL (70-99) Physical Exam HEENT: Neck Supple W Full Motion Chest: Symmetric LUNGS: Other (diminished ) Heart: irregularly irregular (AFIB, rate controlled ) Abdomen: Soft N/T Extremities: Other (LE venous dermatitis, 2+ bilateral LE edema ) Neurology: alert, oriented, follow commands Assessment Assessment 1. Acute respiratory failure, multifactorial with cor pulmonale, CHF, probable LAURA. Echo 07/07 with PAP 47 mmHg. 2. Acute on chronic diastolic CHF. Likely induced by ^ fluid intake secondary to uncontrolled DM. Echo 07/07 showed LVEF 60-65%. 3. PAFIB; presently AFIB, rate controlled. on Xarelto for stroke prophylaxis. 4. Hypertension; controlled 5. Morbid obesity with probable LAURA 6. Diabetes, II; uncontrolled. as per IM 7. HLP: statin 8. Elevated LFTs 9. Hyperkalemia Recommendations Ongoing diuresis with monitoring of labs. Continue Lasix, add metolazone Hold lisinopril with hyperkalemia Accurate I and O Continue metoprolol for rate control Xarelto for stroke prophylaxis Outpatient echo and ischemic evaluation Needs outpatient sleep study. Consider outpatient CV if he remains in AFIB Supportive care Justicifation of Admission Dx: Justifications for Admission: Justification of Admission Dx: Yes TINY CHURCH MD 04/27/21 1133: CARDIO Progress Notes Assessment Assessment Patient seen and examined. Agree with RUSTIC FENCE BUILDER's assessment and plan. Continue diuresis for acute on chronic diastolic heart failure. Agree with addin g metolazone. Recent 2D echo showed normal LV systolic function with EF 60 to 65%. Atrial fibrillation rate controlled. Continue Xarelto for stroke prophylaxis. Plan ischemic evaluation as an outpatient. HARVEY WONG APRN Apr 26, 2021 10:51 TINY CHURCH MD Apr 27, 2021 11:33
[2021-04-26 11:00] VITALS: BP 121/68
[2021-04-26] MEDS: metOLazone 2.5 MG TABLET PO SCH (14:17)
[2021-04-26] MEDS: ALBUTEROL SULFATE 2.5 MG/3 ML NEBU. NEB PRN ×2 (14:36→22:32)
[2021-04-26 15:12] VITALS: BP 108/72
[2021-04-26] MEDS: RIVAROXABAN 10 MG TABLET. PO SCH (17:43)
[2021-04-26 19:00] VITALS: BP 114/67
--- NOTE | 2021-04-26 20:43 | PN ---
DATE: 04/26/2021 DAILY PROGRESS NOTE LOCATION: He is in room 524. SUBJECTIVE: This 55-year-old male remains hospitalized with shortness of breath due to biventricular failure. He feels somewhat better this morning, but still not quite at his baseline. He denies that he is urinating a lot with the current regimen, but again enough that he feels significantly better. OBJECTIVE: VITAL SIGNS: Stable. He is afebrile. CHEST: Clear. HEART: Regular. ABDOMEN: Benign. EXTREMITIES: She has 2+ edema. NEUROLOGIC: Intact. LABORATORY DATA: This morning labs show slightly increased potassium of 5.3 and lisinopril has been held by Cardiology and they have added metolazone for better diuresis. IMPRESSION: Acute hypoxic respiratory failure due to biventricular heart failure, suspected obstructive sleep apnea, morbid obesity. PLAN: Continue trial of diuresis. Sleep study as an outpatient. Likely discharge tomorrow. TRACY DR: Juliet TID: [id number]
[2021-04-26] MEDS: ATORVASTATIN CALCIUM 10 MG TABLET. PO SCH (21:31)
[2021-04-26] MEDS: INSULIN GLARGINE SYRINGE. SQ SCH (21:49)
[2021-04-26] MEDS: ACETAMINOPHEN 325 MG TABLET. PO PRN (21:52)
--- NOTE | 2021-04-26 22:13 | NUR ---
After lengthy conversation regarding blood sugars and per pt request, only 30 units of Humalog and 80 units of Lantus given. Educated pt on importance of calling if he feels that sugars are low. Will monitor.
[2021-04-26 23:00] VITALS: BP 119/62
[2021-04-27 03:00] VITALS: BP 122/60
[2021-04-27 07:00] VITALS: BP 134/78
[2021-04-27] MEDS: INSULIN LISPRO 300 UNITS/3 ML VIAL. SQ SCH ×4 (08:14→21:30)
--- NOTE | 2021-04-27 08:52 | PDOC ---
PULMONARY PROGRESS NOTES DATE: 04/27/21 TIME: 08:51 Subjective feels better Vitals Vital Signs Date Time Temp Pulse Resp B/P (MAP) Pulse Ox O2 Delivery O2 Flow Rate FiO2 04/27/21 07:30 Nasal Cannula 2.0 04/27/21 03:00 97.8 80 19 122/60 (80) 98 97.8 General: Alert, Oriented X4, No acute distress HEENT: Other Lungs: Clear Cardiovascular: S1, S2 Abdomen: Soft, Non-tender, Other (obese) Extremities: Other (2+edema) Labs Laboratory Tests Test 04/25/21 12:09 04/25/21 16:30 04/25/21 20:48 04/25/21 23:10 Glucose (Fingerstick) 186 mg/dL (70-99) 65 mg/dL (70-99) 199 mg/dL (70-99) 246 mg/dL (70-99) Test 04/26/21 06:50 04/26/21 07:37 04/26/21 11:49 04/26/21 16:51 Sodium Level 135 mmol/L (136-145) Potassium Level 5.3 mmol/L (3.5-5.1) Chloride Level 99 mmol/L (98-107) Carbon Dioxide Level 30 mmol/L (21-32) Anion Gap 6 (6-14) Blood Urea Nitrogen 23 mg/dL (8-26) Creatinine 0.8 mg/dL (0.7-1.3) Estimated GFR (Cockcroft-Gault) 100.7 Glucose Level 180 mg/dL (70-99) Calcium Level 8.1 mg/dL (8.5-10.1) Glucose (Fingerstick) 184 mg/dL (70-99) 245 mg/dL (70-99) 86 mg/dL (70-99) Test 04/26/21 19:02 04/27/21 00:14 04/27/21 07:43 Glucose (Fingerstick) 111 mg/dL (70-99) 80 mg/dL (70-99) 85 mg/dL (70-99) Laboratory Tests Test 04/26/21 11:49 04/26/21 16:51 04/26/21 19:02 04/27/21 00:14 Glucose (Fingerstick) 245 mg/dL (70-99) 86 mg/dL (70-99) 111 mg/dL (70-99) 80 mg/dL (70-99) Test 04/27/21 07:43 Glucose (Fingerstick) 85 mg/dL (70-99) Medications Active Scripts Medications Dose Route/Sig Max Daily Dose Days Date Category Klor-Con 10 (Potassium Chloride) 10 Meq Tablet.er 10 Meq PO BIDAFTMEAL 30 12/14/20 Rx Xarelto (Rivaroxaban) 10 Mg Tablet 20 Mg PO DAILYWSUP 30 12/14/20 Rx Aspirin 325 Mg Tablet 325 Mg PO DAILY 06/30/20 Reported Lasix (Furosemide) 40 Mg Tablet 1 Tab PO DAILY 30 06/24/19 Rx Lisinopril 10 Mg Tablet 10 Mg PO DAILY 30 06/24/19 Rx Toprol XL (Metoprolol Succinate) 50 Mg Tab.er.24h 50 Mg PO DAILY 30 06/24/19 Rx Atorvastatin Calcium 10 Mg Tablet 10 Mg PO QHS 30 06/24/19 Rx Proair Hfa (Albuterol Sulfate) 8.5 Gm Hfa.aer.ad 2.5 Mg NEB PRN Q4HRS PRN 30 06/24/19 Rx Novolog (Insulin Aspart) 100 Unit/1 Ml Vial 50 Unit SQ TIDWMEALHC 06/19/19 Reported Tresiba Flextouch U-200 (Insulin Degludec) 200 Unit/1 Ml Insuln.pen 160 Unit SQ DAILY 06/19/19 Reported Impression . IMPRESSION: 1. Acute hypoxic respiratory failure secondary to likely biventricular heart failure. He likely has a component of cor pulmonale and has acute on chronic cor pulmonale. He reportedly has cardiomyopathy and that would be another contributing factor for his dyspnea and hypoxia. 2. Obstructive sleep apnea/suspected obesity hypoventilation syndrome. The patient never had any sleep study as in the past his insurance would not cover that. 3. Underlying morbid obesity. 4. Abnormal chest x-ray suspicious for pulmonary hypertension related to chronic hypoxia from obstructive sleep apnea/obesity hypoventilation syndrome. Plan . RECOMMENDATIONS: 1. Discussed with the patient. At this time, I would recommend continue with diuresis. 2. Monitor renal function. 3. Consider sleep study as an outpatient. He has now adequate insurance coverage. 4. Weight loss is strongly advised. 5. Xarelto per cardiology. 6. Last echo from June of this year with normal ejection fraction of 60%. 7. Follow cardiology recommendation. 8. Discussed with DILCIA. Kylie to discharge from a pulmonary standpoint. ELVIS DUMAS MD Apr 27, 2021 08:52
--- NOTE | 2021-04-27 08:56 | PN ---
DATE: 04/27/2021 DAILY PROGRESS NOTE LOCATION: He is in room 524. SUBJECTIVE: This 55-year-old male remains hospitalized with shortness of breath, felt due to biventricular failure. He is definitely improved this morning and had a brisk diuresis with some metolazone. He is approaching his baseline. I would like to see him get another dose today to see where he was at prior to considering discharge tomorrow, but he definitely is improved. He does complain of inability to sleep and sleeps very little at night and would like to try Belsomra if possible for sleep while he is here as it would seem safe with his respiratory issues. OBJECTIVE: VITAL SIGNS: Stable. He is afebrile. CHEST: Clear. HEART: Regular. ABDOMEN: Benign. EXTREMITIES: He still has 1-2+ edema. NEUROLOGIC: Intact. LABORATORY DATA: No a.m. labs for review, but we will recheck renal and potassium in the morning. IMPRESSION: Acute hypoxic respiratory failure due to biventricular heart failure with suspected obstructive sleep apnea, morbid obesity. PLAN: Continue diuresis, sleep study as an outpatient. We will again follow labs in the morning and try to see if we can get Belsomra for him at bedtime tonight. TRACY DR: Juliet TID: [id number]
[2021-04-27] MEDS: POTASSIUM CHLORIDE 10 MEQ TABLET.ER. PO SCH ×2 (09:24→17:31)
[2021-04-27] MEDS: METOPROLOL SUCC 24HR ER 50 MG TAB.ER.24H. PO SCH (09:24)
[2021-04-27] MEDS: ASPIRIN 325 MG TABLET PO SCH (09:24)
[2021-04-27] MEDS: metOLazone 2.5 MG TABLET PO SCH (09:24)
[2021-04-27] MEDS: PREGABALIN 75 MG CAPSULE PO SCH ×2 (09:25→21:17)
[2021-04-27] MEDS: FUROSEMIDE 40 MG/4 ML VIAL. IVP SCH ×2 (09:25→14:22)
--- NOTE | 2021-04-27 10:21 | NUR ---
SW following. Discussed with RN, pt from home, 2L (uses oxygen at home), ada diet. Possible discharge home tomorrow after more diuresing today. SW will continue to follow.
[2021-04-27 11:00] VITALS: BP 110/50
--- NOTE | 2021-04-27 11:27 | PDOC ---
HARVEY WONG ZURI 04/27/21 1127: CARDIO Progress Notes Date and Time Date of Service 04/27/21 Time of Evaluation 1120 Subjective Subjective: No Chest Pain, No shortness of breath, Other (good UOP since yesterday. Feels like swelling has improved) Vitals Vitals Vital Signs Date Time Temp Pulse Resp B/P (MAP) Pulse Ox O2 Delivery O2 Flow Rate FiO2 04/27/21 09:24 96 134/78 04/27/21 07:30 Nasal Cannula 2.0 04/27/21 07:00 97.3 18 99 97.3 Weight Weight [ ] Input and Output Intake and Output Intake and Output 04/27/21 07:00 Intake Total 2320 ml Output Total 2600 ml Balance -280 ml Intake Oral 2320 ml Output Urine Total 2600 ml # Voids 3 Laboratory Labs Laboratory Tests Test 04/26/21 11:49 04/26/21 16:51 04/26/21 19:02 04/27/21 00:14 Glucose (Fingerstick) 245 mg/dL (70-99) 86 mg/dL (70-99) 111 mg/dL (70-99) 80 mg/dL (70-99) Test 04/27/21 07:43 Glucose (Fingerstick) 85 mg/dL (70-99) Physical Exam HEENT: Neck Supple W Full Motion Chest: Symmetric LUNGS: Other (diminished ) Heart: irregularly irregular (AFIB, rate controlled overall ) Abdomen: Soft N/T, Other (obese) Extremities: Other (LE venous dermatitis, 1-2+ bilateral LE edema ) Neurology: alert, oriented, follow commands Assessment Assessment 1. Acute respiratory failure, multifactorial with cor pulmonale, CHF, probable LAURA. Echo 07/07 with PAP 47 mmHg. 2. Acute on chronic diastolic CHF. Likely induced by ^ fluid intake secondary to uncontrolled DM. Echo 07/07 showed LVEF 60-65%. Improved s/p diuresis 3. PAFIB; presently AFIB, rate controlled overall. 4. Hypertension; controlled 5. Morbid obesity with probable LAURA 6. Diabetes, II; uncontrolled. as per IM 7. HLP: statin 8. Elevated LFTs 9. Hyperkalemia Recommendations Ongoing diuresis with monitoring of renal function, electrolytes Am labs Monitor I and O, daily weights Discussed/encouraged 2000cc FR and 2 Gm Na diet Continue metoprolol for rate control Xarelto for stroke prophylaxis Outpatient echo and stress test as arranged Needs outpatient sleep study. Consider outpatient CV if he remains in AFIB Supportive care Follow up with Dr. Farah has been arranged. Justicifation of Admission Dx: Justifications for Admission: Justification of Admission Dx: Yes TINY FARAH MD 04/27/21 1648: CARDIO Progress Notes Assessment Assessment Patient seen and examined. Agree with LINE UP MACHINE OPERATOR's assessment and plan. Acute on chronic diastolic heart failure better compensated. Recent 2D echo showed normal LV systolic function with EF 60 to 65%. Atrial fibrillation rate controlled. Continue Xarelto for stroke prophylaxis. Plan ischemic evaluation as an outpatient. We will consider cardioversion as an outpatient HARVEY WONG APRN Apr 27, 2021 11:27 TINY FARAH MD Apr 27, 2021 16:48
--- NOTE | 2021-04-27 12:19 | NUR ---
Belsomra for sleep non-formulary and not available by our pharmacy, and Dr. Hernandez made aware and did not want to substitute anything else for sleep. Patient informed and stated understanding. Will continue to monitor.
[2021-04-27 15:00] VITALS: BP 100/64
[2021-04-27] MEDS: RIVAROXABAN 10 MG TABLET. PO SCH (17:31)
[2021-04-27 19:00] VITALS: BP 124/52
[2021-04-27] MEDS: ATORVASTATIN CALCIUM 10 MG TABLET. PO SCH (21:17)
[2021-04-27] MEDS: INSULIN GLARGINE SYRINGE. SQ SCH (21:27)
[2021-04-27 23:00] VITALS: BP 110/68
[2021-04-28 03:00] VITALS: BP 117/42
[2021-04-28 05:50] LABS: BASO # 0.1 x10^3/uL (0.0-0.2); BASO % 1 % (0-3); EOS # 0.2 x10^3/uL (0.0-0.7); EOS % 2 % (0-3); HEMATOCRIT 36.4 % (39.0-53.0); HEMOGLOBIN 11.8 g/dL (13.0-17.5); LYMPH # 1.9 x10^3/uL (1.0-4.8); LYMPH % 18 % (24-48); MEAN CORPUSCULAR HEMOGLOBIN 30 pg (25-35); MEAN CORPUSCULAR HGB CONC 32 g/dL (31-37); MEAN CORPUSCULAR VOLUME 91 fL (79-100); MONO % 9 % (0-9); NEUT # 7.6 x10^3/uL (1.8-7.7); NEUT % 71 % (31-73); PLATELET COUNT 194 x10^3/uL (140-400); RED BLOOD COUNT 3.99 x10^6/uL (4.30-5.70); RED CELL DISTRIBUTION WIDTH 14.7 % (11.5-14.5); WHITE BLOOD COUNT 10.7 x10^3/uL (4.0-11.0)
[2021-04-28 06:03] LABS: CALCIUM 8.6 mg/dL (8.5-10.1); CREATININE 1.1 mg/dL (0.7-1.3); GFR 69.8; POTASSIUM 3.9 mmol/L (3.5-5.1)
[2021-04-28 07:00] VITALS: BP 110/68
[2021-04-28] MEDS ORDERED: ALBU2.5V8 NEB (07:59)
[2021-04-28] MEDS ORDERED: METO2.5T PO (07:59)
[2021-04-28] MEDS ORDERED: FURO-68 PO (07:59)
[2021-04-28] MEDS ORDERED: FUROSEMIDE 40 MG TABLET. PO SCH (09:00)
[2021-04-28] MEDS: metOLazone 2.5 MG TABLET PO SCH (09:17)
[2021-04-28] MEDS: ASPIRIN 325 MG TABLET PO SCH (09:18)
[2021-04-28] MEDS: METOPROLOL SUCC 24HR ER 50 MG TAB.ER.24H. PO SCH (09:18)
[2021-04-28] MEDS: PREGABALIN 75 MG CAPSULE PO SCH (09:19)
[2021-04-28] MEDS: BENZONATATE 100 MG CAPSULE. PO PRN (09:19)
[2021-04-28] MEDS: POTASSIUM CHLORIDE 10 MEQ TABLET.ER. PO SCH (09:20)
[2021-04-28] MEDS: INSULIN LISPRO 300 UNITS/3 ML VIAL. SQ SCH (09:21)
--- NOTE | 2021-04-28 09:30 | PDOC ---
ADEOLA JJ BLOCKER AND POLISHER 04/28/21 0930: CARDIO Progress Notes Date and Time Date of Service 04/28/2021 Time of Evaluation 0910 Subjective Subjective: No Chest Pain, No shortness of breath, No Palpitations Vitals Vitals Vital Signs Date Time Temp Pulse Resp B/P (MAP) Pulse Ox O2 Delivery O2 Flow Rate FiO2 04/28/21 07:00 97.8 94 20 110/68 (82) 100 Nasal Cannula 2.0 97.8 Weight Weight [ ] Input and Output Intake and Output Intake and Output 04/28/21 07:00 Intake Total 1840 ml Output Total 7600 ml Balance -5760 ml Intake Oral 1840 ml Output Urine Total 7600 ml # Voids 2 Laboratory Labs Laboratory Tests Test 04/27/21 11:29 04/27/21 14:41 04/27/21 15:03 04/27/21 17:22 Glucose (Fingerstick) 211 mg/dL (70-99) 48 mg/dL (70-99) 108 mg/dL (70-99) 98 mg/dL (70-99) Test 04/27/21 20:47 04/28/21 03:55 04/28/21 07:18 Glucose (Fingerstick) 207 mg/dL (70-99) 84 mg/dL (70-99) White Blood Count 10.7 x10^3/uL (4.0-11.0) Red Blood Count 3.99 x10^6/uL (4.30-5.70) Hemoglobin 11.8 g/dL (13.0-17.5) Hematocrit 36.4 % (39.0-53.0) Mean Corpuscular Volume 91 fL (79-100) Mean Corpuscular Hemoglobin 30 pg (25-35) Mean Corpuscular Hemoglobin Concent 32 g/dL (31-37) Red Cell Distribution Width 14.7 % (11.5-14.5) Platelet Count 194 x10^3/uL (140-400) Neutrophils (%) (Auto) 71 % (31-73) Lymphocytes (%) (Auto) 18 % (24-48) Monocytes (%) (Auto) 9 % (0-9) Eosinophils (%) (Auto) 2 % (0-3) Basophils (%) (Auto) 1 % (0-3) Neutrophils # (Auto) 7.6 x10^3/uL (1.8-7.7) Lymphocytes # (Auto) 1.9 x10^3/uL (1.0-4.8) Monocytes # (Auto) 1.0 x10^3/uL (0.0-1.1) Eosinophils # (Auto) 0.2 x10^3/uL (0.0-0.7) Basophils # (Auto) 0.1 x10^3/uL (0.0-0.2) Sodium Level 136 mmol/L (136-145) Potassium Level 3.9 mmol/L (3.5-5.1) Chloride Level 97 mmol/L (98-107) Carbon Dioxide Level 34 mmol/L (21-32) Anion Gap 5 (6-14) Blood Urea Nitrogen 27 mg/dL (8-26) Creatinine 1.1 mg/dL (0.7-1.3) Estimated GFR (Cockcroft-Gault) 69.8 Glucose Level 124 mg/dL (70-99) Calcium Level 8.6 mg/dL (8.5-10.1) Magnesium Level 2.2 mg/dL (1.8-2.4) Physical Exam HEENT: Neck Supple W Full Motion Chest: Symmetric LUNGS: Other (diminished ) Heart: irregularly irregular (not on tele) Abdomen: Soft N/T, Other (obese) Extremities: Other (LE venous dermatitis, 1-2+ bilateral LE edema ) Neurology: alert, oriented, follow commands Assessment Assessment 1. Acute respiratory failure, multifactorial with cor pulmonale, CHF, probable LAURA. Echo 07/07 with PAP 47 mmHg. 2. Acute on chronic diastolic CHF. Likely induced by ^ fluid intake secondary to uncontrolled DM. Echo 07/07 showed LVEF 60-65%. Improved s/p diuresis 3. PAFIB; presently AFIB, rate controlled overall. 4. Hypertension; controlled 5. Morbid obesity with probable LAURA 6. Diabetes, II; uncontrolled. as per IM 7. HLP: statin 8. Elevated LFTs 9. Hyperkalemia; reseolved Recommendations Lasix therapy Daily wt Discussed/encouraged 2000cc FR and 2 Gm Na diet Continue metoprolol for rate control Xarelto for stroke prophylaxis Outpatient echo and stress test as arranged Needs outpatient sleep study. Consider outpatient CV if he remains in AFIB Supportive care Follow up with Dr. Church has been arranged. Justicifation of Admission Dx: Justifications for Admission: Justification of Admission Dx: Yes TINY CHURCH MD 04/28/21 1454: CARDIO Progress Notes Assessment Assessment Patient seen and examined. Agree with MATERNITY FLOOR SUPERVISOR's assessment and plan. Acute on chronic diastolic heart failure better compensated. Recent 2D echo showed normal LV systolic function with EF 60 to 65%. Atrial fibrillation rate controlled. Continue Xarelto for stroke prophylaxis. Plan ischemic evaluation as an outpatient. Plan outpatient cardioversion ADEOLA JJ APRN Apr 28, 2021 09:30 TINY CHURCH MD Apr 28, 2021 14:54
--- NOTE | 2021-04-28 10:06 | PDOC ---
PULMONARY PROGRESS NOTES DATE: 04/28/21 TIME: 10:05 Subjective feels better Vitals Vital Signs Date Time Temp Pulse Resp B/P (MAP) Pulse Ox O2 Delivery O2 Flow Rate FiO2 04/28/21 09:18 94 110/68 04/28/21 07:00 97.8 20 100 Nasal Cannula 2.0 97.8 General: Alert, Oriented X4, No acute distress HEENT: Other Lungs: Clear Cardiovascular: S1, S2 Abdomen: Soft, Non-tender, Other (obese) Extremities: Other (2+edema) Labs Laboratory Tests Test 04/26/21 11:49 04/26/21 16:51 04/26/21 19:02 04/27/21 00:14 Glucose (Fingerstick) 245 mg/dL (70-99) 86 mg/dL (70-99) 111 mg/dL (70-99) 80 mg/dL (70-99) Test 04/27/21 07:43 04/27/21 11:29 04/27/21 14:41 04/27/21 15:03 Glucose (Fingerstick) 85 mg/dL (70-99) 211 mg/dL (70-99) 48 mg/dL (70-99) 108 mg/dL (70-99) Test 04/27/21 17:22 04/27/21 20:47 04/28/21 03:55 04/28/21 07:18 Glucose (Fingerstick) 98 mg/dL (70-99) 207 mg/dL (70-99) 84 mg/dL (70-99) White Blood Count 10.7 x10^3/uL (4.0-11.0) Red Blood Count 3.99 x10^6/uL (4.30-5.70) Hemoglobin 11.8 g/dL (13.0-17.5) Hematocrit 36.4 % (39.0-53.0) Mean Corpuscular Volume 91 fL (79-100) Mean Corpuscular Hemoglobin 30 pg (25-35) Mean Corpuscular Hemoglobin Concent 32 g/dL (31-37) Red Cell Distribution Width 14.7 % (11.5-14.5) Platelet Count 194 x10^3/uL (140-400) Neutrophils (%) (Auto) 71 % (31-73) Lymphocytes (%) (Auto) 18 % (24-48) Monocytes (%) (Auto) 9 % (0-9) Eosinophils (%) (Auto) 2 % (0-3) Basophils (%) (Auto) 1 % (0-3) Neutrophils # (Auto) 7.6 x10^3/uL (1.8-7.7) Lymphocytes # (Auto) 1.9 x10^3/uL (1.0-4.8) Monocytes # (Auto) 1.0 x10^3/uL (0.0-1.1) Eosinophils # (Auto) 0.2 x10^3/uL (0.0-0.7) Basophils # (Auto) 0.1 x10^3/uL (0.0-0.2) Sodium Level 136 mmol/L (136-145) Potassium Level 3.9 mmol/L (3.5-5.1) Chloride Level 97 mmol/L (98-107) Carbon Dioxide Level 34 mmol/L (21-32) Anion Gap 5 (6-14) Blood Urea Nitrogen 27 mg/dL (8-26) Creatinine 1.1 mg/dL (0.7-1.3) Estimated GFR (Cockcroft-Gault) 69.8 Glucose Level 124 mg/dL (70-99) Calcium Level 8.6 mg/dL (8.5-10.1) Magnesium Level 2.2 mg/dL (1.8-2.4) Laboratory Tests Test 04/27/21 11:29 04/27/21 14:41 04/27/21 15:03 04/27/21 17:22 Glucose (Fingerstick) 211 mg/dL (70-99) 48 mg/dL (70-99) 108 mg/dL (70-99) 98 mg/dL (70-99) Test 04/27/21 20:47 04/28/21 03:55 04/28/21 07:18 Glucose (Fingerstick) 207 mg/dL (70-99) 84 mg/dL (70-99) White Blood Count 10.7 x10^3/uL (4.0-11.0) Red Blood Count 3.99 x10^6/uL (4.30-5.70) Hemoglobin 11.8 g/dL (13.0-17.5) Hematocrit 36.4 % (39.0-53.0) Mean Corpuscular Volume 91 fL (79-100) Mean Corpuscular Hemoglobin 30 pg (25-35) Mean Corpuscular Hemoglobin Concent 32 g/dL (31-37) Red Cell Distribution Width 14.7 % (11.5-14.5) Platelet Count 194 x10^3/uL (140-400) Neutrophils (%) (Auto) 71 % (31-73) Lymphocytes (%) (Auto) 18 % (24-48) Monocytes (%) (Auto) 9 % (0-9) Eosinophils (%) (Auto) 2 % (0-3) Basophils (%) (Auto) 1 % (0-3) Neutrophils # (Auto) 7.6 x10^3/uL (1.8-7.7) Lymphocytes # (Auto) 1.9 x10^3/uL (1.0-4.8) Monocytes # (Auto) 1.0 x10^3/uL (0.0-1.1) Eosinophils # (Auto) 0.2 x10^3/uL (0.0-0.7) Basophils # (Auto) 0.1 x10^3/uL (0.0-0.2) Sodium Level 136 mmol/L (136-145) Potassium Level 3.9 mmol/L (3.5-5.1) Chloride Level 97 mmol/L (98-107) Carbon Dioxide Level 34 mmol/L (21-32) Anion Gap 5 (6-14) Blood Urea Nitrogen 27 mg/dL (8-26) Creatinine 1.1 mg/dL (0.7-1.3) Estimated GFR (Cockcroft-Gault) 69.8 Glucose Level 124 mg/dL (70-99) Calcium Level 8.6 mg/dL (8.5-10.1) Magnesium Level 2.2 mg/dL (1.8-2.4) Medications Active Scripts Medications Dose Route/Sig Max Daily Dose Days Date Category Klor-Con 10 (Potassium Chloride) 10 Meq Tablet.er 10 Meq PO BIDAFTMEAL 12/14/20 Rx Xarelto (Rivaroxaban) 10 Mg Tablet 20 Mg PO DAILYWSUP 12/14/20 Rx Aspirin 325 Mg Tablet 325 Mg PO DAILY 06/30/20 Reported Lasix (Furosemide) 40 Mg Tablet 1 Tab PO DAILY 30 06/24/19 Rx Lisinopril 10 Mg Tablet 10 Mg PO DAILY 30 06/24/19 Rx Toprol XL (Metoprolol Succinate) 50 Mg Tab.er.24h 50 Mg PO DAILY 30 06/24/19 Rx Atorvastatin Calcium 10 Mg Tablet 10 Mg PO QHS 30 06/24/19 Rx Proair Hfa (Albuterol Sulfate) 8.5 Gm Hfa.aer.ad 2.5 Mg NEB PRN Q4HRS PRN 30 06/24/19 Rx Novolog (Insulin Aspart) 100 Unit/1 Ml Vial 50 Unit SQ TIDWMEALHC 06/19/19 Reported Tresiba Flextouch U-200 (Insulin Degludec) 200 Unit/1 Ml Insuln.pen 160 Unit SQ DAILY 06/19/19 Reported Impression . IMPRESSION: 1. Acute hypoxic respiratory failure secondary to likely biventricular heart failure. He likely has a component of cor pulmonale and has acute on chronic cor pulmonale. He reportedly has cardiomyopathy and that would be another contributing factor for his dyspnea and hypoxia. 2. Obstructive sleep apnea/suspected obesity hypoventilation syndrome. The patient never had any sleep study as in the past his insurance would not cover that. 3. Underlying morbid obesity. 4. Abnormal chest x-ray suspicious for pulmonary hypertension related to chronic hypoxia from obstructive sleep apnea/obesity hypoventilation syndrome. Plan . RECOMMENDATIONS: 1. Discussed with the patient. At this time, I would recommend continue with diuresis. 2. Monitor renal function. 3. Consider sleep study as an outpatient. He has now adequate insurance coverage. 4. Weight loss is strongly advised. 5. Xarelto per cardiology. 6. Last echo from June of this year with normal ejection fraction of 60%. 7. Follow cardiology recommendation. 8. Discussed with RN. Espinal to discharge from a pulmonary standpoint. ELVIS DUMAS MD Apr 28, 2021 10:06
[2021-04-28 10:19] VITALS: BP 125/56
--- NOTE | 2021-04-28 10:27 | NUR ---
Patient escorted out to ER entrance in wheelchair by Bonita LUNA. IV and telemonitor discontinued. Escorted out to personal vehicle. FOllow up information given.
--- NOTE | 2021-04-28 10:42 | DS ---
DATE OF DISCHARGE: 04/28/2021 PRIMARY DIAGNOSIS: Biventricular congestive heart failure. ADDITIONAL DIAGNOSES: Pulmonary hypertension, chronic obstructive pulmonary disease, diabetes, suspected severe sleep apnea. CHIEF COMPLAINT AND HISTORY OF PRESENT ILLNESS: This 55-year-old male admitted through the Emergency Room with shortness of breath and congestive heart failure on the day of admission. SUMMARY OF STAY: The patient was admitted. Cardiology and Pulmonary saw the patient. The patient is disabled and will be getting Medicare on 05/17 and will have an outpatient sleep study done at that point in time, we have been unable to do a prior because of financial concerns. He was given IV Lasix with minimal diuresis. Cardiology added metolazone with a very brisk diuresis and marked improvement in his symptomatology. He was felt he could be dismissed on the day of discharge with p.r.n. Zaroxolyn at home and was instructed that he cannot take it on a daily basis, but at most, maybe once a week or so without close monitoring. He was thus dismissed to home on the day of discharge. DISPOSITION: The patient is discharged to home. DIET: ADA, low-sodium diet. ACTIVITY: As tolerated. FOLLOWUP: Office in 1-2 weeks. DISCHARGE MEDICATIONS: Listed on the med rec and have been addressed. EUGENIO DR: Juliet TID: [id number]
--- NOTE | 2021-04-28 15:44 | NUR ---
SW following. Discussed with RN, pt from home, uses oxygen at home. Discharge order for home with self care. RN advised no SW needs.
== END 2021-04-28 10:27 | disposition home or self-care (01) | DRG 291 ==
LOC: ER 08:53 → 5 NORTH 12:43
PROVIDERS: ADMIT Family Medicine; ATTEND Family Medicine
DX: I11.0 Hypertensive heart disease with heart failure (principal); I50.33 Acute on chronic diastolic (congestive) heart failure; J96.01 Acute respiratory failure with hypoxia; Z68.43 Body mass index [BMI] 50.0-59.9, adult; I42.9 Cardiomyopathy, unspecified; E11.65 Type 2 diabetes mellitus with hyperglycemia; E66.01 Morbid (severe) obesity due to excess calories; E78.5 Hyperlipidemia, unspecified; E87.5 Hyperkalemia; G47.00 Insomnia, unspecified; G47.33 Obstructive sleep apnea (adult) (pediatric); I27.81 Cor pulmonale (chronic); I48.0 Paroxysmal atrial fibrillation; I50.82 Biventricular heart failure; J44.9 Chronic obstructive pulmonary disease, unspecified; Z79.899 Other long term (current) drug therapy; Z82.49 Family history of ischemic heart disease and other diseases of the circulatory system; Z86.16 Personal history of COVID-19; Z86.718 Personal history of other venous thrombosis and embolism; Z87.891 Personal history of nicotine dependence; G89.29 Other chronic pain; K21.9 Gastro-esophageal reflux disease without esophagitis; M19.90 Unspecified osteoarthritis, unspecified site; Z88.0 Allergy status to penicillin; Z88.8 Allergy status to other drugs, medicaments and biological substances; Z90.49 Acquired absence of other specified parts of digestive tract; I27.20 Pulmonary hypertension, unspecified
CPT/HCPCS: 36415; 71045; 80048; 80053; 82550; 82962; 83735; 83880; 84484; 85025; 87804; 90471; 90686; 93005; 94640; J1815; J1940; 99285-25; G0378; J7613

== ENCOUNTER 2021-08-12 05:54 | Inpatient (IN) | payer BC, MEDICARE ==
[~2021-08-12] VITALS: Ht 177.8 cm; Wt 187.7 kg
[~2021-08-12 05:54] MED LIST changes: +METO2.5T PO
--- NOTE | 2021-08-12 06:34 | PHYS DOC ---
Past Medical History Past Medical History: CHF, Diabetes-Type II, Hypertension Additional Past Medical Histor: BACK PAIN Past Surgical History: Tonsillectomy Smoking Status: Never Smoker Alcohol Use: Occasionally Drug Use: None General Adult EDM: Chief Complaint: SHORTNESS OF BREATH HPI: HPI: 55-year-old male past medical history of CHF and COPD, presents to the ED with complaints of worsening shortness of breath and weight gain due to swelling in his legs and abdomen for the past 2 weeks. Takes Lasix 40 mg daily, described primary care physician Dr. Hernandez. Reports his abdomen is sore and due to the fluid, has difficulties ambulating. Requires a wheelchair to get into the hospital today. No prior history of paracentesis Review of Systems: Review of Systems: Constitutional: Denies fever or chills. [] Eyes: Denies change in visual acuity. [] HENT: Denies nasal congestion or sore throat. [] Respiratory: Denies cough or hemoptysis Cardiovascular: Denies chest pain or edema. [] GI: Denies abdominal pain, nausea, vomiting, bloody stools or diarrhea. [] : Denies dysuria or hematuria Musculoskeletal: Denies back pain or joint pain. [] Integument: Denies rash or diaphoresis Neurologic: Denies headache, focal weakness or sensory changes. [] Endocrine: Denies polyuria or polydipsia. [] Lymphatic: Denies swollen glands. [] Psychiatric: Denies depression or anxiety. [] Heart Score: C/O Chest Pain: No Risk Factors: Risk Factors: DM, Current or recent (<one month) smoker, HTN, HLP, family history of CAD, obesity. Risk Scores: Score 0 - 3: 2.5% MACE over next 6 weeks - Discharge Home Score 4 - 6: 20.3% MACE over next 6 weeks - Admit for Clinical Observation Score 7 - 10: 72.7% MACE over next 6 weeks - Early Invasive Strategies Allergies: Allergies: Allergies Coded Allergies Type Severity Reaction Last Updated Verified Penicillins Allergy Intermediate Rash 06/20/19 Yes guaifenesin Allergy Intermediate 06/20/19 Yes theophylline Allergy Intermediate 06/20/19 Yes Physical Exam: PE: Constitutional: no acute distress, non-toxic appearance. HENT: Normocephalic, atraumatic, Eyes: EOMI, conjunctiva normal, no discharge. Neck: Normal range of motion, supple, Cardiovascular: S1/2 present, regular rhythm Lungs & Thorax: Speaking in full sentences, bilateral equal chest rise, no tachypnea or increased work of breathing, on 1L NC (his baseline) Abdomen: soft, no tenderness, morbid obese with very large pannus (the bulk of his weight) Skin: Warm, dry, no erythema, no rash. [] Extremities: No tenderness, no cyanosis, equal lower extremity edema Neurologic: Alert and oriented X 3, normal motor function, normal sensory function, no focal deficits noted. [] Psychologic: Affect normal, judgement normal, mood normal. [] EKG: EKG: Sinus tachycardia 110 bpm, no axis deviation, QTC 460, no T wave inversion, no ST elevation or ST depression Radiology/Procedures: Radiology/Procedures: IMAGING REPORT Signed PATIENT: LORENZO PAT ACCOUNT: [id number] : 1965 LOCATION: ER AGE: 55 SEX: M EXAM STATUS: REG ER ORD. PHYSICIAN: LC BLACK DO REASON: soa PROCEDURE: PORTABLE CHEST 1V XR CHEST 1V 08/12/2021 6:47 AM INDICATION: Shortness of air COMPARISON: 04/24/2021 TECHNIQUE: Portable frontal view of the chest is provided. FINDINGS: The cardiomediastinal silhouette is similar in appearance. Lungs are clear. There are no significant pleural effusions. There is no pulmonary vascular congestion. No pneumothorax. No suspicious osseous abnormality. IMPRESSION: There is no acute cardiopulmonary process. Electronically signed by: Gustavo Nelson MD (08/12/2021 6:57 AM) [facility] DICTATED and SIGNED BY: GUSTAVO NELSON MD DATE: 08/12/21 [id number] IMAGING REPORT Signed PATIENT: LORENZO PAT ACCOUNT: [id number] : 1965 LOCATION: ER AGE: 55 SEX: M EXAM STATUS: REG ER ORD. PHYSICIAN: LC BLACK DO REASON: soa, r/o pe PROCEDURE: CT ANGIOGRAPHY CHEST EXAMINATION: CTA CHEST CLINICAL HISTORY: Shortness of breath. Technique: Spiral CT acquisition of the chest from the thoracic inlet to the upper abdomen following IV contrast with coronal and sagittal reformatted images also provided for review. 3D maximum intensity projection images also performed. Artificial intelligence software analysis also performed utilizing [employer]. CT Dose Reduction Employed: One or more of the following individualized dose reduction techniques were utilized for this examination: 1. Automated exposure control 2. Adjustment of the mA and/or kV according to patient size 3. Use of iterative reconstruction technique. COMPARISON: Chest radiograph same day FINDINGS: Suboptimal opacification of the pulmonary arterial system limits evaluation. Pulmonary Vasculature: No evidence of main, lobar, or or definite proximal segmental pulmonary arterial thrombus. Lung Parenchyma, Pleura, and Airways: Somewhat nodular opacity with irregular/spiculated margins measuring up to 1.6 x 1.2 cm in the lateral right middle lobe (series 85 image 162). Small old calcified granulomas. Trace right pleural effusion with overlying atelectasis. Central airways patent. Lower Neck, Lymph Nodes, and Mediastinum: Visualized thyroid gland within normal limits. No mediastinal, hilar, or axillary lymphadenopathy. Heart, Pericardium, and Thoracic Vessels: Cardiac chambers normal in size. No pericardial effusion. Thoracic aorta within normal limits. No coronary artery atherosclerotic calcifications are noted, although the study is not optimized for coronary assessment. Bones and Soft Tissues: Multilevel degenerative changes in the thoracic spine. Upper Abdomen: Partially visualized mild perihepatic ascites. Old calcified granulomas in the spleen. IMPRESSION: No evidence of main, lobar, or definite proximal segmental pulmonary embolism on limited evaluation. 1.6 cm irregular focal opacity versus pulmonary nodule in the right middle lobe as described, possibly related to infectious/inflammatory process but cannot exclude a true pulmonary nodule suspicious for malignancy. Recommend comparison with old studies if available. If no old studies are available, consider follow- up CT chest in 3 months to evaluate stability and/or PET/CT or percutaneous biopsy for more immediate evaluation. Trace right pleural effusion with overlying atelectasis. Electronically signed by: Torsten Mccloud DO (08/12/2021 11:46 AM) [facility] DICTATED and SIGNED BY: TORSTEN MCCLOUD DO DATE: 08/12/21 [id number] Course & Med Decision Making: Course & Med Decision Making Pertinent Labs and Imaging studies reviewed. (See chart for details) Concern for shortness of breath in a morbid obese male with no evidence of pulmonary embolus. Was treated for COPD. Labs show stable, normocytic anemia. Patient is tachycardic and HS troponin is 24. She continues to report shortness of breath. I do suspect possible cardiac etiology. Will admit to Dr. Hernandez with cardiology consulted. Patient stable time of admission and agrees to this plan. I have spoken with the patient and/or caregivers. I have explained the patient's condition, diagnosis and treatment plan based on the information available to me at this time. I have answered the patient's and/or caregivers questions and answered any concerns. The patient and/or caregivers have as good an understanding of the patient's diagnosis, condition and treatment plan as can be expected at this point. The patient has been stabilized within the capability of the emergency department. The patient will be transported for further care and management or will be moved to an observation or inpatient service. I have communicated with the staff or medical practitioner taking over this patient's care. Dragon Disclaimer: Dragon Disclaimer: This electronic medical record was generated, in whole or in part, using a voice recognition dictation system. Departure Departure Impression: Primary Impression: Dyspnea Additional Impressions: Obesities, morbid Pulmonary nodule Disposition: ADMITTED INPATIENT Admitting Physician: Mina Hernandez Condition: STABLE Referrals: MINA HERNANDEZ MD (PCP) Scripts Azithromycin (ZITHROMAX) 250 Mg Tablet 1 PKG PO UD, #6 TAB Prov: LC BLACK DO 08/12/21 LC BLACK DO Aug 12, 2021 06:34
--- NOTE | 2021-08-12 06:59 | RAD ---
XR CHEST 1V 08/12/2021 6:47 AM INDICATION: Shortness of air COMPARISON: 04/24/2021 TECHNIQUE: Portable frontal view of the chest is provided. FINDINGS: The cardiomediastinal silhouette is similar in appearance. Lungs are clear. There are no significant pleural effusions. There is no pulmonary vascular congestion. No pneumothora x. No suspicious osseous abnormality. IMPRESSION: There is no acute cardiopulmonary process. Electronically signed by: Roxann Chau MD (08/12/2021 6:57 AM) [facility]
[2021-08-12] MEDS ORDERED: FUROSEMIDE 100 MG/10 ML VIAL. IVP ONE (07:00)
[2021-08-12 07:04] LABS: BASO % 1 % (0-3); EOS # 0.1 x10^3/uL (0.0-0.7); EOS % 1 % (0-3); HEMOGLOBIN 11.2 g/dL (13.0-17.5); LYMPH # 1.1 x10^3/uL (1.0-4.8); LYMPH % 12 % (24-48); MEAN CORPUSCULAR HEMOGLOBIN 27 pg (25-35); MEAN CORPUSCULAR HGB CONC 31 g/dL (31-37); MEAN CORPUSCULAR VOLUME 88 fL (79-100); MONO % 11 % (0-9); NEUT # 6.9 x10^3/uL (1.8-7.7); NEUT % 76 % (31-73); PLATELET COUNT 224 x10^3/uL (140-400); RED BLOOD COUNT 4.08 x10^6/uL (4.30-5.70); RED CELL DISTRIBUTION WIDTH 14.9 % (11.5-14.5); WHITE BLOOD COUNT 9.2 x10^3/uL (4.0-11.0)
[2021-08-12 07:13] LABS: CALCIUM 7.8 mg/dL (8.5-10.1); CREATININE 1.2 mg/dL (0.7-1.3); GFR 63.1; POTASSIUM 4.9 mmol/L (3.5-5.1)
[2021-08-12 07:19] LABS: ALBUMIN 3.3 g/dL (3.4-5.0); TOTAL BILIRUBIN 0.8 mg/dL (0.2-1.0); TOTAL PROTEIN 6.5 g/dL (6.4-8.2)
[2021-08-12 07:56] LABS: BACTERIA,URINE FEW /HPF (0-FEW); BILIRUBIN,URINE NEGATIVE (NEG); CLARITY,URINE HAZY; COLOR,URINE YELLOW; NITRITE,URINE NEGATIVE (NEG); PH,URINE 5.5 (<5.0-8.0); PROTEIN,URINE 30 mg/dL (NEG-TRACE); RBC,URINE RARE /HPF (0-2); UROBILINOGEN,URINE 0.2 mg/dL (0.2 mg/dL)
[2021-08-12] MEDS ORDERED: IPRATRPIUM/ALBUTEROL 0.5/2.5MG 3 ML NEBU. NEB ONE (08:45)
[2021-08-12] MEDS ORDERED: IOHEXOL 350 MG/ML 100 ML VIAL. IV ONE (10:30)
[2021-08-12] MEDS ORDERED: CONTRAST GIVEN. MC PRN (10:45)
--- NOTE | 2021-08-12 11:48 | RAD ---
EXAMINATION: CTA CHEST CLINICAL HISTORY: Shortness of breath. Technique: Spiral CT acquisition of the chest from the thoracic inlet to the upper abdomen following IV contrast with coronal and sagittal reformatted images also provided for review. 3D maximum intensi ty projection images also performed. Artificial intelligence software analysis also performed rajat Barlow. CT Dose Reduction Employed: One or more of the following individualized dose reduction techniques wer e utilized for this examination: 1. Automated exposure control 2. Adjustment of the mA and/or kV ac cording to patient size 3. Use of iterative reconstruction technique. COMPARISON: Chest radiograph same day FINDINGS: Suboptimal opacification of the pulmonary arterial system limits evaluation. Pulmonary Vasculature: No evidence of main, lobar, or or definite proximal segmental pulmonary arteri al thrombus. Lung Parenchyma, Pleura, and Airways: Somewhat nodular opacity with irregular/spiculated margins clayton uring up to 1.6 x 1.2 cm in the lateral right middle lobe (series 85 image 162). Small old calcified granulomas. Trace right pleural effusion with overlying atelectasis. Central airways patent. Lower Neck, Lymph Nodes, and Mediastinum: Visualized thyroid gland within normal limits. No mediastin al, hilar, or axillary lymphadenopathy. Heart, Pericardium, and Thoracic Vessels: Cardiac chambers normal in size. No pericardial effusion. T horacic aorta within normal limits. No coronary artery atherosclerotic calcifications are noted, alth ough the study is not optimized for coronary assessment. Bones and Soft Tissues: Multilevel degenerative changes in the thoracic spine. Upper Abdomen: Partially visualized mild perihepatic ascites. Old calcified granulomas in the spleen. IMPRESSION: No evidence of main, lobar, or definite proximal segmental pulmonary embolism on limited evaluation. 1.6 cm irregular focal opacity versus pulmonary nodule in the right middle lobe as described, possibl y related to infectious/inflammatory process but cannot exclude a true pulmonary nodule suspicious fo r malignancy. Recommend comparison with old studies if available. If no old studies are available, co nsider follow-up CT chest in 3 months to evaluate stability and/or PET/CT or percutaneous biopsy for more immediate evaluation. Trace right pleural effusion with overlying atelectasis. Electronically signed by: Torsten Araujo DO (08/12/2021 11:46 AM) [facility]
[2021-08-12] MEDS ORDERED: AZIT250T PO (13:09)
[2021-08-12 15:15] VITALS: BP 133/101
[2021-08-12] MEDS ORDERED: IPRATRPIUM/ALBUTEROL 0.5/2.5MG 3 ML NEBU. ONE (15:41)
--- NOTE | 2021-08-12 16:08 | EKG ---
[facility] [address] [place] [address] Test Date: 2021-08-12 Test Time: 06:12:54 Pat Name: ELGIN PAT Department: Room: [facility] Gender: M [employer]: : 1965 Requested By: LC BLACK Order Number: [id number] Reading MD: Elgin Huggins Measurements Intervals [place] Rate: 110 P: 0 OH: 78 QRS: 90 QRSD: 74 T: 62 QT: 336 QTc: 460 Interpretive Statements ATRIAL FIBRILLATION LOW VOLTAGE NON SPECIFIC ST-T WAVE CHANGES CONSISTENT WITH POSSIBLE OLD ANTEROSEPTAL INFARCT Electronically Signed On 08-13-2021 17:48:50 [employer] [employer] by Elgin Huggins
[2021-08-12 18:36] VITALS: BP 152/92
[2021-08-12] MEDS: LISINOPRIL 10 MG TABLET PO SCH (20:03)
[2021-08-12] MEDS: POTASSIUM CHLORIDE 10 MEQ TABLET.ER. PO SCH (20:04)
[2021-08-12] MEDS: ATORVASTATIN CALCIUM 10 MG TABLET. PO SCH (20:04)
[2021-08-12] MEDS: METOPROLOL SUCC 24HR ER 50 MG TAB.ER.24H. PO SCH (20:04)
[2021-08-12] MEDS: ALBUTEROL SULFATE 2.5 MG/3 ML NEBU. NEB PRN (20:47)
[2021-08-12] MEDS ORDERED: HYDR-2759 PO (21:16)
[2021-08-12] MEDS: HYDROcodone/APAP 5/325MG 1 TAB TABLET PO PRN (21:20)
[2021-08-12] MEDS: INSULIN LISPRO 300 UNITS/3 ML VIAL. SQ SCH (21:20)
[2021-08-12 22:45] VITALS: BP 135/73
[2021-08-13 02:25] VITALS: BP 109/52
[2021-08-13 06:40] VITALS: BP 131/83
[2021-08-13] MEDS: INSULIN LISPRO 300 UNITS/3 ML VIAL. SQ SCH ×4 (08:00→20:30)
[2021-08-13] MEDS: POTASSIUM CHLORIDE 10 MEQ TABLET.ER. PO SCH ×2 (08:13→18:02)
[2021-08-13] MEDS: ASPIRIN 325 MG TABLET PO SCH (08:14)
[2021-08-13] MEDS: LISINOPRIL 10 MG TABLET PO SCH (08:14)
[2021-08-13] MEDS: METOPROLOL SUCC 24HR ER 50 MG TAB.ER.24H. PO SCH (08:14)
[2021-08-13] MEDS: metOLazone 2.5 MG TABLET PO SCH (08:14)
[2021-08-13] MEDS ORDERED: FUROSEMIDE 40 MG TABLET. PO SCH (09:00)
[2021-08-13] MEDS ORDERED: INSULIN GLARGINE SYRINGE. SQ SCH ×2 (09:00→21:00)
--- NOTE | 2021-08-13 10:46 | PDOC ---
Provider Note Date of Service: DATE: 08/13/21 TIME: 10:45 Provider Note dictated Justifications for Admission Other Justification PEYTON JUAREZ MD Aug 13, 2021 10:46
[2021-08-13 11:00] VITALS: BP 123/79
[2021-08-13] MEDS: ALBUTEROL SULFATE 2.5 MG/3 ML NEBU. NEB PRN ×2 (11:15→21:39)
--- NOTE | 2021-08-13 13:29 | HP ---
DATE OF SERVICE: 08/13/2021 ADMIT DATE: 08/12/2021 CHIEF COMPLAINT: Shortness of breath. HISTORY OF PRESENT ILLNESS: A 55-year-old white male, a patient of Dr. Hernandez's, he has biventricular heart failure, insulin-dependent diabetes and likely undiagnosed sleep apnea with increasing shortness of breath. He denied any other specific symptoms, had of cramping in his muscles from two diuretics that he takes now. Last echocardiogram 1 year ago showed normal ejection fraction, indicating likely diastolic component of heart failure. He does not know when he saw Dr. Hernandez last and does not know his latest A1c. PAST HISTORY: High-dose insulin . ALLERGIES: No allergies known. PAST SURGICAL HISTORY: Denies any surgeries. SOCIAL HISTORY: He denies tobacco or alcohol abuse. He does "snack a lot" and likely eats a high salt diet. He is on disability and on oxygen. FAMILY HISTORY: Unremarkable. REVIEW OF SYSTEMS: Unremarkable. OBJECTIVE: ENT: All within normal limits. NECK: No bruits, nodes or masses. LUNGS: Clear without wheezing. CARDIOVASCULAR: Regular rate, heart tones distant. No murmurs heard. ABDOMEN: Massively obese, no masses or tenderness, cannot tell if he has ascites or not. EXTREMITIES: 2+ pretibial edema, mildly decreased pedal pulses. No clubbing is seen. NEUROLOGIC: Nonfocal. ASSESSMENT: Increasing dyspnea, likely multifactorial, mainly the undiagnosed sleep apnea component is most likely. He has insulin resistance with type 2 diabetes, likely a high-salt intake as well. PLAN: Ordered thyroid function, A1c, appropriate consults. He certainly needs sleep study evaluation, but he has not been able to afford that in the past. THERESA/MAX/ABEL DR: THERESA/best TID: [id number]
[2021-08-13] MEDS: FUROSEMIDE 40 MG/4 ML VIAL. IVP SCH (13:36)
[2021-08-13 15:00] VITALS: BP 108/70
--- NOTE | 2021-08-13 16:10 | PDOC2 ---
CONSULT Date of Consult Date of Consult DATE: 08/13/21 TIME: 16:04 Reason for Consult Reason for Consult: Shortness of breath Referring Physician Referring Physician: Dr. Hernandez Identification/Chief Complaint Chief Complaint Shortness of breath and lower extremity edema Source Source: Chart review, Patient History of Present Illness Reason for Visit: The patient is a 55-year-old male who was admitted through the emergency room with a history of 1 to 2 weeks of gradually increasing shortness of breath. Patient also reported increasing lower extremity edema. Initial EKG showed a probable atrial fibrillation which was rate controlled. Chest x-ray showed no acute cardiopulmonary processes. CTA of the chest showed no pulmonary emboli. It did show a 1.6 cm irregular opacity in the right middle lobe. Patient's initial troponin was 33 and 25. He has been treated with diuretics and is feeling better. He denies chest pain. Past Medical History Cardiovascular: CHF, HTN, Hyperlipidemia, Other Pulmonary: COPD, Pneumonia, Other CENTRAL NERVOUS SYSTEM: Other GI: GERD Musculoskeletal: low back pain, Osteoarthritis Endocrine: Diabetes Past Surgical History Past Surgical History: Tonsillectomy Family History Family History: Hypertension Social History No ALCOHOL: occassional Drugs: None Lives: Alone Current Problem List Problem List Problems Medical Problems: (1) Dyspnea Status: Acute (2) Obesities, morbid Status: Acute (3) Pulmonary nodule Status: Acute Current Medications Current Medications Current Medications Furosemide (Lasix) 100 mg 1X ONCE IVP Last administered on 08/12/21at 07:02; Start 08/12/21 at 07:00; Stop 08/12/21 at 07:02; Status DC Albuterol/ Ipratropium (Duoneb) 9 ml 1X ONCE NEB Last administered on 08/12/21at 08:57; Start 08/12/21 at 08:45; Stop 08/12/21 at 08:46; Status DC Iohexol (Omnipaque 350 Mg/ml) 100 ml 1X ONCE IV ; Start 08/12/21 at 10:30; Stop 08/12/21 at 10:32; Status DC Info (CONTRAST GIVEN -- Rx MONITORING) 1 each PRN DAILY PRN MC SEE COMMENTS; Start 08/12/21 at 10:45; Stop 08/14/21 at 10:44 Albuterol/ Ipratropium (Duoneb) 3 ml STK-MED ONCE .ROUTE ; Start 08/12/21 at 15:41; Stop 08/12/21 at 15:41; Status DC Albuterol Sulfate (Ventolin Neb Soln) 2.5 mg PRN Q4HRS PRN NEB WHEEZING Last administered on 08/13/21at 11:15; Start 08/12/21 at 19:30 Aspirin (Savana Aspirin) 325 mg DAILY PO Last administered on 08/13/21at 08:14; Start 08/13/21 at 09:00 Atorvastatin Calcium (Lipitor) 10 mg QHS PO Last administered on 08/12/21at 20:04; Start 08/12/21 at 21:00 Furosemide (Lasix) 40 mg DAILY PO ; Start 08/13/21 at 09:00; Stop 08/13/21 at 10:45; Status DC Lisinopril (Prinivil) 10 mg DAILY PO Last administered on 08/13/21at 08:14; Start 08/12/21 at 21:00 Metolazone (Zaroxolyn) 5 mg DAILY PO Last administered on 08/13/21at 08:14; Start 08/13/21 at 09:00 Metoprolol Succinate (Toprol Xl) 50 mg DAILY PO Last administered on 08/13/21at 08:14; Start 08/12/21 at 21:00 Potassium Chloride (Klor-Con) 10 meq BIDAFTMEAL PO Last administered on 08/13/21at 08:13; Start 08/12/21 at 21:00 Rivaroxaban (Xarelto) 20 mg DAILYWSUP PO ; Start 08/13/21 at 17:00 Insulin Human Lispro (HumaLOG) 50 units TIDWMEALHC SQ Last administered on 08/12/21at 21:20; Start 08/12/21 at 21:00; Stop 08/13/21 at 10:30; Status DC Insulin Glargine (Lantus Syringe) 160 unit DAILY SQ ; Start 08/13/21 at 09:00; Stop 08/13/21 at 11:57; Status DC Acetaminophen/ Hydrocodone Bitart (Lortab 5/325) 1 tab PRN Q4HRS PRN PO MODERATE PAIN 4-6 Last administered on 08/12/21at 21:20; Start 08/12/21 at 21:15 Insulin Human Lispro (HumaLOG) 20 units TIDWMEALHC SQ Last administered on at 13:36; Start 08/13/21 at 12:00 Insulin Glargine (Lantus Syringe) 160 unit QHS SQ ; Start 08/13/21 at 21:00 Furosemide (Lasix) 40 mg DAILY IVP Last administered on 08/13/21at 13:36; Start 08/13/21 at 14:00 Active Scripts Active Metolazone 2.5 Mg Tablet 5 Mg PO DAILY MDD 5 mg 10 Days Lasix (Furosemide) 40 Mg Tablet 1 Tab PO DAILY 30 Days Proair Hfa (Albuterol Sulfate) 8.5 Gm Hfa.aer.ad 2.5 Mg NEB PRN Q4HRS PRN 30 Days Klor-Con 10 (Potassium Chloride) 10 Meq Tablet.er 10 Meq PO BIDAFTMEAL 30 Days Xarelto (Rivaroxaban) 10 Mg Tablet 20 Mg PO DAILYWSUP 30 Days Lisinopril 10 Mg Tablet 10 Mg PO DAILY 30 Days Toprol XL (Metoprolol Succinate) 50 Mg Tab.er.24h 50 Mg PO DAILY 30 Days Atorvastatin Calcium 10 Mg Tablet 10 Mg PO QHS 30 Days Reported Hydrocodone-Acetamin 5-325 mg (Hydrocodone/Acetaminophen) 1 Each Tablet 1 Tab PO PRN Q4HRS PRN Aspirin 325 Mg Tablet 325 Mg PO DAILY Novolog (Insulin Aspart) 100 Unit/1 Ml Vial 50 Unit SQ TIDWMEALHC Tresiba Flextouch U-200 (Insulin Degludec) 200 Unit/1 Ml Insuln.pen 160 Unit SQ DAILY Allergies Allergies: Coded Allergies: Penicillins (Verified Allergy, Intermediate, Rash, 06/20/19) guaifenesin (Verified Allergy, Intermediate, 06/20/19) theophylline (Verified Allergy, Intermediate, 06/20/19) ROS Respiratory: YES: Shortness of breath, SOB with excertion Physical Exam General: mild distress HEENT: Atraumatic Lungs: Other (Mildly decreased breath sounds) Heart: Regular rate Abdomen: Normal bowel sounds Vitals VITALS Vital Signs Date Time Temp Pulse Resp B/P (MAP) Pulse Ox O2 Delivery O2 Flow Rate FiO2 08/13/21 11:17 97 Nasal Cannula 2.0 08/13/21 11:00 98.2 91 18 123/79 (94) 98.2 Labs Labs Laboratory Tests Test 08/12/21 06:50 08/12/21 07:44 08/12/21 17:27 08/12/21 18:30 White Blood Count 9.2 x10^3/uL (4.0-11.0) Red Blood Count 4.08 x10^6/uL (4.30-5.70) Hemoglobin 11.2 g/dL (13.0-17.5) Hematocrit 36.0 % (39.0-53.0) Mean Corpuscular Volume 88 fL (79-100) Mean Corpuscular Hemoglobin 27 pg (25-35) Mean Corpuscular Hemoglobin Concent 31 g/dL (31-37) Red Cell Distribution Width 14.9 % (11.5-14.5) Platelet Count 224 x10^3/uL (140-400) Neutrophils (%) (Auto) 76 % (31-73) Lymphocytes (%) (Auto) 12 % (24-48) Monocytes (%) (Auto) 11 % (0-9) Eosinophils (%) (Auto) 1 % (0-3) Basophils (%) (Auto) 1 % (0-3) Neutrophils # (Auto) 6.9 x10^3/uL (1.8-7.7) Lymphocytes # (Auto) 1.1 x10^3/uL (1.0-4.8) Monocytes # (Auto) 1.0 x10^3/uL (0.0-1.1) Eosinophils # (Auto) 0.1 x10^3/uL (0.0-0.7) Basophils # (Auto) 0.0 x10^3/uL (0.0-0.2) Sodium Level 138 mmol/L (136-145) Potassium Level 4.9 mmol/L (3.5-5.1) Chloride Level 100 mmol/L (98-107) Carbon Dioxide Level 27 mmol/L (21-32) Anion Gap 11 (6-14) Blood Urea Nitrogen 20 mg/dL (8-26) Creatinine 1.2 mg/dL (0.7-1.3) Estimated GFR (Cockcroft-Gault) 63.1 BUN/Creatinine Ratio 17 (6-20) Glucose Level 355 mg/dL (70-99) Calcium Level 7.8 mg/dL (8.5-10.1) Total Bilirubin 0.8 mg/dL (0.2-1.0) Aspartate Amino Transf (AST/SGOT) 12 U/L (15-37) Alanine Aminotransferase (ALT/SGPT) 17 U/L (16-63) Alkaline Phosphatase 84 U/L (46-116) Creatine Kinase 114 U/L (39-308) Troponin I High Sensitivity 25 ng/L (4-75) 33 ng/L (4-75) QV-Npo-Z-Type Natriuretic Peptide 2688 pg/mL (0-124) Total Protein 6.5 g/dL (6.4-8.2) Albumin 3.3 g/dL (3.4-5.0) Albumin/Globulin Ratio 1.0 (1.0-1.7) Urine Collection Type Unknown Urine Color Yellow Urine Clarity Hazy Urine pH 5.5 (<5.0-8.0) Urine Specific [place] 1.025 (1.000-1.030) Urine Protein 30 mg/dL (NEG-TRACE) Urine Glucose (UA) >=1000 mg/dL (NEG) Urine Ketones (Stick) Trace mg/dL (NEG) Urine Blood Negative (NEG) Urine Nitrite Negative (NEG) Urine Bilirubin Negative (NEG) Urine Urobilinogen Dipstick 0.2 mg/dL (0.2 mg/dL) Urine Leukocyte Esterase Negative (NEG) Urine RBC Rare /HPF (0-2) Urine WBC 1-4 /HPF (0-4) Urine Squamous Epithelial Cells Few /LPF Urine Bacteria Few /HPF (0-FEW) Glucose (Fingerstick) 327 mg/dL (70-99) Test 08/12/21 20:18 08/13/21 01:53 08/13/21 02:24 08/13/21 08:00 Glucose (Fingerstick) 298 mg/dL (70-99) 50 mg/dL (70-99) 97 mg/dL (70-99) 133 mg/dL (70-99) Test 08/13/21 11:25 08/13/21 11:37 Thyroid Stimulating Hormone (TSH) 2.245 uIU/mL (0.358-3.74) Glucose (Fingerstick) 222 mg/dL (70-99) Laboratory Tests Test 08/12/21 17:27 08/12/21 18:30 08/12/21 20:18 08/13/21 01:53 Glucose (Fingerstick) 327 mg/dL (70-99) 298 mg/dL (70-99) 50 mg/dL (70-99) Troponin I High Sensitivity 33 ng/L (4-75) Test 08/13/21 02:24 08/13/21 08:00 08/13/21 11:25 08/13/21 11:37 Glucose (Fingerstick) 97 mg/dL (70-99) 133 mg/dL (70-99) 222 mg/dL (70-99) Thyroid Stimulating Hormone (TSH) 2.245 uIU/mL (0.358-3.74) Images Images Chest x-ray with no acute changes. CTA of the chest with no evidence of pulmonary emboli. Assessment/Plan Assessment/Plan 1. Shortness of breath. Patient has a history of COPD and is being treated for it. He is feeling better. We'll continue present medications. 2. History of probable diastolic heart failure. No acute EKG changes. Troponins are normal. We'll continue on diuresis. We'll recheck an echocardiogram in the morning. 3. Atrial fibrillation. Patient today has rate controlled atrial fibrillation. He is on Xarelto. We'll continue present treatments at this time. 4. Hypertension. Controlled. Again continue present medications. 5. Diabetes mellitus. Continue present medical treatment. LORENZO ALVARENGA MD Aug 13, 2021 16:10
[2021-08-13] MEDS: RIVAROXABAN 10 MG TABLET. PO SCH (18:02)
[2021-08-13 18:38] VITALS: BP 111/74
[2021-08-13] MEDS: ATORVASTATIN CALCIUM 10 MG TABLET. PO SCH (20:20)
[2021-08-13] MEDS: HYDROcodone/APAP 5/325MG 1 TAB TABLET PO PRN (20:41)
[2021-08-13 23:00] VITALS: BP 163/76
[2021-08-14 03:10] VITALS: BP 143/80
[2021-08-14 03:10] LABS: HEMOGLOBIN A1C 12.3 % (4.8-5.6)
[2021-08-14 07:00] VITALS: BP 119/78
[2021-08-14] MEDS: INSULIN LISPRO 300 UNITS/3 ML VIAL. SQ SCH ×3 (08:00→18:09)
[2021-08-14] MEDS: ALBUTEROL SULFATE 2.5 MG/3 ML NEBU. NEB PRN ×3 (08:07→20:00)
[2021-08-14] MEDS: ASPIRIN 325 MG TABLET PO SCH (08:19)
[2021-08-14] MEDS: metOLazone 2.5 MG TABLET PO SCH ×2 (08:20→18:01)
[2021-08-14] MEDS: FUROSEMIDE 40 MG/4 ML VIAL. IVP SCH ×2 (08:20→18:02)
[2021-08-14] MEDS: POTASSIUM CHLORIDE 10 MEQ TABLET.ER. PO SCH ×2 (08:20→18:12)
[2021-08-14] MEDS: LISINOPRIL 10 MG TABLET PO SCH (08:21)
[2021-08-14] MEDS: METOPROLOL SUCC 24HR ER 50 MG TAB.ER.24H. PO SCH (08:22)
--- NOTE | 2021-08-14 08:24 | PN ---
DATE: 08/14/2021 DAILY PROGRESS NOTE LOCATION: He is in room 668. SUBJECTIVE: This 55-year-old male with history of biventricular heart failure, was admitted through the Emergency Room with increasing shortness of breath and swelling. This morning, he states minimal improvement, gets shortness of breath with even trying to stand to transfer from bed to chair. Cardiology and Pulmonary are following along. OBJECTIVE: VITAL SIGNS: Stable. He is afebrile. He is awake and alert. O2 is present. Sugars are somewhat better since admission and did have some hypoglycemia and insulin doses were decreased, likely due to change in diet from home. CHEST: Decreased breath sounds. HEART: Irregularly irregular, rate in 70s. ABDOMEN: Obese, benign. EXTREMITIES: 1+ edema. NEUROLOGIC: He is intact. ASSESSMENT: 1. Shortness of breath, felt to be probably pulmonary as well as cardiac related and we will let them try to sort it out. 2. Diabetes with poor control with hemoglobin A1c checked and over 12. PLAN: Continue diuresis. Follow Pulmonary and Cardiac leads. We will decrease his Lantus while he is here in the hospital. ALEXIA DR: Juliet TID: [id number]
[2021-08-14 10:31] VITALS: BP 97/68
--- NOTE | 2021-08-14 10:51 | PDOC ---
HARVEY WONG CAR REPAIRER 08/14/21 1051: CARDIO Progress Notes Date and Time Date of Service 08/14/21 Time of Evaluation 1050 Subjective Subjective: Other (still short of breath, feels full of fluid ) Vitals Vitals Vital Signs Date Time Temp Pulse Resp B/P (MAP) Pulse Ox O2 Delivery O2 Flow Rate FiO2 08/14/21 10:31 97.8 91 18 97/68 (78) 97 Nasal Cannula 2.0 97.8 Weight Weight [ ] Input and Output Intake and Output Intake and Output 08/14/21 07:00 Intake Total 1060 ml Output Total 500 ml Balance 560 ml Intake Oral 1060 ml Output Urine Total 500 ml Laboratory Labs Laboratory Tests Test 08/13/21 11:25 08/13/21 11:37 08/13/21 16:44 08/13/21 20:22 Hemoglobin A1c 12.3 % (4.8-5.6) Thyroid Stimulating Hormone (TSH) 2.245 uIU/mL (0.358-3.74) Glucose (Fingerstick) 222 mg/dL (70-99) 175 mg/dL (70-99) 191 mg/dL (70-99) Test 08/14/21 07:38 Glucose (Fingerstick) 209 mg/dL (70-99) Physical Exam HEENT: Neck Supple W Full Motion Chest: Symmetric LUNGS: Other (diminished ) Heart: irregularly irregular (AFIB ) Abdomen: Other (obese) Extremities: Other (2+ bilateral LE edema. chronic venous stasis changes bilateral LE) Neurology: alert, oriented, follow commands Assessment Assessment 1. Acute respiratory failure, multifactorial with cor pulmonale, CHF, probable LAURA. Echo 07/07 with PAP 47 mmHg. 2. Acute on chronic diastolic CHF. Likely induced by ^ fluid intake secondary to uncontrolled DM. Echo 07/07 showed LVEF 60-65%. Improved s/p diuresis 3. PAFIB; presently AFIB, rate controlled overall. 4. Hypertension; controlled 5. Morbid obesity with probable LAURA 6. Diabetes, II; uncontrolled. A1C 12.3. as per IM 7. HLP: statin 8. Noncompliance; has failed follow up in our office and outpatient testing as scheduled Recommendations Needs further fluid offloading Increase IV Lasix therapy to BID Add metolazone Repeat labs Daily standing wt Discussed/encouraged 2000cc FR and 2 Gm Na diet Encouraged diabetes control and weight loss Continue metoprolol for rate control Xarelto for stroke prophylaxis Needs outpatient sleep study. Consider outpatient CV if he remains in AFIB Supportive care Justicifation of Admission Dx: Justifications for Admission: Justification of Admission Dx: Yes TINY CHURCH MD 08/14/21 1548: CARDIO Progress Notes Assessment Assessment Patient seen and examined. Agree with CANNED FOOD RECONDITIONING INSPECTOR's assessment plan. Acute on chronic diastolic heart failure improving with diuresis. Agree with increasing Lasix dose and adding metolazone. Atrial fibrillation rate well controlled. Continue Xarelto for stroke prophylaxis. We will consider outpatient cardioversion if he continues to be in atrial fibrillation HARVEY WONG APRN Aug 14, 2021 10:51 TINY CHURCH MD Aug 14, 2021 15:48
--- NOTE | 2021-08-14 12:13 | NUR ---
SS following for discharge planning. SS reviewed pt chart and discussed with pt RN. Pt is from home with spouse and is currently on room air. Cardiology following. Pt on IV Lasix. Discharge plan is currently to home when medically ready for discharge. SS will continue to follow for discharge planning.
[2021-08-14 15:00] VITALS: BP 123/67
[2021-08-14] MEDS ORDERED: PERFLUTREN PROTEIN-A MICROSPHR 0.22 MG/ML 3 ML VIAL. IV ONE ×2 (15:07→15:30)
--- NOTE | 2021-08-14 15:53 | PDOC ---
PULMONARY PROGRESS NOTES DATE: 08/14/21 TIME: 15:52 Vitals Vital Signs Date Time Temp Pulse Resp B/P (MAP) Pulse Ox O2 Delivery O2 Flow Rate FiO2 08/14/21 15:00 97.8 97 22 123/67 (85) 98 Nasal Cannula 2.0 97.8 General: Alert, Oriented X4, No acute distress HEENT: Other Lungs: Clear Cardiovascular: S1, S2 Abdomen: Soft, Non-tender, Other Extremities: Other Labs Laboratory Tests Test 08/12/21 17:27 08/12/21 18:30 08/12/21 20:18 08/13/21 01:53 Glucose (Fingerstick) 327 mg/dL (70-99) 298 mg/dL (70-99) 50 mg/dL (70-99) Troponin I High Sensitivity 33 ng/L (4-75) Test 08/13/21 02:24 08/13/21 08:00 08/13/21 11:25 08/13/21 11:37 Glucose (Fingerstick) 97 mg/dL (70-99) 133 mg/dL (70-99) 222 mg/dL (70-99) Hemoglobin A1c 12.3 % (4.8-5.6) Thyroid Stimulating Hormone (TSH) 2.245 uIU/mL (0.358-3.74) Test 08/13/21 16:44 08/13/21 20:22 08/14/21 07:38 08/14/21 11:44 Glucose (Fingerstick) 175 mg/dL (70-99) 191 mg/dL (70-99) 209 mg/dL (70-99) 238 mg/dL (70-99) Laboratory Tests Test 08/13/21 16:44 08/13/21 20:22 08/14/21 07:38 08/14/21 11:44 Glucose (Fingerstick) 175 mg/dL (70-99) 191 mg/dL (70-99) 209 mg/dL (70-99) 238 mg/dL (70-99) Medications Active Scripts Medications Dose Route/Sig Max Daily Dose Days Date Category Hydrocodone-Acetamin 5-325 mg (Hydrocodone/Acetaminophen) 1 Each Tablet 1 Tab PO PRN Q4HRS PRN 08/12/21 Reported Metolazone 2.5 Mg Tablet 5 Mg PO DAILY MDD 5 mg 10 04/28/21 Rx Lasix (Furosemide) 40 Mg Tablet 1 Tab PO DAILY 30 04/28/21 Rx Proair Hfa (Albuterol Sulfate) 8.5 Gm Hfa.aer.ad 2.5 Mg NEB PRN Q4HRS PRN 30 04/28/21 Rx Klor-Con 10 (Potassium Chloride) 10 Meq Tablet.er 10 Meq PO BIDAFTMEAL 30 12/14/20 Rx Xarelto (Rivaroxaban) 10 Mg Tablet 20 Mg PO DAILYWSUP 30 12/14/20 Rx Aspirin 325 Mg Tablet 325 Mg PO DAILY 06/30/20 Reported Lisinopril 10 Mg Tablet 10 Mg PO DAILY 30 06/24/19 Rx Toprol XL (Metoprolol Succinate) 50 Mg Tab.er.24h 50 Mg PO DAILY 30 06/24/19 Rx Atorvastatin Calcium 10 Mg Tablet 10 Mg PO QHS 30 06/24/19 Rx Novolog (Insulin Aspart) 100 Unit/1 Ml Vial 50 Unit SQ TIDWMEALHC 06/19/19 Reported Tresiba Flextouch U-200 (Insulin Degludec) 200 Unit/1 Ml Insuln.pen 160 Unit SQ DAILY 06/19/19 Reported Impression . Full consult dictated Abnormal CT chest revealing right middle lobe opacity Tobacco dependence in remission Acute on chronic cor pulmonale RAMANDEEP VO MD Aug 14, 2021 15:53
[2021-08-14 17:39] LABS: CALCIUM 7.7 mg/dL (8.5-10.1); CREATININE 1.4 mg/dL (0.7-1.3); GFR 52.8; MAGNESIUM 1.7 mg/dL (1.8-2.4); POTASSIUM 4.8 mmol/L (3.5-5.1)
[2021-08-14] MEDS: RIVAROXABAN 10 MG TABLET. PO SCH (18:01)
--- NOTE | 2021-08-14 18:33 | NUR ---
9668 Message was left to call Dara when labs come back. Labs came back at 1745. call civil engineering design draftsperson. Dr. Spear, gave him the labs, he said it was ok to give patient diuretic
[2021-08-14 19:45] VITALS: BP 93/67
--- NOTE | 2021-08-14 20:32 | CONS ---
DATE OF CONSULTATION: 08/14/2021 ATTENDING PHYSICIAN: Victor Hugo Trevizo MD CONSULTING PHYSICIAN: Keaton Almaraz MD REASON FOR CONSULTATION: The patient is seen in pulmonary consultation at the request of Dr. Trevizo for increasing shortness of air. HISTORY OF PRESENT ILLNESS: The patient is a 55-year-old patient of Dr. Hernandez who was seen in the past for acute on chronic biventricular heart failure. The patient presented with increasing shortness of breath, unable to breathe. He has a large pannus. He states that is when he stands up, he is unable to walk for a prolonged period of time. He smoked at one time, quit approximately 6 years ago. Part of his workup included a CT of the chest for PE protocol. There was no evidence of central pulmonary emboli. There was at 1 cm irregular focal opacity in the right middle lobe. I was asked to see him in consultation. The patient denies fever or chills. No productive cough, no hemoptysis. PAST MEDICAL HISTORY: Severe morbid obesity, BMI of 64, chronic cor pulmonale, hypertension, hyperlipidemia, cardiomyopathy, AFib, COPD, tobacco dependence in remission, obstructive sleep apnea. PAST SURGICAL HISTORY: Tonsillectomy. FAMILY HISTORY: Hypertension. SOCIAL HISTORY: He quit tobacco approximately 6 years ago. REVIEW OF SYSTEMS: As indicated above, otherwise other systems were reviewed and negative. CURRENT MEDICATIONS: List was reviewed. The patient is being diuresed. PHYSICAL EXAMINATION: GENERAL: Morbid obese individual in no respiratory distress, sitting in a chair, currently on 2 liters. NECK: Jugular venous distention could not be assessed secondary to body habitus. CHEST: Full expansion. LUNGS: Poor flow. CARDIOVASCULAR: Distant heart sounds. ABDOMEN: Large pannus. EXTREMITIES: 1+ edema. NEUROLOGIC: The patient was awake, alert, following commands, sitting up in a chair, moving all extremities. A detailed neuro exam was not performed. LABORATORY DATA: White count was 9.2, hemoglobin and hematocrit were noted. BUN and creatinine was noted. UA was noted. Labs and chest x-ray as indicated above. IMPRESSION: 1. Abnormal CT chest revealing a 1.6 irregular foci opacity in the right lower lobe. 2. Tobacco dependence, quit 6 years ago. 3. Morbid obesity, BMI of 61. 4. Acute on chronic diastolic heart failure. 5. Atrial fibrillation. 6. Hypertension. 7. Diabetes. 8. Chronic obstructive pulmonary disease. PLAN: 1. I have reviewed the CT chest. Recommend follow up as an outpatient with either repeat CT in 2 months with possible PET scan. 2. Diurese per Cardiology. 3. Continue oxygen supplementation. 4. Treat obstructive sleep apnea. MELANIE/CHENTE DR: Leigh TID: [id number]
[2021-08-14] MEDS: ATORVASTATIN CALCIUM 10 MG TABLET. PO SCH (20:52)
[2021-08-14] MEDS: INSULIN GLARGINE SYRINGE. SQ SCH (22:58)
[2021-08-14] MEDS: HYDROcodone/APAP 5/325MG 1 TAB TABLET PO PRN (23:04)
[2021-08-14 23:20] VITALS: BP 142/87
[2021-08-15 03:20] VITALS: BP 122/81
[2021-08-15 07:00] VITALS: BP 109/72
--- NOTE | 2021-08-15 08:01 | PDOC ---
HARVEY WONG IMPREGNATOR ELECTROLYTIC CAPACITORS 08/15/21 0800: CARDIO Progress Notes Date and Time Date of Service 08/15/20 Time of Evaluation 1145 Subjective Subjective: No Chest Pain, No Palpitations, No Dizziness, Other (still short of breath, especially with exertion ) Vitals Vitals Vital Signs Date Time Temp Pulse Resp B/P (MAP) Pulse Ox O2 Delivery O2 Flow Rate FiO2 08/15/21 03:20 98.2 85 22 122/81 (95) 93 Nasal Cannula 2.0 98.2 Weight Weight [ ] Input and Output Intake and Output Intake and Output 08/15/21 07:00 Intake Total 1550 ml Balance 1550 ml Intake Oral 1550 ml # Voids 2 Laboratory Labs Laboratory Tests Test 08/14/21 11:44 08/14/21 16:58 08/14/21 17:10 08/14/21 21:03 Glucose (Fingerstick) 238 mg/dL (70-99) 147 mg/dL (70-99) 165 mg/dL (70-99) Sodium Level 136 mmol/L (136-145) Potassium Level 4.8 mmol/L (3.5-5.1) Chloride Level 98 mmol/L (98-107) Carbon Dioxide Level 28 mmol/L (21-32) Anion Gap 10 (6-14) Blood Urea Nitrogen 26 mg/dL (8-26) Creatinine 1.4 mg/dL (0.7-1.3) Estimated GFR (Cockcroft-Gault) 52.8 Glucose Level 146 mg/dL (70-99) Calcium Level 7.7 mg/dL (8.5-10.1) Magnesium Level 1.7 mg/dL (1.8-2.4) Test 08/15/21 07:24 Glucose (Fingerstick) 191 mg/dL (70-99) Physical Exam HEENT: Neck Supple W Full Motion Chest: Symmetric LUNGS: Other (diminished ) Heart: irregularly irregular (AFIB ) Abdomen: Other (obese, ascites ) Extremities: Other (2+ bilateral LE edema. chronic venous stasis changes bilateral LE) Neurology: alert, oriented, follow commands Assessment Assessment 1. Acute respiratory failure, multifactorial with cor pulmonale, CHF, probable LAURA. Echo 07/07 with PAP 47 mmHg. 2. Acute on chronic diastolic CHF. Poor dietary compliance. Echo 07/07 showed LVEF 60-65%. Improving with diuresis 3. PAFIB; presently AFIB, rate controlled overall. 4. Hypertension; controlled 5. Morbid obesity with probable LAURA 6. Diabetes, II; uncontrolled. A1C 12.3. as per IM 7. HLP: statin 8. Noncompliance; has failed follow up in our office and outpatient testing as scheduled Recommendations Continue Lasix, metolazone Monitor renal function Daily standing wt. Accurate I and O. D/w RN 2000cc FR and 2 Gm Na diet Reinforced importance of diabetes control and weight loss Continue metoprolol for rate control Xarelto for stroke prophylaxis Needs outpatient sleep study. Consider outpatient CV if he remains in AFIB Supportive care Justicifation of Admission Dx: Justifications for Admission: Justification of Admission Dx: Yes TINY CHURCH MD 08/15/21 2017: CARDIO Progress Notes Assessment Assessment Patient seen and examined. Agree with L D RN's assessment plan. Acute on chronic diastolic heart failure improving with diuresis with lasix and metolazone Atrial fibrillation rate well controlled. Continue Xarelto for stroke prophylaxis. We will consider outpatient cardioversion if he continues to be in atrial fibrillation HARVEY WONG APRN Aug 15, 2021 08:00 TINY CHURCH MD Aug 15, 2021 20:17
--- NOTE | 2021-08-15 08:01 | PN ---
DATE: 08/15/2021 LOCATION: He is in room 668. SUBJECTIVE: This 55-year-old male remains hospitalized, shortness of breath and congestive heart failure with cor pulmonale. He is showing daily minimal improvement. He is still quite short of breath going to the bathroom or moving around at all and states that this is not still at his baseline from 3-4 weeks ago. Cardiology, Pulmonary are following with help appreciated. OBJECTIVE: VITAL SIGNS: Stable. He is afebrile. GENERAL: He is awake and alert. Diuretics were increased yesterday. Sugars are fair. CHEST: Reveals decreased breath sounds. HEART: Irregularly irregular with controlled rate. ABDOMEN: Obese and benign. EXTREMITIES: 1+ edema. He has extreme dryness of the bottom of his feet with cracking, we will try the lotion for the same. NEUROLOGIC: He is intact. ASSESSMENT: 1. Shortness of breath, fluid overload improving. 2. Diabetes with poor control evidenced by A1c, but much better here. 3. Dry feet. PLAN: Try Lac-Hydrin if available for the feet. Continue diuresis and try to get the patient back to baseline prior to discharge. Outpatient sleep study has been difficult to get due to cost. NIMCO DR: Juliet TID: [id number]
[2021-08-15] MEDS: metOLazone 2.5 MG TABLET PO SCH ×2 (08:43→09:00)
[2021-08-15] MEDS: LISINOPRIL 10 MG TABLET PO SCH (08:43)
[2021-08-15] MEDS: ASPIRIN 325 MG TABLET PO SCH (08:43)
[2021-08-15] MEDS: METOPROLOL SUCC 24HR ER 50 MG TAB.ER.24H. PO SCH (08:43)
[2021-08-15] MEDS: POTASSIUM CHLORIDE 10 MEQ TABLET.ER. PO SCH ×2 (08:46→17:40)
[2021-08-15] MEDS: FUROSEMIDE 40 MG/4 ML VIAL. IVP SCH ×2 (08:47→15:27)
[2021-08-15 08:53] LABS: CREATININE 1.4 mg/dL (0.7-1.3); GFR 52.8; POTASSIUM 4.4 mmol/L (3.5-5.1)
[2021-08-15] MEDS: INSULIN LISPRO 300 UNITS/3 ML VIAL. SQ SCH ×3 (08:57→16:30)
[2021-08-15] MEDS: AMMONIUM LACTATE 12% TOPICAL LOTION 225GM BOTTLE. TP SCH ×2 (08:58→20:57)
--- NOTE | 2021-08-15 10:49 | PDOC ---
PULMONARY PROGRESS NOTES DATE: 08/15/21 TIME: 10:47 Subjective The patient was lying in bed this morning, in a pleasant mood, reports slight SOA, denies new cough Currently on 2L NC; baseline 1-3L at home Discussed need for CT, Sleep study, weight loss Vitals Vital Signs Date Time Temp Pulse Resp B/P (MAP) Pulse Ox O2 Delivery O2 Flow Rate FiO2 08/15/21 08:43 85 122/81 08/15/21 08:00 Nasal Cannula 2.0 08/15/21 07:00 97.5 18 95 97.5 General: Alert, Oriented X4, No acute distress HEENT: Other Lungs: Clear Cardiovascular: S1, S2 Abdomen: Soft, Non-tender, Other Extremities: Other Labs Laboratory Tests Test 08/13/21 11:25 08/13/21 11:37 08/13/21 16:44 08/13/21 20:22 Hemoglobin A1c 12.3 % (4.8-5.6) Thyroid Stimulating Hormone (TSH) 2.245 uIU/mL (0.358-3.74) Glucose (Fingerstick) 222 mg/dL (70-99) 175 mg/dL (70-99) 191 mg/dL (70-99) Test 08/14/21 07:38 08/14/21 11:44 08/14/21 16:58 08/14/21 17:10 Glucose (Fingerstick) 209 mg/dL (70-99) 238 mg/dL (70-99) 147 mg/dL (70-99) Sodium Level 136 mmol/L (136-145) Potassium Level 4.8 mmol/L (3.5-5.1) Chloride Level 98 mmol/L (98-107) Carbon Dioxide Level 28 mmol/L (21-32) Anion Gap 10 (6-14) Blood Urea Nitrogen 26 mg/dL (8-26) Creatinine 1.4 mg/dL (0.7-1.3) Estimated GFR (Cockcroft-Gault) 52.8 Glucose Level 146 mg/dL (70-99) Calcium Level 7.7 mg/dL (8.5-10.1) Magnesium Level 1.7 mg/dL (1.8-2.4) Test 08/14/21 21:03 08/15/21 07:24 08/15/21 07:35 Glucose (Fingerstick) 165 mg/dL (70-99) 191 mg/dL (70-99) Sodium Level 135 mmol/L (136-145) Potassium Level 4.4 mmol/L (3.5-5.1) Chloride Level 97 mmol/L (98-107) Carbon Dioxide Level 32 mmol/L (21-32) Anion Gap 6 (6-14) Blood Urea Nitrogen 27 mg/dL (8-26) Creatinine 1.4 mg/dL (0.7-1.3) Estimated GFR (Cockcroft-Gault) 52.8 Glucose Level 198 mg/dL (70-99) Calcium Level 8.0 mg/dL (8.5-10.1) Laboratory Tests Test 08/14/21 11:44 08/14/21 16:58 08/14/21 17:10 08/14/21 21:03 Glucose (Fingerstick) 238 mg/dL (70-99) 147 mg/dL (70-99) 165 mg/dL (70-99) Sodium Level 136 mmol/L (136-145) Potassium Level 4.8 mmol/L (3.5-5.1) Chloride Level 98 mmol/L (98-107) Carbon Dioxide Level 28 mmol/L (21-32) Anion Gap 10 (6-14) Blood Urea Nitrogen 26 mg/dL (8-26) Creatinine 1.4 mg/dL (0.7-1.3) Estimated GFR (Cockcroft-Gault) 52.8 Glucose Level 146 mg/dL (70-99) Calcium Level 7.7 mg/dL (8.5-10.1) Magnesium Level 1.7 mg/dL (1.8-2.4) Test 08/15/21 07:24 08/15/21 07:35 Glucose (Fingerstick) 191 mg/dL (70-99) Sodium Level 135 mmol/L (136-145) Potassium Level 4.4 mmol/L (3.5-5.1) Chloride Level 97 mmol/L (98-107) Carbon Dioxide Level 32 mmol/L (21-32) Anion Gap 6 (6-14) Blood Urea Nitrogen 27 mg/dL (8-26) Creatinine 1.4 mg/dL (0.7-1.3) Estimated GFR (Cockcroft-Gault) 52.8 Glucose Level 198 mg/dL (70-99) Calcium Level 8.0 mg/dL (8.5-10.1) Medications Active Scripts Medications Dose Route/Sig Max Daily Dose Days Date Category Hydrocodone-Acetamin 5-325 mg (Hydrocodone/Acetaminophen) 1 Each Tablet 1 Tab PO PRN Q4HRS PRN 08/12/21 Reported Metolazone 2.5 Mg Tablet 5 Mg PO DAILY MDD 5 mg 10 04/28/21 Rx Lasix (Furosemide) 40 Mg Tablet 1 Tab PO DAILY 30 04/28/21 Rx Proair Hfa (Albuterol Sulfate) 8.5 Gm Hfa.aer.ad 2.5 Mg NEB PRN Q4HRS PRN 30 04/28/21 Rx Klor-Con 10 (Potassium Chloride) 10 Meq Tablet.er 10 Meq PO BIDAFTMEAL 30 12/14/20 Rx Xarelto (Rivaroxaban) 10 Mg Tablet 20 Mg PO DAILYWSUP 30 12/14/20 Rx Aspirin 325 Mg Tablet 325 Mg PO DAILY 06/30/20 Reported Lisinopril 10 Mg Tablet 10 Mg PO DAILY 30 06/24/19 Rx Toprol XL (Metoprolol Succinate) 50 Mg Tab.er.24h 50 Mg PO DAILY 30 06/24/19 Rx Atorvastatin Calcium 10 Mg Tablet 10 Mg PO QHS 30 06/24/19 Rx Novolog (Insulin Aspart) 100 Unit/1 Ml Vial 50 Unit SQ TIDWMEALHC 06/19/19 Reported Tresiba Flextouch U-200 (Insulin Degludec) 200 Unit/1 Ml Insuln.pen 160 Unit SQ DAILY 06/19/19 Reported Impression . Abnormal CT chest revealing irregular 1.6 cm right middle lobe opacity. Inflammatory versus neoplastic. Tobacco dependence in remission Acute on chronic cor pulmonale Cardiomyopathy with an EF of 35%. Plan . Updated 08/15 Continue O2 supplementation to keep O2 above 90% Encourage pulmonary hygiene Continue diurese per Cardiology Follow up CT in 2 months; see in office Sleep study outpatient PLAN 1. I have reviewed the CT chest. Recommend follow up as an outpatient with either repeat CT in 2 months with possible PET scan. 2. Diurese per Cardiology. 3. Continue oxygen supplementation. 4. Treat obstructive sleep apnea. ELVIS DUMAS MD Aug 15, 2021 10:49
[2021-08-15 11:00] VITALS: BP 106/64
[2021-08-15] MEDS: ALBUTEROL SULFATE 2.5 MG/3 ML NEBU. NEB PRN ×2 (11:20→20:33)
--- NOTE | 2021-08-15 14:42 | NUR ---
SS following up with discharge planning. SS reviewed pt chart and discussed with pt RN. Pt is currently requiring oxygen at two liters nasal canula. Cardiology and Pulmonology following. Pt on IV Lasix. SS will continue to follow for discharge planning.
[2021-08-15] MEDS: RIVAROXABAN 10 MG TABLET. PO SCH (17:40)
[2021-08-15 19:30] VITALS: BP 121/65
[2021-08-15] MEDS: ATORVASTATIN CALCIUM 10 MG TABLET. PO SCH (20:55)
[2021-08-15] MEDS: HYDROcodone/APAP 5/325MG 1 TAB TABLET PO PRN (20:56)
[2021-08-15] MEDS: INSULIN GLARGINE SYRINGE. SQ SCH (20:57)
[2021-08-15 23:30] VITALS: BP 128/77
[2021-08-16 03:40] VITALS: BP 110/69
[2021-08-16] MEDS: ALBUTEROL SULFATE 2.5 MG/3 ML NEBU. NEB PRN ×3 (04:42→22:24)
[2021-08-16 07:00] VITALS: BP 148/89
--- NOTE | 2021-08-16 08:06 | PN ---
DATE: 08/16/2021 DAILY PROGRESS NOTE LOCATION: He is in room 668. SUBJECTIVE: This 55-year-old male remains hospitalized with shortness of breath and congestive heart failure with cor pulmonale. He is showing very slow improvement with diuresis. He is now able to stand without being extremely short of breath, but is still quite short of breath trying to get to the bathroom. Cardiology, Pulmonary are following and he has ongoing diuresis. OBJECTIVE: VITAL SIGNS: Stable. He is awake and alert. Output is greater than intake. On the standing scale shows decreased weight, but is being compared to bed scales. CHEST: Decreased breath sounds. HEART: Irregularly irregular with controlled rate. ABDOMEN: Obese and benign. EXTREMITIES: 1+ edema. NEUROLOGIC: He has intact sensation. IMPRESSION: 1. Shortness of breath secondary to fluid overload with slow improvement with diuresis due to acute on chronic cor pulmonale. 2. Abnormal CT chest revealing right middle lobe opacity. 3. Diabetes with variable blood sugars, but much improved from admission. PLAN: Continue diuresis. Point of patient's symptoms improved. He needs outpatient sleep study. He also should be considered for bariatric surgery with all of his comorbidities. RACHEL/CHENTE DR: Juliet TID: [id number]
[2021-08-16] MEDS: POTASSIUM CHLORIDE 10 MEQ TABLET.ER. PO SCH ×2 (08:37→17:57)
[2021-08-16] MEDS: ASPIRIN 325 MG TABLET PO SCH (08:37)
[2021-08-16] MEDS: LISINOPRIL 10 MG TABLET PO SCH (08:37)
[2021-08-16] MEDS: FUROSEMIDE 40 MG/4 ML VIAL. IVP SCH ×2 (08:38→14:13)
[2021-08-16] MEDS: metOLazone 2.5 MG TABLET PO SCH (08:38)
[2021-08-16] MEDS: METOPROLOL SUCC 24HR ER 50 MG TAB.ER.24H. PO SCH (08:38)
[2021-08-16] MEDS: INSULIN LISPRO 300 UNITS/3 ML VIAL. SQ SCH ×3 (08:39→16:30)
[2021-08-16] MEDS: AMMONIUM LACTATE 12% TOPICAL LOTION 225GM BOTTLE. TP SCH ×2 (08:39→20:45)
[2021-08-16 10:39] VITALS: BP 134/74
--- NOTE | 2021-08-16 11:17 | PDOC ---
HARVEY WONG BIG DATA SOFTWARE ENGINEER 08/16/21 1117: CARDIO Progress Notes Date and Time Date of Service 08/16/21 Time of Evaluation 1115 Subjective Subjective: No Chest Pain, No Palpitations, No Dizziness, Other (abdomen with less edema ) Vitals Vitals Vital Signs Date Time Temp Pulse Resp B/P (MAP) Pulse Ox O2 Delivery O2 Flow Rate FiO2 08/16/21 10:39 98.2 86 20 134/74 (94) 98 Nasal Cannula 2.0 98.2 Weight Weight [ ] Input and Output Intake and Output Intake and Output 08/16/21 07:00 Intake Total 1920 ml Output Total 3975 ml Balance -2055 ml Intake Oral 1920 ml Output Urine Total 3975 ml Laboratory Labs Laboratory Tests Test 08/15/21 17:41 08/15/21 20:37 08/16/21 03:42 08/16/21 07:50 Glucose (Fingerstick) 112 mg/dL (70-99) 182 mg/dL (70-99) 177 mg/dL (70-99) 221 mg/dL (70-99) Physical Exam HEENT: Neck Supple W Full Motion Chest: Symmetric LUNGS: Other (diminished ) Heart: irregularly irregular (AFIB ) Abdomen: Other (obese, ascites ) Extremities: Other (2+ bilateral LE edema. chronic venous stasis changes bilateral LE) Neurology: alert, oriented, follow commands Assessment Assessment 1. Acute respiratory failure, multifactorial with cor pulmonale, CHF, probable LAURA. Echo 07/07 with PAP 47 mmHg. 2. Acute on chronic diastolic CHF. Poor dietary compliance. Echo 07/07 showed LVEF 60-65%. Improving with diuresis 3. PAFIB; presently AFIB, rate controlled overall. 4. Hypertension; controlled 5. Morbid obesity with probable LAURA 6. Diabetes, II; uncontrolled. A1C 12.3. as per IM 7. HLP: statin 8. Noncompliance; has failed follow up in our office and outpatient testing as scheduled Recommendations Continue Lasix, metolazone Am labs Daily standing wt. Accurate I and O. D/w RN 2000cc FR and 2 Gm Na diet Reinforced importance of diabetes control and weight loss Continue metoprolol for rate control Xarelto for stroke prophylaxis Needs outpatient sleep study. Consider outpatient CV if he remains in AFIB Supportive care Justicifation of Admission Dx: Justifications for Admission: Justification of Admission Dx: Yes TINY CHURCH MD 08/16/211: CARDIO Progress Notes Assessment Assessment Patient seen and examined. Agree with [facility]'s assessment plan. Acute on chronic diastolic heart failure improving with diuresis with lasix and metolazone Atrial fibrillation rate well controlled. Continue Xarelto for stroke prophylaxis. We will consider outpatient cardioversion if he continues to be in atrial fibrillation HARVEY WONG APRN Aug 16, 2021 11:17 TINY CHURCH MD Aug 16, 2021 21:51
--- NOTE | 2021-08-16 11:57 | PDOC ---
PULMONARY PROGRESS NOTES DATE: 08/16/21 TIME: 11:54 Subjective Patient clinically feels better. Feels some tightness in the abdomen. Currently on 2L NC; baseline 1-3L at home Vitals Vital Signs Date Time Temp Pulse Resp B/P (MAP) Pulse Ox O2 Delivery O2 Flow Rate FiO2 08/16/21 10:39 98.2 86 20 134/74 (94) 98 Nasal Cannula 2.0 98.2 General: Alert, Oriented X4, No acute distress Lungs: Clear Cardiovascular: S1, S2 Abdomen: Soft, Non-tender, Other (Markedly obese) Extremities: Other (2+ pitting edema.) Labs Laboratory Tests Test 08/14/21 16:58 08/14/21 17:10 08/14/21 21:03 08/15/21 07:24 Glucose (Fingerstick) 147 mg/dL (70-99) 165 mg/dL (70-99) 191 mg/dL (70-99) Sodium Level 136 mmol/L (136-145) Potassium Level 4.8 mmol/L (3.5-5.1) Chloride Level 98 mmol/L (98-107) Carbon Dioxide Level 28 mmol/L (21-32) Anion Gap 10 (6-14) Blood Urea Nitrogen 26 mg/dL (8-26) Creatinine 1.4 mg/dL (0.7-1.3) Estimated GFR (Cockcroft-Gault) 52.8 Glucose Level 146 mg/dL (70-99) Calcium Level 7.7 mg/dL (8.5-10.1) Magnesium Level 1.7 mg/dL (1.8-2.4) Test 08/15/21 07:35 08/15/21 10:57 08/15/21 17:41 08/15/21 20:37 Sodium Level 135 mmol/L (136-145) Potassium Level 4.4 mmol/L (3.5-5.1) Chloride Level 97 mmol/L (98-107) Carbon Dioxide Level 32 mmol/L (21-32) Anion Gap 6 (6-14) Blood Urea Nitrogen 27 mg/dL (8-26) Creatinine 1.4 mg/dL (0.7-1.3) Estimated GFR (Cockcroft-Gault) 52.8 Glucose Level 198 mg/dL (70-99) Calcium Level 8.0 mg/dL (8.5-10.1) Glucose (Fingerstick) 269 mg/dL (70-99) 112 mg/dL (70-99) 182 mg/dL (70-99) Test 08/16/21 03:42 08/16/21 07:50 08/16/21 11:30 Glucose (Fingerstick) 177 mg/dL (70-99) 221 mg/dL (70-99) 303 mg/dL (70-99) Laboratory Tests Test 08/15/21 17:41 08/15/21 20:37 08/16/21 03:42 08/16/21 07:50 Glucose (Fingerstick) 112 mg/dL (70-99) 182 mg/dL (70-99) 177 mg/dL (70-99) 221 mg/dL (70-99) Test 08/16/21 11:30 Glucose (Fingerstick) 303 mg/dL (70-99) Medications Active Scripts Medications Dose Route/Sig Max Daily Dose Days Date Category Hydrocodone-Acetamin 5-325 mg (Hydrocodone/Acetaminophen) 1 Each Tablet 1 Tab PO PRN Q4HRS PRN 08/12/21 Reported Metolazone 2.5 Mg Tablet 5 Mg PO DAILY MDD 5 mg 10 04/28/21 Rx Lasix (Furosemide) 40 Mg Tablet 1 Tab PO DAILY 30 04/28/21 Rx Proair Hfa (Albuterol Sulfate) 8.5 Gm Hfa.aer.ad 2.5 Mg NEB PRN Q4HRS PRN 30 04/28/21 Rx Klor-Con 10 (Potassium Chloride) 10 Meq Tablet.er 10 Meq PO BIDAFTMEAL 30 12/14/20 Rx Xarelto (Rivaroxaban) 10 Mg Tablet 20 Mg PO DAILYWSUP 30 12/14/20 Rx Aspirin 325 Mg Tablet 325 Mg PO DAILY 06/30/20 Reported Lisinopril 10 Mg Tablet 10 Mg PO DAILY 30 06/24/19 Rx Toprol XL (Metoprolol Succinate) 50 Mg Tab.er.24h 50 Mg PO DAILY 30 06/24/19 Rx Atorvastatin Calcium 10 Mg Tablet 10 Mg PO QHS 30 06/24/19 Rx Novolog (Insulin Aspart) 100 Unit/1 Ml Vial 50 Unit SQ TIDWMEALHC 06/19/19 Reported Tresiba Flextouch U-200 (Insulin Degludec) 200 Unit/1 Ml Insuln.pen 160 Unit SQ DAILY 06/19/19 Reported Impression . 1. Abnormal CT chest revealing a 1.6 irregular foci opacity in the right middle lobe. 2. Tobacco dependence, quit 6 years ago. 3. Morbid obesity, BMI of 61. 4. Acute on chronic diastolic/systolic heart failure. 5. Atrial fibrillation. 6. Hypertension. 7. Diabetes. 8. Chronic obstructive pulmonary disease. 9. Cardiomyopathy with an ejection fraction of 35%. Plan . PLAN: 1. I have reviewed the CT chest. Recommend follow up as an outpatient with either repeat CT in 2 months with possible PET scan if parenchymal abnormality persist.. 2. Diurese per Cardiology. 3. Continue oxygen supplementation. 4. Sleep study as an outpatient. 5. Clinically improving. Possible discharge in next 24 hours. ELVIS DUMAS MD Aug 16, 2021 11:57
--- NOTE | 2021-08-16 13:05 | NUR ---
SS following up with discharge planning. SS reviewed pt chart and discussed with pt RN. Pt is currently requiring oxygen at two liters nasal canula. Pt on IV Lasix. Cardiology and Pulmonology following. Discharge plan is currently to home when medically ready for discharge. Pt has home oxygen. SS will continue to follow for discharge planning.
[2021-08-16 14:58] VITALS: BP 104/62
[2021-08-16] MEDS: RIVAROXABAN 10 MG TABLET. PO SCH (17:57)
[2021-08-16 19:21] VITALS: BP 113/81
[2021-08-16] MEDS: ATORVASTATIN CALCIUM 10 MG TABLET. PO SCH (20:42)
[2021-08-16] MEDS: HYDROcodone/APAP 5/325MG 1 TAB TABLET PO PRN (20:43)
[2021-08-16] MEDS: INSULIN GLARGINE SYRINGE. SQ SCH (20:45)
[2021-08-16 22:43] VITALS: BP 129/77
--- NOTE | 2021-08-16 23:26 | NUR ---
PT PUSHED CALL LIGHT STATED HE FELL ON FLOOR, STAFF ENTERED ROOM PT WAS SITTING IN CHAIR. PT ALERT AND ORIENTED X4, ANSWERED QUESTIONS APPROPRIATELY. VSS, DENIES C/O PAIN, MAEW. THE CHARGE NURSE, BACTERIOLOGIST INDUSTRIAL, AND DR SIMEON NOTIFIED. NO NEW ORDERS, WILL CONT TO MONITOR PT SAFETY AND STATUS. PMRN
[2021-08-17 03:03] VITALS: BP 109/57
[2021-08-17 05:19] LABS: CALCIUM 7.9 mg/dL (8.5-10.1); CREATININE 1.6 mg/dL (0.7-1.3); GFR 45.3; POTASSIUM 4.4 mmol/L (3.5-5.1)
[2021-08-17 07:00] VITALS: BP 136/80
[2021-08-17] MEDS: INSULIN LISPRO 300 UNITS/3 ML VIAL. SQ SCH ×3 (07:30→16:48)
[2021-08-17] MEDS: AMMONIUM LACTATE 12% TOPICAL LOTION 225GM BOTTLE. TP SCH ×2 (08:43→21:00)
[2021-08-17] MEDS: FUROSEMIDE 40 MG/4 ML VIAL. IVP SCH ×2 (08:57→13:49)
[2021-08-17] MEDS: LISINOPRIL 10 MG TABLET PO SCH (08:58)
[2021-08-17] MEDS: METOPROLOL SUCC 24HR ER 50 MG TAB.ER.24H. PO SCH (08:58)
[2021-08-17] MEDS: ASPIRIN 325 MG TABLET PO SCH (08:58)
[2021-08-17] MEDS: POTASSIUM CHLORIDE 10 MEQ TABLET.ER. PO SCH ×2 (08:58→16:49)
[2021-08-17] MEDS: metOLazone 2.5 MG TABLET PO SCH (08:58)
[2021-08-17 11:00] VITALS: BP 105/71
--- NOTE | 2021-08-17 11:13 | PDOC ---
HARVEY WONG DIELECTRIC TESTING MACHINE OPERATOR 08/17/21 1113: CARDIO Progress Notes Date and Time Date of Service 08/17/21 Time of Evaluation 1110 Subjective Subjective: No Chest Pain, No Palpitations, No Dizziness, Other (feeling better today ) Vitals Vitals Vital Signs Date Time Temp Pulse Resp B/P (MAP) Pulse Ox O2 Delivery O2 Flow Rate FiO2 08/17/21 08:58 86 136/80 08/17/21 08:00 Nasal Cannula 2.0 08/17/21 07:00 97.6 18 98 97.6 Weight Weight [ ] Input and Output Intake and Output Intake and Output 08/17/21 07:00 Intake Total 1350 ml Output Total 4400 ml Balance -3050 ml Intake Oral 1350 ml Output Urine Total 4400 ml # Voids 1 # Bowel Movements 1 Laboratory Labs Laboratory Tests Test 08/16/21 11:30 08/16/21 14:56 08/16/21 16:43 08/16/21 20:21 Glucose (Fingerstick) 303 mg/dL (70-99) 156 mg/dL (70-99) 141 mg/dL (70-99) 191 mg/dL (70-99) Test 08/17/21 04:25 08/17/21 08:12 08/17/21 11:08 Sodium Level 138 mmol/L (136-145) Potassium Level 4.4 mmol/L (3.5-5.1) Chloride Level 96 mmol/L (98-107) Carbon Dioxide Level 33 mmol/L (21-32) Anion Gap 9 (6-14) Blood Urea Nitrogen 32 mg/dL (8-26) Creatinine 1.6 mg/dL (0.7-1.3) Estimated GFR (Cockcroft-Gault) 45.3 Glucose Level 270 mg/dL (70-99) Calcium Level 7.9 mg/dL (8.5-10.1) Glucose (Fingerstick) 253 mg/dL (70-99) 235 mg/dL (70-99) Physical Exam HEENT: Neck Supple W Full Motion Chest: Symmetric LUNGS: Other (diminished ) Heart: irregularly irregular (AFIB- rate controlled ) Abdomen: Other (obese, ascites ) Extremities: Other (2+ bilateral LE edema. chronic venous stasis changes bilateral LE) Neurology: alert, oriented, follow commands Assessment Assessment 1. Acute respiratory failure, multifactorial with cor pulmonale, CHF, probable LAURA. Echo 07/07 with PAP 47 mmHg. 2. Acute on chronic diastolic CHF. Poor dietary compliance. Echo 07/07 showed LVEF 60-65%. Improving with diuresis 3. PAFIB; presently AFIB, rate controlled overall. 4. Hypertension; controlled 5. Morbid obesity with probable LAURA 6. Diabetes, II; uncontrolled. A1C 12.3. as per IM 7. HLP: statin 8. Noncompliance; has failed follow up in our office and outpatient testing as scheduled 9. NAE; Cr ^ 1.6 Recommendations Continue Lasix, metolazone Monitor renal function closely Daily standing wt. Accurate I and O. Reinforced importance of 2000cc FR and 2 Gm Na diet, diabetes control, and we ight loss Continue metoprolol for rate control Xarelto for stroke prophylaxis Outpatient echocardiogram, stress test Needs outpatient sleep study. Consider outpatient CV if he remains in AFIB Supportive care Justicifation of Admission Dx: Justifications for Admission: Justification of Admission Dx: Yes TINY CHURCH MD 08/17/21 1711: CARDIO Progress Notes Assessment Assessment Patient seen and examined. Agree with ARABIC TEACHER's assessment plan. Acute on chronic diastolic heart failure improving with diuresis with lasix and metolazone Atrial fibrillation rate well controlled. Continue Xarelto for stroke prophylaxis. We will consider outpatient cardioversion if he continues to be in atrial fibrillation HARVEY WONG APRN Aug 17, 2021 11:13 TINY CHURCH MD Aug 17, 2021 17:11
--- NOTE | 2021-08-17 12:27 | PDOC ---
PULMONARY PROGRESS NOTES DATE: 08/17/21 TIME: 12:26 Subjective Patient clinically feels better. Feels some tightness in the abdomen. Currently on 2L NC; baseline 1-3L at home Vitals Vital Signs Date Time Temp Pulse Resp B/P (MAP) Pulse Ox O2 Delivery O2 Flow Rate FiO2 08/17/21 11:00 98.3 92 20 105/71 (82) 99 Nasal Cannula 2.0 98.3 General: Alert, Oriented X4, No acute distress Lungs: Clear Cardiovascular: S1, S2 Abdomen: Soft, Non-tender, Other (Markedly obese) Extremities: Other (2+ pitting edema.) Labs Laboratory Tests Test 08/15/21 17:41 08/15/21 20:37 08/16/21 03:42 08/16/21 07:50 Glucose (Fingerstick) 112 mg/dL (70-99) 182 mg/dL (70-99) 177 mg/dL (70-99) 221 mg/dL (70-99) Test 08/16/21 11:30 08/16/21 14:56 08/16/21 16:43 08/16/21 20:21 Glucose (Fingerstick) 303 mg/dL (70-99) 156 mg/dL (70-99) 141 mg/dL (70-99) 191 mg/dL (70-99) Test 08/17/21 04:25 08/17/21 08:12 08/17/21 11:08 Sodium Level 138 mmol/L (136-145) Potassium Level 4.4 mmol/L (3.5-5.1) Chloride Level 96 mmol/L (98-107) Carbon Dioxide Level 33 mmol/L (21-32) Anion Gap 9 (6-14) Blood Urea Nitrogen 32 mg/dL (8-26) Creatinine 1.6 mg/dL (0.7-1.3) Estimated GFR (Cockcroft-Gault) 45.3 Glucose Level 270 mg/dL (70-99) Calcium Level 7.9 mg/dL (8.5-10.1) Glucose (Fingerstick) 253 mg/dL (70-99) 235 mg/dL (70-99) Laboratory Tests Test 08/16/21 14:56 08/16/21 16:43 08/16/21 20:21 3/3/22 04:25 Glucose (Fingerstick) 156 mg/dL (70-99) 141 mg/dL (70-99) 191 mg/dL (70-99) Sodium Level 138 mmol/L (136-145) Potassium Level 4.4 mmol/L (3.5-5.1) Chloride Level 96 mmol/L (98-107) Carbon Dioxide Level 33 mmol/L (21-32) Anion Gap 9 (6-14) Blood Urea Nitrogen 32 mg/dL (8-26) Creatinine 1.6 mg/dL (0.7-1.3) Estimated GFR (Cockcroft-Gault) 45.3 Glucose Level 270 mg/dL (70-99) Calcium Level 7.9 mg/dL (8.5-10.1) Test 08/17/21 08:12 08/17/21 11:08 Glucose (Fingerstick) 253 mg/dL (70-99) 235 mg/dL (70-99) Medications Active Scripts Medications Dose Route/Sig Max Daily Dose Days Date Category Hydrocodone-Acetamin 5-325 mg (Hydrocodone/Acetaminophen) 1 Each Tablet 1 Tab PO PRN Q4HRS PRN 08/12/21 Reported Metolazone 2.5 Mg Tablet 5 Mg PO DAILY MDD 5 mg 10 04/28/21 Rx Lasix (Furosemide) 40 Mg Tablet 1 Tab PO DAILY 30 04/28/21 Rx Proair Hfa (Albuterol Sulfate) 8.5 Gm Hfa.aer.ad 2.5 Mg NEB PRN Q4HRS PRN 30 04/28/21 Rx Klor-Con 10 (Potassium Chloride) 10 Meq Tablet.er 10 Meq PO BIDAFTMEAL 30 12/14/20 Rx Xarelto (Rivaroxaban) 10 Mg Tablet 20 Mg PO DAILYWSUP 30 12/14/20 Rx Aspirin 325 Mg Tablet 325 Mg PO DAILY 06/30/20 Reported Lisinopril 10 Mg Tablet 10 Mg PO DAILY 30 06/24/19 Rx Toprol XL (Metoprolol Succinate) 50 Mg Tab.er.24h 50 Mg PO DAILY 30 06/24/19 Rx Atorvastatin Calcium 10 Mg Tablet 10 Mg PO QHS 30 06/24/19 Rx Novolog (Insulin Aspart) 100 Unit/1 Ml Vial 50 Unit SQ TIDWMEALHC 06/19/19 Reported Tresiba Flextouch U-200 (Insulin Degludec) 200 Unit/1 Ml Insuln.pen 160 Unit SQ DAILY 06/19/19 Reported Impression . acute RF due to right heart failure/ CMP Abnormal CT chest revealing irregular 1.6 cm right middle lobe opacity. Inflammatory versus neoplastic. Tobacco dependence in remission Acute on chronic cor pulmonale Cardiomyopathy with an EF of 35%. Plan . PLAN: 1. I have reviewed the CT chest. Recommend follow up as an outpatient with either repeat CT in 2 months with possible PET scan if parenchymal abnormality persist.. 2. Diurese per Cardiology. 3. Continue oxygen supplementation. 4. Sleep study as an outpatient. 5. Clinically improving. Possible discharge in next 24 hours. ELVIS DUMAS MD Aug 17, 2021 12:27
[2021-08-17] MEDS: ALBUTEROL SULFATE 2.5 MG/3 ML NEBU. NEB PRN (12:33)
[2021-08-17 15:10] VITALS: BP 111/78
[2021-08-17] MEDS: RIVAROXABAN 10 MG TABLET. PO SCH (16:49)
[2021-08-17 19:00] VITALS: BP 109/61
--- NOTE | 2021-08-17 19:32 | PN ---
DATE: 08/17/2021 DAILY PROGRESS NOTE LOCATION: He is in room 668. SUBJECTIVE: This 55-year-old male remains hospitalized with shortness of breath with congestive heart failure due to cor pulmonale. He is showing daily, very slow improvement. He continues to diurese with outputs greater than intake. He feels like he is still a day or two off from being able to walk to the bathroom, but notes improvement on a daily basis. His BUN and creatinine were rising on last lab yesterday and we will recheck in the morning as we may be getting him intravascularly dry. OBJECTIVE: VITAL SIGNS: Stable. He is afebrile, awake and alert. Output is greater than intake, scale showed decreasing weight. CHEST: Decreased breath sounds. HEART: Irregularly irregular with a controlled rate. ABDOMEN: Obese and benign. EXTREMITIES: Edema is down slightly less than 1%. ASSESSMENT: 1. Shortness of breath due to fluid overload with slow improvement due to congestive heart failure due to cor pulmonale. 2. Abnormal CT chest revealing right middle lobe opacity. 3. Diabetes with variable blood sugars. PLAN: Continue present diuresis. Recheck renal function in the morning. Possibly home in the next day or so. TRACY DR: Juliet TID: [id number]
[2021-08-17] MEDS: ATORVASTATIN CALCIUM 10 MG TABLET. PO SCH (21:46)
[2021-08-17] MEDS: INSULIN GLARGINE SYRINGE. SQ SCH (21:48)
[2021-08-17 22:18] VITALS: BP 121/73
[2021-08-18 02:00] VITALS: BP 124/67
[2021-08-18 04:58] LABS: CALCIUM 8.3 mg/dL (8.5-10.1); CREATININE 1.5 mg/dL (0.7-1.3); GFR 48.8; POTASSIUM 4.4 mmol/L (3.5-5.1)
[2021-08-18 07:00] VITALS: BP 122/70
[2021-08-18] MEDS: AMMONIUM LACTATE 12% TOPICAL LOTION 225GM BOTTLE. TP SCH ×2 (07:37→21:00)
[2021-08-18] MEDS: INSULIN LISPRO 300 UNITS/3 ML VIAL. SQ SCH ×3 (08:31→17:05)
[2021-08-18] MEDS: ASPIRIN 325 MG TABLET PO SCH (08:32)
[2021-08-18] MEDS: FUROSEMIDE 40 MG/4 ML VIAL. IVP SCH ×2 (08:32→13:34)
[2021-08-18] MEDS: POTASSIUM CHLORIDE 10 MEQ TABLET.ER. PO SCH ×2 (08:32→17:06)
[2021-08-18] MEDS: metOLazone 2.5 MG TABLET PO SCH (08:32)
[2021-08-18] MEDS: METOPROLOL SUCC 24HR ER 50 MG TAB.ER.24H. PO SCH (08:33)
[2021-08-18] MEDS: LISINOPRIL 10 MG TABLET PO SCH (08:33)
--- NOTE | 2021-08-18 10:44 | PDOC ---
PULMONARY PROGRESS NOTES DATE: 08/18/21 TIME: 10:43 Subjective Patient clinically feels better. Currently on 2L NC; baseline 1-3L at home Vitals Vital Signs Date Time Temp Pulse Resp B/P (MAP) Pulse Ox O2 Delivery O2 Flow Rate FiO2 08/18/21 08:33 80 122/70 08/18/21 08:00 Nasal Cannula 2.0 08/18/21 07:00 97.8 18 98 97.8 General: Alert, Oriented X4, No acute distress Lungs: Clear Cardiovascular: S1, S2 Abdomen: Soft, Non-tender, Other (Markedly obese) Extremities: Other (2+ pitting edema.) Labs Laboratory Tests Test 08/16/21 11:30 08/16/21 14:56 08/16/21 16:43 08/16/21 20:21 Glucose (Fingerstick) 303 mg/dL (70-99) 156 mg/dL (70-99) 141 mg/dL (70-99) 191 mg/dL (70-99) Test 08/17/21 04:25 08/17/21 08:12 08/17/21 11:08 08/17/21 16:12 Sodium Level 138 mmol/L (136-145) Potassium Level 4.4 mmol/L (3.5-5.1) Chloride Level 96 mmol/L (98-107) Carbon Dioxide Level 33 mmol/L (21-32) Anion Gap 9 (6-14) Blood Urea Nitrogen 32 mg/dL (8-26) Creatinine 1.6 mg/dL (0.7-1.3) Estimated GFR (Cockcroft-Gault) 45.3 Glucose Level 270 mg/dL (70-99) Calcium Level 7.9 mg/dL (8.5-10.1) Glucose (Fingerstick) 253 mg/dL (70-99) 235 mg/dL (70-99) 198 mg/dL (70-99) Test 08/17/21 20:25 08/18/21 04:00 08/18/21 07:09 Glucose (Fingerstick) 201 mg/dL (70-99) 225 mg/dL (70-99) Sodium Level 138 mmol/L (136-145) Potassium Level 4.4 mmol/L (3.5-5.1) Chloride Level 96 mmol/L (98-107) Carbon Dioxide Level 35 mmol/L (21-32) Anion Gap 7 (6-14) Blood Urea Nitrogen 33 mg/dL (8-26) Creatinine 1.5 mg/dL (0.7-1.3) Estimated GFR (Cockcroft-Gault) 48.8 Glucose Level 217 mg/dL (70-99) Calcium Level 8.3 mg/dL (8.5-10.1) Laboratory Tests Test 08/17/21 11:08 08/17/21 16:12 08/17/21 20:25 08/18/21 04:00 Glucose (Fingerstick) 235 mg/dL (70-99) 198 mg/dL (70-99) 201 mg/dL (70-99) Sodium Level 138 mmol/L (136-145) Potassium Level 4.4 mmol/L (3.5-5.1) Chloride Level 96 mmol/L (98-107) Carbon Dioxide Level 35 mmol/L (21-32) Anion Gap 7 (6-14) Blood Urea Nitrogen 33 mg/dL (8-26) Creatinine 1.5 mg/dL (0.7-1.3) Estimated GFR (Cockcroft-Gault) 48.8 Glucose Level 217 mg/dL (70-99) Calcium Level 8.3 mg/dL (8.5-10.1) Test 08/18/21 07:09 Glucose (Fingerstick) 225 mg/dL (70-99) Medications Active Scripts Medications Dose Route/Sig Max Daily Dose Days Date Category Hydrocodone-Acetamin 5-325 mg (Hydrocodone/Acetaminophen) 1 Each Tablet 1 Tab PO PRN Q4HRS PRN 08/12/21 Reported Metolazone 2.5 Mg Tablet 5 Mg PO DAILY MDD 5 mg 10 04/28/21 Rx Lasix (Furosemide) 40 Mg Tablet 1 Tab PO DAILY 30 04/28/21 Rx Proair Hfa (Albuterol Sulfate) 8.5 Gm Hfa.aer.ad 2.5 Mg NEB PRN Q4HRS PRN 30 04/28/21 Rx Klor-Con 10 (Potassium Chloride) 10 Meq Tablet.er 10 Meq PO BIDAFTMEAL 30 12/14/20 Rx Xarelto (Rivaroxaban) 10 Mg Tablet 20 Mg PO DAILYWSUP 30 12/14/20 Rx Aspirin 325 Mg Tablet 325 Mg PO DAILY 06/30/20 Reported Lisinopril 10 Mg Tablet 10 Mg PO DAILY 30 06/24/19 Rx Toprol XL (Metoprolol Succinate) 50 Mg Tab.er.24h 50 Mg PO DAILY 30 06/24/19 Rx Atorvastatin Calcium 10 Mg Tablet 10 Mg PO QHS 30 06/24/19 Rx Novolog (Insulin Aspart) 100 Unit/1 Ml Vial 50 Unit SQ TIDWMEALHC 06/19/19 Reported Tresiba Flextouch U-200 (Insulin Degludec) 200 Unit/1 Ml Insuln.pen 160 Unit SQ DAILY 06/19/19 Reported Impression . acute RF due to right heart failure/ CMP Abnormal CT chest revealing irregular 1.6 cm right middle lobe opacity. Inflammatory versus neoplastic. Tobacco dependence in remission Acute on chronic cor pulmonale Cardiomyopathy with an EF of 35%. Plan . PLAN: 1. I have reviewed the CT chest. Recommend follow up as an outpatient with either repeat CT in 2 months with possible PET scan if parenchymal abnormality persist.. Patient have follow-up scans per PCP. 2. Diurese per Cardiology. 3. Continue oxygen supplementation. 4. Sleep study as an outpatient. 5. Clinically improving. Possible discharge in next 24 hours. 6. We will see him as needed ELVIS DUMAS MD Aug 18, 2021 10:44
[2021-08-18 11:00] VITALS: BP 107/66
[2021-08-18] MEDS: ALBUTEROL SULFATE 2.5 MG/3 ML NEBU. NEB PRN (11:17)
[2021-08-18 15:00] VITALS: BP 122/72
--- NOTE | 2021-08-18 16:25 | PDOC ---
PROGRESS NOTES Date of Service: DATE: 08/18/21 TIME: 16:24 Subjective Subjective Feeling better with improvement in dyspnea Objective Objective Vital Signs Date Time Temp Pulse Resp B/P (MAP) Pulse Ox O2 Delivery O2 Flow Rate FiO2 08/18/21 15:00 97.9 89 18 122/72 (89) 98 Nasal Cannula 2.0 97.9 Intake and Output 08/18/21 07:00 Intake Total 720 ml Output Total 4475 ml Balance -3755 ml Intake Oral 720 ml Output Urine Total 4475 ml # Voids 1 # Bowel Movements 2 Physical Exam Abdomen: Normal bowel sounds Heart: Regular rate General: mild distress HEENT: Atraumatic Lungs: Other (Mildly decreased breath sounds) Assessment Assessment 1. Acute respiratory failure, multifactorial with cor pulmonale, CHF, probable LAURA. Echo 07/07 with PAP 47 mmHg. 2. Acute on chronic diastolic CHF. Poor dietary compliance. Echo 07/07 showed LVEF 60-65%. Improving with diuresis 3. PAFIB; presently AFIB, rate controlled overall. 4. Hypertension; controlled 5. Morbid obesity with probable LAURA 6. Diabetes, II; uncontrolled. A1C 12.3. as per IM 7. HLP: statin 8. Noncompliance; has failed follow up in our office and outpatient testing as scheduled 9. Acute on chronic renal insufficiency: BUN/creatinine increased suggesting prerenal picture Recommendations Change Lasix to p.o., continue metolazone Daily standing wt. Accurate I and O. Reinforced importance of 2000cc FR and 2 Gm Na diet, diabetes control, and weight loss Continue metoprolol for rate control Xarelto for stroke prophylaxis Outpatient echocardiogram, stress test Needs outpatient sleep study. Consider outpatient CV if he remains in AFIB Supportive car Plan Plan of Care Problems Medical Problems: (1) Dyspnea Status: Acute (2) Obesities, morbid Status: Acute (3) Pulmonary nodule Status: Acute Comment Review of Relevant I have reviewed the following items uma (where applicable) has been applied. Labs Laboratory Tests Test 08/17/21 20:25 08/18/21 04:00 08/18/21 07:09 08/18/21 10:55 Glucose (Fingerstick) 201 mg/dL (70-99) 225 mg/dL (70-99) 293 mg/dL (70-99) Sodium Level 138 mmol/L (136-145) Potassium Level 4.4 mmol/L (3.5-5.1) Chloride Level 96 mmol/L (98-107) Carbon Dioxide Level 35 mmol/L (21-32) Anion Gap 7 (6-14) Blood Urea Nitrogen 33 mg/dL (8-26) Creatinine 1.5 mg/dL (0.7-1.3) Estimated GFR (Cockcroft-Gault) 48.8 Glucose Level 217 mg/dL (70-99) Calcium Level 8.3 mg/dL (8.5-10.1) Vitals/I & O Vital Sign - Last 24 Hours 08/17/21 08/17/21 08/17/21 08/18/21 19:00 20:15 22:18 02:00 Temp 99.3 97.7 97.8 99.3 97.7 97.8 Pulse 102 86 82 Resp 18 20 20 B/P (MAP) 109/61 (77) 121/73 (89) 124/67 (86) Pulse Ox 98 98 97 O2 Delivery Nasal Cannula Nasal Cannula Nasal Cannula Nasal Cannula O2 Flow Rate 2.0 2.0 2.0 2.0 08/18/21 08/18/21 08/18/21 08/18/21 07:00 08:00 08:33 08:33 Temp 97.8 97.8 Pulse 80 80 80 Resp 18 B/P (MAP) 122/70 (87) 122/70 122/70 Pulse Ox 98 O2 Delivery Nasal Cannula Nasal Cannula O2 Flow Rate 2.0 2.0 08/18/21 08/18/21 08/18/21 11:00 11:18 15:00 Temp 98.0 97.9 98.0 97.9 Pulse 91 89 Resp 20 18 B/P (MAP) 107/66 (80) 122/72 (89) Pulse Ox 91 98 98 O2 Delivery Nasal Cannula Nasal Cannula Nasal Cannula O2 Flow Rate 2.0 2.0 2.0 Intake and Output 08/17/21 08/17/21 08/18/21 15:00 23:00 07:00 Intake Total 400 ml 200 ml 120 ml Output Total 1500 ml 2300 ml 675 ml Balance -1100 ml -2100 ml -555 ml TINY CHURCH MD 4, 2022 16:25
[2021-08-18] MEDS: FUROSEMIDE 40 MG TABLET. PO SCH (16:40)
[2021-08-18] MEDS: RIVAROXABAN 10 MG TABLET. PO SCH (17:06)
[2021-08-18 19:06] VITALS: BP 131/72
[2021-08-18] MEDS: HYDROcodone/APAP 5/325MG 1 TAB TABLET PO PRN (20:18)
[2021-08-18] MEDS: ATORVASTATIN CALCIUM 10 MG TABLET. PO SCH (20:18)
--- NOTE | 2021-08-18 20:58 | PN ---
DATE: 08/18/2021 LOCATION: He is in room 668. SUBJECTIVE: This 55-year-old male remains hospitalized with shortness of breath and congestive heart failure due to cor pulmonale. He is showing daily slow improvement. Actually looks quite a bit better today and states it is much easier to get back to the bathroom. He has lost at least 12 plus kilograms of weight since admission. BUN and creatinine are stable and will be rechecked in the morning with likely discharge. OBJECTIVE: VITAL SIGNS: Stable. He is afebrile. GENERAL: He is awake and alert. Output is greater than intake. Scales continue to show decreasing weight. CHEST: Decreased breath sounds. HEART: Irregularly irregular with controlled rate. Abdomen: Obese and benign. EXTREMITIES: Edema is down to pretty much his baseline. ASSESSMENT: 1. Shortness of breath due to fluid overload, slow improvement due to congestive heart failure due to cor pulmonale. 2. Abnormal CT chest revealing right middle lobe opacity. 3. Diabetes with variable blood sugars. PLAN: Continue present diuresis with eye towards discharge probably as early as tomorrow. EUGENIO DR: Juliet TID: [id number]
[2021-08-18] MEDS: INSULIN GLARGINE SYRINGE. SQ SCH (21:34)
[2021-08-18 23:10] VITALS: BP 125/76
--- NOTE | 2021-08-19 02:04 | NUR ---
Pt pulled out IV on Right FA. Pt refuses a new IV at this time.
[2021-08-19 03:55] VITALS: BP 148/73
[2021-08-19 06:02] LABS: CALCIUM 8.7 mg/dL (8.5-10.1); CREATININE 1.5 mg/dL (0.7-1.3); GFR 48.8
[2021-08-19 07:00] VITALS: BP 178/76
[2021-08-19] MEDS: INSULIN LISPRO 300 UNITS/3 ML VIAL. SQ SCH (07:30)
[2021-08-19] MEDS: metOLazone 2.5 MG TABLET PO SCH (08:34)
[2021-08-19 08:35] VITALS: BP 178/76
[2021-08-19] MEDS: METOPROLOL SUCC 24HR ER 50 MG TAB.ER.24H. PO SCH (08:35)
[2021-08-19] MEDS: FUROSEMIDE 40 MG TABLET. PO SCH (08:35)
[2021-08-19] MEDS: POTASSIUM CHLORIDE 10 MEQ TABLET.ER. PO SCH (08:35)
[2021-08-19] MEDS: LISINOPRIL 10 MG TABLET PO SCH (08:35)
[2021-08-19] MEDS: ASPIRIN 325 MG TABLET PO SCH (08:35)
[2021-08-19] MEDS: AMMONIUM LACTATE 12% TOPICAL LOTION 225GM BOTTLE. TP SCH (08:36)
--- NOTE | 2021-08-19 08:38 | DS ---
DATE OF DISCHARGE: 08/19/2021 PRIMARY DIAGNOSIS: Shortness of breath due to fluid overload due to congestive heart failure with cor pulmonale. ADDITIONAL DIAGNOSES: 1. Abnormal CT chest revealing right middle lobe opacity with 2-month followup recommended. 2. Diabetes with poor control on admission with A1c of 12+, but the patient admitting he is unable to afford his medications at home all the time and does not take his insulin like he should. CHIEF COMPLAINT AND HISTORY OF PRESENT ILLNESS: This 55-year-old male presented to the Emergency Room with shortness of breath, massive fluid overload, was admitted for the same with congestive heart failure. SUMMARY OF STAY: The patient was diuresed throughout the stay with good results and loss throughout the stay of approximately 17 kilos of fluid. His breathing got better as he went through the hospitalization with the continued fluid loss. Renal function stayed approximately the same. He maintained his potassium with the same. Creatinine at discharge was 1.5, was 1.2 on admission, but stated 1.5 during majority of the stay. Again, A1c was 12.3, but again noncompliance with medication due to inability to afford at home. He was at his baseline, was able to get up and walk to the bathroom and back without too much difficulty and it was felt he could be dismissed with outpatient followup and this was accomplished. DISPOSITION: The patient is discharged to home. DIET: ADA, low-sodium diet. ACTIVITY: As tolerated. Office in 2 weeks. Discharge meds are listed on the computer have been addressed. He was educated on the low sodium diet as well as told about the need for repeat imaging of the chest in a couple of months period of time. ROBERTO DR: Juliet TID: [id number]
--- NOTE | 2021-08-19 09:45 | PDOC ---
PROGRESS NOTES Date of Service: DATE: 08/19/21 TIME: 09:45 Subjective Subjective Feeling better with improvement in dyspnea Objective Objective Vital Signs Date Time Temp Pulse Resp B/P (MAP) Pulse Ox O2 Delivery O2 Flow Rate FiO2 08/19/21 08:35 102 178/76 08/19/21 08:00 Nasal Cannula 2.0 08/19/21 07:00 22 97 08/19/21 03:55 97.7 97.7 Intake and Output 08/19/21 07:00 Intake Total 540 ml Output Total 4650 ml Balance -4110 ml Intake Oral 540 ml Output Urine Total 4650 ml Physical Exam Abdomen: Normal bowel sounds Heart: Regular rate General: mild distress HEENT: Atraumatic Lungs: Other (Mildly decreased breath sounds) Assessment Assessment 1. Acute respiratory failure, multifactorial with cor pulmonale, CHF, probable LAURA. Echo 07/07 with PAP 47 mmHg. 2. Acute on chronic diastolic CHF. Poor dietary compliance. Echo 07/07 showed LVEF 60-65%. Improving with diuresis 3. PAFIB; presently AFIB, rate controlled overall. 4. Hypertension; controlled 5. Morbid obesity with probable LAURA 6. Diabetes, II; uncontrolled. A1C 12.3. as per IM 7. HLP: statin 8. Noncompliance; has failed follow up in our office and outpatient testing as scheduled 9. Acute on chronic renal insufficiency: BUN/creatinine increased suggesting prerenal picture Recommendations Continue p.o. Lasix and metolazone Daily standing wt. Accurate I and O. Reinforced importance of 2000cc FR and 2 Gm Na diet, diabetes control, and weight loss Continue metoprolol for rate control Xarelto for stroke prophylaxis Outpatient echocardiogram, stress test Needs outpatient sleep study. Consider outpatient CV if he remains in AFIB Follow-up in 1 month Plan Plan of Care Problems Medical Problems: (1) Dyspnea Status: Acute (2) Obesities, morbid Status: Acute (3) Pulmonary nodule Status: Acute Comment Review of Relevant I have reviewed the following items uma (where applicable) has been applied. Labs Laboratory Tests Test 08/18/21 10:55 08/18/21 16:52 08/18/21 20:44 08/19/21 04:00 Glucose (Fingerstick) 293 mg/dL (70-99) 210 mg/dL (70-99) 234 mg/dL (70-99) Sodium Level 139 mmol/L (136-145) Potassium Level 4.0 mmol/L (3.5-5.1) Chloride Level 96 mmol/L (98-107) Carbon Dioxide Level 37 mmol/L (21-32) Anion Gap 6 (6-14) Blood Urea Nitrogen 35 mg/dL (8-26) Creatinine 1.5 mg/dL (0.7-1.3) Estimated GFR (Cockcroft-Gault) 48.8 Glucose Level 237 mg/dL (70-99) Calcium Level 8.7 mg/dL (8.5-10.1) Test 08/19/21 07:51 Glucose (Fingerstick) 255 mg/dL (70-99) Medications Current Medications Furosemide (Lasix) 40 mg [id number] PO Last administered on 08/19/21at 08:35; Start 08/18/21 at 17:00; Stop 08/19/21 at 09:20; Status DC Vitals/I & O Vital Sign - Last 24 Hours 08/18/21 08/18/21 08/18/21 08/18/21 11:00 11:18 15:00 19:06 Temp 98.0 97.9 97.9 98.0 97.9 97.9 Pulse 91 89 92 Resp 20 18 17 B/P (MAP) 107/66 (80) 122/72 (89) 131/72 (91) Pulse Ox 91 98 98 98 O2 Delivery Nasal Cannula Nasal Cannula Nasal Cannula Nasal Cannula O2 Flow Rate 2.0 2.0 2.0 2.0 08/18/21 08/18/21 08/18/21 08/18/21 20:00 20:18 20:48 23:10 Temp 97.6 97.6 Pulse 88 Resp 21 B/P (MAP) 125/76 (92) Pulse Ox 98 97 97 O2 Delivery Nasal Cannula Nasal Cannula Nasal Cannula Nasal Cannula O2 Flow Rate 2.0 2.0 2.0 2.0 08/19/21 08/19/21 08/19/21 08/19/21 03:55 07:00 08:00 08:35 Temp 97.7 97.7 Pulse 87 102 10 Resp B/P (MAP) 148/73 (98) 178/76 (110) 178/76 Pulse Ox 98 97 O2 Delivery Nasal Cannula Nasal Cannula Nasal Cannula O2 Flow Rate 2.0 2.0 2.0 08/19/21 08:35 Pulse 102 B/P (MAP) 178/76 Intake and Output 08/18/21 08/18/21 08/19/21 15:00 23:00 07:00 Intake Total 540 ml Output Total 2200 ml 1550 ml 900 ml Balance -2200 ml -1550 ml -360 ml TINY CHURCH MD Aug 19, 2021 09:45
== END 2021-08-19 09:20 | disposition home or self-care (01) | DRG 291 ==
LOC: ER 05:54 → 6 SOUTH 13:29
PROVIDERS: ADMIT Family Medicine; ATTEND Family Medicine
DX: I13.0 Hypertensive heart and chronic kidney disease with heart failure and stage 1 through stage 4 chronic kidney disease, or unspecified chronic kidney disease (principal); J96.00 Acute respiratory failure, unspecified whether with hypoxia or hypercapnia; I50.33 Acute on chronic diastolic (congestive) heart failure; N17.9 Acute kidney failure, unspecified; Z68.44 Body mass index [BMI] 60.0-69.9, adult; I42.9 Cardiomyopathy, unspecified; E11.22 Type 2 diabetes mellitus with diabetic chronic kidney disease; E11.65 Type 2 diabetes mellitus with hyperglycemia; E66.01 Morbid (severe) obesity due to excess calories; E78.5 Hyperlipidemia, unspecified; E88.81 Metabolic syndrome and other insulin resistance; F17.201 Nicotine dependence, unspecified, in remission; G47.33 Obstructive sleep apnea (adult) (pediatric); I27.81 Cor pulmonale (chronic); I48.0 Paroxysmal atrial fibrillation; I50.82 Biventricular heart failure; J44.9 Chronic obstructive pulmonary disease, unspecified; N18.9 Chronic kidney disease, unspecified; Z79.01 Long term (current) use of anticoagulants; Z79.4 Long term (current) use of insulin; Z79.899 Other long term (current) drug therapy; Z82.49 Family history of ischemic heart disease and other diseases of the circulatory system; Z91.11 Patient's noncompliance with dietary regimen; K21.9 Gastro-esophageal reflux disease without esophagitis; M19.90 Unspecified osteoarthritis, unspecified site; Z91.14 Patient's other noncompliance with medication regimen; Z88.0 Allergy status to penicillin; Z88.8 Allergy status to other drugs, medicaments and biological substances
CPT/HCPCS: 36415; 36600; 71045; 71275; 80048; 80053; 81001; 82550; 82962; 83036; 83735; 83880; 84443; 84484; 85025; 93005; 94640; 94760; 96374; J1815; J1940; Q9956; 99285-25; G0378; J7613